=== PATIENT | male | born 1965 | race Caucasian/White ===

== ENCOUNTER 2024-11-12 08:49 | Inpatient (IN) | payer OTHER, SELFPAY ==
[2024-11-12] VITALS (14 sets, daily range): BP systolic 108–163; BP diastolic 67–99; PULSE 89–131; RESP 16–19; TEMP 36.1–37.1; O2SAT 95–100; BMI 24.2
--- NOTE | ~2024-11-12 | US_ITS ---
EXAMINATION: US ABDOMEN LIMITED CLINICAL INFORMATION: Ascites. Elevated liver function tests.. COMPARISON: None available. TECHNIQUE: Real-time ultrasound of the right upper quadrant abdomen using grayscale technique. Limited exam. FINDINGS: Small to moderate amount of ascites. Liver measures 17 cm. Increased echotexture. US/US abdomen limited IMPRESSION: Limited examination demonstrated small to moderate volume of ascites. Electronically signed by: Cosme Vidal MD 11/12/2024 03:14 PM EDT
--- NOTE | ~2024-11-12 | US_ITS ---
EXAMINATION: US ABDOMEN LIMITED CLINICAL INFORMATION: Ascites. COMPARISON: None available. TECHNIQUE: Limited imaging of abdomen was performed. FINDINGS: Limited imaging of the abdomen reveals small amount of fluid not enough for therapeutic purposes. Patient was recently drained in the ER 2 days ago. US/US abdomen limited IMPRESSION: Small amount of free fluid in pelvis not enough for therapeutic paracentesis. The paracentesis has been canceled Electronically signed by: Oli Ambriz MD 11/14/2024 11:46 AM EDT
--- NOTE | ~2024-11-12 | CT_ITS ---
EXAMINATION: CT HEAD WITHOUT CONTRAST CLINICAL INFORMATION: ataxia COMPARISON: None available. TECHNIQUE: Contiguous axial imaging was performed from the skull base to vertex without intravenous administration of contrast. This CT examination was performed using dose optimization techniques as appropriate, variously including the following: *Automated exposure control *Adjustment of mA and/or kV according to patient size (this includes techniques or standardized protocols for targeted exams where dose is matched to indication/reason for exam; i.e. extremities or head) *Use of iterative reconstruction technique DLP: 711 mGy-cm FINDINGS: There is a 1 cm hypodensity in the left cerebellar deep white matter. No acute intracranial hemorrhage, mass effect, midline shift, hydrocephalus or herniation. Bennett-white matter differentiation is normal. Old lacunar infarcts, basal ganglia and extracapsular. Mild prominence of the extra-axial CSF spaces cerebral sulci and ventricles. Sellar/suprasellar region demonstrated no gross masses. Craniocervical junction demonstrates normal position of the cerebellar tonsils. Old traumatic deformity, nasal bones. No air-fluid levels in the included paranasal sinuses. Tympanic cavities and mastoid air cells are aerated. 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 Focal encephalomalacia, left cerebellopontine likely prior/old infarct, left PICA territory. No acute intracranial hemorrhage. Electronically signed by: Cosme Vidal MD 11/12/2024 11:18 AM EDT
--- NOTE | ~2024-11-12 | MR_ITS ---
EXAMINATION: MR BRAIN WITHOUT CONTRAST CLINICAL INFORMATION: Ataxia. COMPARISON: Correlated to CT November 12, 2024. TECHNIQUE: MRI of the brain was obtained using routine sequences without contrast. FINDINGS: No restricted diffusion. No acute intracranial hemorrhage, mass effect, midline shift, hydrocephalus or herniation. Bennett-white matter differentiation is normal. There are few scattered, supratentorial compartment susceptibility signal foci involving mostly right temporal pole. Old lacunar infarcts, left putamen left cerebellopontine with associated susceptibility likely representing old blood products. There is a cylindrical shaped susceptibility signal in the left temporoparietal region. Sellar/suprasellar region demonstrated no signal abnormality or masses. Craniocervical junction demonstrates normal position of the cerebellar tonsils. Flow-void signal within the main cerebral vessels is normal. Prominence of the extra-axial CSF spaces cerebral sulci. Small cavum septa pellucida, congenital. MR/MR head/brain wo con IMPRESSION: No acute stroke/nonhemorrhagic ischemia. Old likely hemorrhagic lacunar infarcts, left putamen and left cerebellum. 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 Old microhemorrhages concerning for hypertensive etiology. Electronically signed by: Cosme Vidal MD 11/13/2024 07:56 AM EDT
--- NOTE | 2024-11-12 08:58 | ECG_ITS ---
Test Reason : ABD PAIN Blood Pressure : */* mmHG Vent. Rate : 126 BPM Atrial Rate : 126 BPM P-R Int : 140 ms QRS Dur : 82 ms QT Int : 296 ms P-R-T Axes : 36 -32 89 degrees QTcB Int : 428 ms Sinus tachycardia Left axis deviation Minimal voltage criteria for LVH, may be normal variant ( R in aVL ) Anterolateral infarct , age undetermined Abnormal ECG No previous ECGs available Referred By: Generic ED Physician Electronically Signed By: Ko Guevara
--- NOTE | 2024-11-12 09:06 | ED_ITS ---
HPI - General Adult General Chief complaint: General Medical Stated complaint: Tingling/numbness in feet, abd bloating Time Seen by Provider: 11/12/24 09:06 Source: patient and RN notes reviewed Mode of arrival: ambulatory Limitations: no limitations History of Present Illness ED Provider: Melania Johnson PA-C HPI narrative: This is a 59-year-old male, with a past medical history of EtOH abuse discontinued 3 weeks ago, who presents emergency department with concerns of abdominal distention, and bilateral leg numbness and tingling for the last 3 weeks. Patient states that he was drinking at least 8 mix vodka drinks a day. He states that he was a drinker for a very long time, stating 50 years. Patient states that 3 weeks ago he stopped drinking alcohol together. He states that he felt as though he was in alcohol withdrawal for several days which has since resolved. He states that since stopping drinking he has developed a very distended abdomen, numbness and tingling into his legs. He states that he also has had some difficulty with ambulation. He denies history of similar symptoms in the past. Denies history of ascites. He states that he has not been seen by a doctor in a ?very long time?. He denies any fevers, chills, chest pain, shortness of breath, nausea, vomiting or diarrhea. He reports that approximately 2-3 weeks ago he had difficulties with his ambulation, and states that he hit his posterior head on the concrete, denies loss of consciousness. He is not on anticoagulation, he does not take any medications daily. MD complaint: Abdominal distention, bilateral leg numbness and tingling Onset (ago): week(s) Radiation: non-radiation Severity: moderate Relieving factors: none Exacerbating factors: none Associated symptoms: denies other symptoms Treatments prior to arrival: none Related Data Home Medications ?Medication ?Instructions ?Recorded ?Confirmed No Known Home Meds 11/12/24 11/12/24 Allergies Allergy/AdvReac Type Severity Reaction Status Date / Time No Known Allergies Allergy Verified 11/12/24 08:56 Review of Systems 2 Review of Systems: Yes all other systems are reviewed and are negative Constitutional: Constitutional: Reports as per [facility] Social History Social History Alcohol intake: former Patient Tobacco Use Status: Former Tobacco user Physical Exam ED Vital Signs: Vital Signs - 24 hr 11/12/24 08:53 11/12/24 09:40 11/12/24 11:03 Temperature 97 F 98.5 F 98.6 F Pulse Rate 128 H 131 H 120 H Respiratory Rate 18 19 18 Blood Pressure 163/91 H 143/80 H 125/84 Pulse Oximetry 99 100 98 Oxygen Delivery Method Room Air Room Air Room Air 11/12/24 11:45 11/12/24 11:53 11/12/24 12:04 Temperature Pulse Rate 122 H 112 H 113 H Respiratory Rate Blood Pressure 137/99 H 145/93 H 137/94 H Pulse Oximetry 98 98 99 Oxygen Delivery Method Room Air Room Air Room Air 11/12/24 12:12 11/12/24 12:18 11/12/24 12:35 Temperature Pulse Rate 111 H 108 H 105 H Respiratory Rate Blood Pressure 143/96 H 146/86 H 143/83 H Pulse Oximetry 98 99 99 Oxygen Delivery Method Room Air Room Air Room Air 11/12/24 12:38 11/12/24 12:48 Temperature Pulse Rate 103 H 106 H Respiratory Rate Blood Pressure 139/86 136/85 Pulse Oximetry 97 99 Oxygen Delivery Method Room Air BMI result Body Mass Index 24.2 Const General: cooperative, comfortable and no acute distress Orientation/consciousness: patient oriented x3 Limitations: no limitations HENMT Head: Yes normal to inspection, Yes normocephalic and Yes atraumatic Ears: hearing grossly normal bilaterally General nose exam: Normal external nose present Face and sinus: Yes normal facial exam Mouth: Normal oral and palatal mucosa present, oropharynx normal and moist mucous membranes Throat: Yes posterior oropharynx normal Eyes General: appearance normal, both eyes and all related structures Eyelids: Yes eyelids normal Conjunctivae: conjunctivae normal Sclerae: sclerae normal Pupils: Equal, round and reactive pupils present EOM: EOMs intact bilaterally Neck Neck: Yes normal visual inspection, Yes full ROM and Yes no lymphadenopathy Lymphatic: no lymphadenopathy noted Chest Chest palpation & inspection: normal inspection of the chest Resp Effort & Inspection: normal respiratory effort and able to speak in complete sentences Auscultation: clear to auscultation bilaterally, no crackles, no rales, no rhonchi and no wheezes Cardio Rate: regular rate Rhythm: regular rhythm Heart sounds: S1 normal heart sound present and S2 normal heart sound present GI Other: Abdomen is profoundly distended, nontender, soft. No rebound or guarding. Skin General skin exam: no rashes or lesions noted Trauma: no lacerations or abrasions Wounds: no wounds Neuro Other: Ataxic gait. General: patient oriented x3 and moves all extremities Cranial nerves: Yes Equal, round and reactive pupils present Cognition (Neuro): normal cognition Gait exam (Neuro): Ataxic gait present Motor exam (neuro): 5/5 motor strength present throughout and Pronator motor function not present Coordination: [id number] test normal Romberg Test: Negative Extrem General: Yes normal to inspection Right upper extremity: normal to inspection Left upper extremity: normal to inspection Right lower extremity: normal to inspection Left lower extremity: normal to inspection Course Reevaluation(s) Reevaluation #1: I perform paracentesis under ultrasound, right lower quadrant fluids sent for analysis Dr Villegas Time: 11:54 Medications Administered Generic Name Dose Route Start Last Admin Trade Name Freq PRN Reason Stop Dose Admin Ceftriaxone Sodium 1 gm 11/12/24 15:00 11/12/24 14:47 Ceftriaxone Sodium 1 Gm Vial IV 1 gm Q24H DION Administration Enoxaparin Sodium 40 mg 11/12/24 15:00 11/12/24 14:42 Enoxaparin Sodium 40 Mg/0.4 Ml Syringe SUBCUT 40 mg Q24H DION Administration Folic Acid 1 mg 11/12/24 14:15 11/12/24 14:22 Folic Acid 1 Mg Tablet PO 1 mg DAILY DION Administration Multivitamins/Vitamin C 1 tab 11/12/24 14:15 11/12/24 14:22 Multivitamin Tablet PO 1 tab DAILY DION Administration Thiamine HCl 100 mg 11/12/24 14:15 11/12/24 14:22 Thiamine Hcl 100 Mg Tablet PO 100 mg DAILY DION Administration Discontinued Medications Generic Name Dose Route Start Last Admin Trade Name Freq PRN Reason Stop Dose Admin Amlodipine Besylate 5 mg 11/12/24 14:02 11/12/24 14:22 Amlodipine Besylate 5 Mg Tablet PO 11/12/24 14:03 5 mg ONCE ONE Administration Protocol Lidocaine HCl 10 ml 11/12/24 11:30 11/12/24 11:50 Lidocaine Hcl 2 % 20 Ml Vial INFILTRATI 11/12/24 11:31 10 ml ONCE ONE Administration Potassium Chloride 40 meq 11/12/24 14:02 11/12/24 14:22 Potassium Chloride Er 20 Meq Tab.Er.Prt PO 11/12/24 14:03 40 meq ONCE ONE Administration Procedures Paracentesis Time Out Performed: Yes Indication: Ascites Procedure: diagnostic paracentesis Location: RLQ Local Anesthetic: lidocaine 1% Amount of anesthesia used (mL): 2 Bedside Ultrasound Used: yes, real-time guidance Amount of fluid obtained (mL): 5,000 Fluid: clear Post Procedure Exam: awake, alert Patient Tolerated Procedure: well Complications: none Additional Comments: paracentesis performed by me Dr Villegas Medical Decision Making Medical Decision Making [facility] Narrative: This is a 59-year-old male who presents emergency department for evaluation of abdominal distention, numbness and tingling into his legs, and difficulty with ambulation for the last 3 weeks. On arrival, patient is hypertensive at 163/91, pulse 128. Denies any chest pain or shortness of breath. Abdomen is profoundly distended, nontender. Patient ambulatory with ataxic gait, all other neurologic examination without any acute findings. EKG performed, sinus tachycardia. Patient is afebrile, nontoxic-appearing. I had this patient also evaluated by my attending physician, Dr. Villegas. Bedside ultrasound revealing a substantial amount of peritoneal fluid. Abdomen is distended. Not thinking that this is bacterial, as this is likely caused by alcoholic cirrhosis. Plan: Labs, CT head, paracentesis Course: Paracentesis performed by my attending physician, Dr. Villegas, consent was obtained. 5 L of peritoneal fluid drained off of abdomen, patient tolerated procedure well without any complications or concerns. Admitted to the hospitalist service for further assessment and treatment. Patient agreeable for transfer of care. Differential Diagnosis Differential Diagnoses: The differential diagnosis associated with the presentation includes ICH, Wernicke's encephalopathy, liver disease, alcohol use disorder Admission/Observation Consideration of admission/observation: Escalation of care including admission/observation considered Lab Data MDM Lab Attestation statement: I reviewed the patient's lab results. Patient with leukocytosis at 13.2, H&H revealing a microcytic anemia, hemoglobin 13, hematocrit 37.8, chemistry revealing slight hypokalemia at 3.1, BUN revealing no evidence of SAMSON, random glucose 134, T bili 2.9, direct bili 2.0, AST elevated at 77, alk phos elevated at 242. Lactic acidosis noted at 2.9, patient has significant liver disease, likely source. 11/12/24 09:10 11/12/24 09:10 Labs: Lab Results 11/12/24 11/12/24 11/12/24 Range/Units 09:10 09:35 09:36 WBC 13.2 H (4.8-10.8) X10*3/uL RBC 3.75 L (4.60-5.80) X10*6/uL Hgb 13.0 L (14.0-18.0) g/dl Hct 37.8 L (42.0-52.0) % MCV 100.8 H (80.0-98.0) fL MCH 34.7 H (27.0-33.0) pg MCHC 34.4 (31.0-36.0) g/dl RDW 14.2 (11.0-16.0) % Plt Count 421 H (160-400) X10*3/uL MPV 9.5 (9.4-12.4) fL Immature Gran % (Auto) 0.5 H (0.0-0.4) % Neut % (Auto) 79.1 H (45-73) % Lymph % (Auto) 11.3 L (20-40) % [place] % (Auto) 7.5 (2-11) % Eos % (Auto) 1.1 (0-4) % Baso % (Auto) 0.5 (0-2) % Lymph # (Auto) 1.5 (1.2-4.9) X10*3/uL [place] # (Auto) 1.0 (0.1-1.2) X10*3/uL Eos # (Auto) 0.2 (0.0-0.4) X10*3/uL Baso # (Auto) 0.1 (0.0-0.2) X10*3/uL Abs Immat Gran (auto) 0.07 H (0.00-0.03) X10*3/uL Absolute Neuts (auto) 10.4 H (2.0-8.3) x10*3/uL Absolute Nucleated RBC 0.000 (0.0-0.012) X10*3/uL Nucleated RBC % (auto) 0.0 (0.0-0.2) /100WBC Sodium 136 (135-145) mmol/L Potassium 3.1 L (3.3-5.1) mmol/L Chloride 102 (96-108) mmol/L Carbon Dioxide 25 (22-29) mmol/L Anion Gap 12 (12-20) BUN 6 L (9-16) mg/dL Creatinine 0.62 (0.5-1.4) mg/dL Estim Creat Clear Calc 142.5 Estimated GFR > 60 Random Glucose 134 H (60-115) mg/dL Lactic Acid (0.5-2.0) mmol/L Calcium 8.7 (8.4-10.2) mg/dL Magnesium 1.7 (1.6-2.6) mg/dL Total Bilirubin 2.9 H (0.0-1.0) mg/dL Direct Bilirubin 2.0 H (0.0-0.5) mg/dL AST 77 H (5-37) U/L ALT 17 (0-40) U/L Alkaline Phosphatase 242 H (39-117) U/L Ammonia (13-55) umol/L Troponin I High Sens 4.3 (<3.5-35.0) ng/L B-Natriuretic Peptide 39 (<100) pg/mL Total Protein 7.5 (6.5-8.0) g/dL Albumin 3.1 L (3.5-5.0) g/dL Lipase 48 (8-78) U/L Vitamin B1 Vitamin B12 Folate Peritoneal WBC X10*3/uL Peritoneal RBC X10*6/uL Periton Neutrophils % Periton Lymphocytes % Peritoneal Monocytes % Peritoneal Other Cells % 11/12/24 11/12/24 11/12/24 Range/Units 09:56 11:32 12:01 WBC (4.8-10.8) X10*3/uL RBC (4.60-5.80) X10*6/uL Hgb (14.0-18.0) g/dl Hct (42.0-52.0) % MCV (80.0-98.0) fL MCH (27.0-33.0) pg MCHC (31.0-36.0) g/dl RDW (11.0-16.0) % Plt Count (160-400) X10*3/uL MPV (9.4-12.4) fL Immature Gran % (Auto) (0.0-0.4) % Neut % (Auto) (45-73) % Lymph % (Auto) (20-40) % Huntington % (Auto) (2-11) % Eos % (Auto) (0-4) % Baso % (Auto) (0-2) % Lymph # (Auto) (1.2-4.9) X10*3/uL Huntington # (Auto) (0.1-1.2) X10*3/uL Eos # (Auto) (0.0-0.4) X10*3/uL Baso # (Auto) (0.0-0.2) X10*3/uL Abs Immat Gran (auto) (0.00-0.03) X10*3/uL Absolute Neuts (auto) (2.0-8.3) x10*3/uL Absolute Nucleated RBC (0.0-0.012) X10*3/uL Nucleated RBC % (auto) (0.0-0.2) /100WBC Sodium (135-145) mmol/L Potassium (3.3-5.1) mmol/L Chloride (96-108) mmol/L Carbon Dioxide (22-29) mmol/L Anion Gap (12-20) BUN (9-16) mg/dL Creatinine (0.5-1.4) mg/dL Estim Creat Clear Calc Estimated GFR Random Glucose (60-115) mg/dL Lactic Acid 2.9 H* (0.5-2.0) mmol/L Calcium (8.4-10.2) mg/dL Magnesium (1.6-2.6) mg/dL Total Bilirubin (0.0-1.0) mg/dL Direct Bilirubin (0.0-0.5) mg/dL AST (5-37) U/L ALT (0-40) U/L Alkaline Phosphatase (39-117) U/L Ammonia 39 (13-55) umol/L Troponin I High Sens (<3.5-35.0) ng/L B-Natriuretic Peptide (<100) pg/mL Total Protein (6.5-8.0) g/dL Albumin (3.5-5.0) g/dL Lipase (8-78) U/L Vitamin B1 Cancelled Vitamin B12 Cancelled Folate Cancelled Peritoneal WBC 0.340 X10*3/uL Peritoneal RBC < 0.002 X10*6/uL Periton Neutrophils 5 % Periton Lymphocytes 25 % Peritoneal Monocytes 4 % Peritoneal Other Cells 66 % Independent Interpretation I performed an independent interpretation of an: EKG Interpretation: EKG sinus tachycardia at a ventricular rate of 126, WI interval 140, QT QTC 296/428, no STEMI. Radiology Impression Discussion of test interpretation with radiology: I have reviewed the radiologist's reading. Radiologist Impression: FINDINGS: There is a 1 cm hypodensity in the left cerebellar deep white matter. No acute intracranial hemorrhage, mass effect, midline shift, hydrocephalus or herniation. Bennett-white matter differentiation is normal. Old lacunar infarcts, basal ganglia and extracapsular. Mild prominence of the extra-axial CSF spaces cerebral sulci and ventricles. Sellar/suprasellar region demonstrated no gross masses. Craniocervical junction demonstrates normal position of the cerebellar tonsils. Old traumatic deformity, nasal bones. No air-fluid levels in the included paranasal sinuses. Tympanic cavities and mastoid air cells are aerated. 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 Focal encephalomalacia, left cerebellopontine likely prior/old infarct, left PICA territory. No acute intracranial hemorrhage. Electronically signed by: Cosme Vidal MD 11/12/2024 11:18 AM EDT Dictated By: Cosme Boogie MD Independent Historian Clinical information obtained from an independent historian. History obtained from or confirmed by: Other (Brother) Critical Care Time Critical Care Time Critical Care Time: Yes Total Critical Care Time: 50 Attestation: I have personally provided critical care time exclusive of time spent on separately billable procedures. Time includes review of lab data, radiology results, discussion with consultants, and monitoring for potential decompensation. Intervention performed as documented. Discharge Plan Discharge Clinical Impression: Ataxia, Abdominal ascites Patient Disposition: Admitted As Inpatient Interventions: Admission Worksheet (ED) Last Done: 11/12/24 15:44 Discharge Date/Time: 11/12/24 16:15
[2024-11-12 09:16] LABS: MANUAL DIFF FLAG NO
[2024-11-12 09:22] LABS: Basophils Absolute Auto 0.1 X10*3/uL (0.0-0.2); Basophils Percent Auto 0.5 % (0-2); Eosinophils Absolute Auto 0.2 X10*3/uL (0.0-0.4); Eosinophils Percent Auto 1.1 % (0-4); Hematocrit 37.8 % (42.0-52.0); Imm Gran Abs Auto 0.07 X10*3/uL (0.00-0.03); Imm Gran Pct Auto 0.5 % (0.0-0.4); Lymphocytes Absolute Auto 1.5 X10*3/uL (1.2-4.9); Lymphocytes Percent Auto 11.3 % (20-40); Mean Corpuscular HGB Conc 34.4 g/dl (31.0-36.0); Mean Corpuscular Hemoglobin 34.7 pg (27.0-33.0); Mean Corpuscular Volume 100.8 fL (80.0-98.0); Mean Platelet Volume 9.5 fL (9.4-12.4); Monocytes Percent Auto 7.5 % (2-11); Neutrophils Absolute Auto 10.4 x10*3/uL (2.0-8.3); Neutrophils Percent Auto 79.1 % (45-73); Platelet Count 421 X10*3/uL (160-400); Red Blood Count 3.75 X10*6/uL (4.60-5.80); Red Cell Distribution Width 14.2 % (11.0-16.0); White Blood Count 13.2 X10*3/uL (4.8-10.8)
[2024-11-12 09:41] LABS: Alanine Aminotransferase 17 U/L (0-40); Albumin Level 3.1 g/dL (3.5-5.0); Alkaline Phosphatase 242 U/L (39-117); Anion Gap 12 (12-20); Aspartate Amino Transferase 77 U/L (5-37); Bilirubin Total 2.9 mg/dL (0.0-1.0); Blood Urea Nitrogen 6 mg/dL (9-16); Calcium 8.7 mg/dL (8.4-10.2); Carbon Dioxide 25 mmol/L (22-29); Chloride 102 mmol/L (96-108); Creatinine Clr Calc Pharmacy 142.5; Estimated Glomerular Filt Rate > 60; Glucose Random 134 mg/dL (60-115); Potassium 3.1 mmol/L (3.3-5.1); Sodium 136 mmol/L (135-145); Total Protein 7.5 g/dL (6.5-8.0)
[2024-11-12 10:21] LABS: Magnesium 1.7 mg/dL (1.6-2.6)
[2024-11-12 10:30] LABS: Lipase 48 U/L (8-78)
[2024-11-12 10:30] LABS: B Type Natriuretic Peptide 39 pg/mL (<100); Troponin-I High Sensitivity 4.3 ng/L (<3.5-35.0)
--- NOTE | 2024-11-12 11:22 | PC.NURSE ---
Pt A&O X4 abd distended and firm and plan is to do pericentesis. Provider explained to pt. Pt verbalizes understanding. Pt in NAD, able to ambulate to room. changed and placed on full monitor.
[2024-11-12 11:50] LABS: Ammonia 39 umol/L (13-55)
[2024-11-12] MEDS: Lidocaine HCl 2 % 20 ML VIAL 10 ML INFILTRATI (11:50)
--- NOTE | 2024-11-12 12:02 | PC.NURSE ---
Pt Tolerating pericentesis well. Provider remains at bedside. VSS. Pt denies complaints.
[2024-11-12 12:07] LABS: Lactic Acid 2.9 mmol/L (0.5-2.0)
[2024-11-12 12:18] LABS: MN% 84.3 %; PMN% 15.7 %
[2024-11-12 12:20] LABS: RBC Peritoneal Fluid < 0.002 X10*6/uL
[2024-11-12 13:20] LABS: BF Shift QC OK YES; Lymphocyte Peritoneal Fl 25 %; Man Diluent Bkgrd OK YES; Monocytes Peritoneal Fl 4 %; Neutrophils Peritoneal Fluid 5 %; Other Peritioneal Fl 66 %
[2024-11-12 13:38] LABS: Reflex Lactate? Lactic Acid Added
--- NOTE | 2024-11-12 13:52 | P.HPHOSP_ITS ---
History of Present Illness Date of Service: 11/12/24 Chief Complaint: Ascites, Ataxia 59-year-old male with a past medical history of ETOH abuse who reports he stopped drinking 36 days ago presented to emergency department with abdominal distention, bilateral leg numbness and tingling for about 3 weeks. Patient reports drinking about 8 mix vodka drinks a day for several years. Patient reports he stopped drinking alcohol 36 days ago and self detoxed. He experienced GI symptoms per his report, denies any history of seizure activity. He reports difficulty with ambulation and experienced a fall about three weeks go when he fell on the back of his head. He reports he has not seen a doctor in several years, has no other significant medical history and takes no medications. On exam, he denies any fevers, chills, chest pain, shortness of breath, nausea, vomiting or diarrhea. Reports that he feels better since the Doctor removed the fluid. In the ED a paracentesis was performed with 5L of clear straw colored fluid removed. Fluid sent for analysis. Patient with leukocytosis at 13.2, H&H revealing a microcytic anemia, H&H 13/37.8, hypokalemia at 3.1, no evidence of SAMSON, random glucose 134, T bili 2.9, direct bili 2.0, AST elevated at 77, alk phos elevated at 242. Head CT negative for any acute intracranial hemorrhage. Multifocal old lacunar infarcts present likely related to small-vessel occlusive disease. Patient will be admitted for further workup for ataxia. Review of Systems 2 Review of Systems: Denies any shortness of breath, chest pain, dizziness, lightheadedness, abdominal pain or discomfort, nausea vomiting or diarrhea. + tingling to lower extremities to level of knees. + sensation. PMFSH Social History Alcohol intake: former Smoked in Last 30 Days: No Use of substances other than those prescribed or required for medical reasons: No Advance Directives: No Advance Directives Information Provided: Yes Meds Allergies Allergy/AdvReac Type Severity Reaction Status Date / Time No Known Allergies Allergy Verified 11/12/24 08:56 Home Medications ?Medication ?Instructions ?Recorded ?Confirmed ?Last Taken ?Type No Known Home Meds 11/12/24 11/12/24 Un known History Physical Exam 2 Vital Signs and Narrative: Vital Signs: Last Vital Signs Temp 98.6 F 11/12/24 11:03 Pulse 106 H 11/12/24 12:48 Resp 18 11/12/24 11:03 BP 136/85 11/12/24 12:48 Pulse Ox 99 11/12/24 12:48 O2 Del Method Room Air 11/12/24 12:48 BMI result Body Mass Index 24.2 CONST: Alert and oriented, in NAD. Well nourished. Pale, chronically ill appearing HEENT: Normocephalic, atraumatic, MMM, Eyes clear, Neck supple RESP: Lungs clear, RRR even and regular. No wheezing, crackles or rhonchi HEART:,RRR, S1, S2. no edema GI:Abdomen Soft NT, + BS times four. + distension, soft, :Deferred SKIN: Warm dry and intact, no visible lesions or rashes, no wounds NEURO:CN II-XII Intact bilaterally, Sensation intact. Speech clear. Did not observe ambulation, sat up with assist. Moves all extremities. + CMS, Strong pedal pulses PSYCH: Normal affect Results Labs 11/12/24 09:10 11/12/24 09:10 Labs: Laboratory Results - last 24 hr 11/12/24 11/12/24 11/12/24 09:10 09:35 09:36 MCV 100.8 H MCH 34.7 H MCHC 34.4 RDW 14.2 Plt Count 421 H MPV 9.5 Immature Gran % (Auto) 0.5 H Neut % (Auto) 79.1 H Lymph % (Auto) 11.3 L [place] % (Auto) 7.5 Eos % (Auto) 1.1 Baso % (Auto) 0.5 Lymph # (Auto) 1.5 [place] # (Auto) 1.0 Eos # (Auto) 0.2 Baso # (Auto) 0.1 Abs Immat Gran (auto) 0.07 H Absolute Neuts (auto) 10.4 H Absolute Nucleated RBC 0.000 Nucleated RBC % (auto) 0.0 Anion Gap 12 Estim Creat Clear Calc 142.5 Estimated GFR > 60 Random Glucose 134 H Lactic Acid Calcium 8.7 Magnesium 1.7 Total Bilirubin 2.9 H Direct Bilirubin 2.0 H AST 77 H ALT 17 Alkaline Phosphatase 242 H Ammonia Troponin I High Sens 4.3 B-Natriuretic Peptide 39 Total Protein 7.5 Albumin 3.1 L Lipase 48 Vitamin B1 Vitamin B12 Folate Peritoneal WBC Peritoneal RBC Periton Neutrophils Periton Lymphocytes Peritoneal Monocytes Peritoneal Other Cells 11/12/24 11/12/24 11/12/24 09:56 11:32 12:01 MCV MCH MCHC RDW Plt Count MPV Immature Gran % (Auto) Neut % (Auto) Lymph % (Auto) Fa[place] % (Auto) Eos % (Auto) Baso % (Auto) Lymph # (Auto) [place] # (Auto) Eos # (Auto) Baso # (Auto) Abs Immat Gran (auto) Absolute Neuts (auto) Absolute Nucleated RBC Nucleated RBC % (auto) Anion Gap Estim Creat Clear Calc Estimated GFR Random Glucose Lactic Acid 2.9 H* Calcium Magnesium Total Bilirubin Direct Bilirubin AST ALT Alkaline Phosphatase Ammonia 39 Troponin I High Sens B-Natriuretic Peptide Total Protein Albumin Lipase Vitamin B1 Cancelled Vitamin B12 Cancelled Folate Cancelled Peritoneal WBC 0.340 Peritoneal RBC < 0.002 Periton Neutrophils 5 Periton Lymphocytes 25 Peritoneal Monocytes 4 Peritoneal Other Cells 66 Imaging Radiologist's Impressions: Impressions Head CT 11/12/24 10:47 IMPRESSION: 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 Focal encephalomalacia, left cerebellopontine likely prior/old infarct, left PICA territory. No acute intracranial hemorrhage. Electronically signed by: Cosme Vidal MD 11/12/2024 11:18 AM EDT RP Assessment and Plan (1) Ataxia: Status: Acute (2) Abdominal ascites: Status: Acute Plan 59-year-old male who presented to the ED with ataxia and abdominal distention. Patient with no prior past medical history. Patient is status post paracentesis of 5 L fluid, we will be admitted for further workup of ataxia and liver disease. Ascites/Elevated LFTs SP thoracentesis of 5 L-Sent for culture Liver US pending Ammonia level WNL Check Mag, Vit D. Folate, B12, Hepatitis panel Replace potassium Labs in am Consult placed to GI Empiric ceftriaxone to cover SBP pending fluid studies. Amlodipine plan 1 for elevated blood pressure ETOH abuse No evidence of Withdrawals, Last drink self reported 36 days ago. CIWA scale Ataxia Brain/Head MRI ordered EEG ordered. Consult to neurology CODE Status: FULL CODE DVT prophylaxis Lovenox Quality Stroke Does the patient have a stroke diagnosis?: No VTE Prior VTE?: No VTE Risk Level:: Medical - moderate - high VTE Device Contraindication: Treatment Not Indicated VTE Drug Contraindication: N/A - Med Ordered
[2024-11-12] MEDS: Folic Acid 1 MG TABLET PO (14:22)
[2024-11-12] MEDS: Thiamine HCL 100 MG TABLET PO (14:22)
[2024-11-12] MEDS: Multivitamin TABLET 1 TAB PO (14:22)
[2024-11-12] MEDS: amLODIPine Besylate 5 MG TABLET PO (14:22)
[2024-11-12] MEDS: Potassium Chloride ER 20 MEQ TAB.ER.PRT 40 MEQ PO (14:22)
[2024-11-12] MEDS: Enoxaparin Sodium 40 MG/0.4 ML SYRINGE SUBCUT (14:42)
[2024-11-12] MEDS: cefTRIAXone sodium 1 GM VIAL IV (14:47)
--- NOTE | 2024-11-12 15:08 | PHA.MEDREC ---
Addendum entered by Musa [facility] 11/12/24 15:42: med rec reviewed Original Note: Pharmacy Consult ? Medication Reconciliation Pharmacy has completed the medication reconciliation. Spoke with pt and he confirmed he was taking a Multivitamin up until 2 weeks ago when he ran out and never got more and stated he is not taking anything else for medications.
[2024-11-12 15:19] LABS: INTERNATIONAL NORM RATIO 1.6 (0.9-1.1); Prothrombin Time 18.6 SEC (10.9-12.4)
[2024-11-12 15:29] LABS: Magnesium 1.7 mg/dL (1.6-2.6)
[2024-11-12 15:58] LABS: Appearance Urine Clear; Color Urine Dark Yellow; Glucose Urine UA Negative (Negative); Leukocyte Esterase Urine Small (1+) (Negative); Nitrite Urine Positive (Negative); PH 5.5 (5.0-9.0); UMIC TRIGGER UACC YES; Urine Blood Negative (Negative); Urine Ketones Trace mg/dL (Negative); Urine Protein Trace mg/dL (Neg-Trace)
[2024-11-12 16:05] LABS: Folate 16.8 ng/mL (> or = 4.0); Vitamin B12 640 pg/mL (200-900)
--- NOTE | 2024-11-12 16:14 | PC.NURSE ---
MRI at bedside to bring pt down for test, MRI and floor made aware that pt can go to bed assignment when done with MRI
[2024-11-12 16:18] LABS: Bacteria Urine None Seen (None Seen); RBC Urine 0-2 /HPF (0-2); Squamous Epithelial Cell Urine 0-2 /HPF (0-2); UACC Culture Trigger YES; WBC Urine 0-5 /HPF (0-5)
[2024-11-12] MEDS: 0.9 % Sodium Chloride Flush 3 ML SYRINGE IVFLUSH (17:57)
--- NOTE | 2024-11-13 | EEG_ITS ---
FINDINGS: The waking background activity consists of low voltage, fast frequency seen diffusely intermixed with muscle artifacts anteriorly. Photic stimulation is without activation. Hyperventilation was omitted. No sleep stages are identified. No focal, lateralizing, or paroxysmal discharges are seen. IMPRESSION: This awake EEG is within normal limits. MD DAVID Simental/GETACHEW / [id number]
[2024-11-13] MEDS: 0.9 % Sodium Chloride Flush 3 ML SYRINGE IVFLUSH ×3 (00:32→15:11)
--- NOTE | 2024-11-13 00:43 | CONS_ITS ---
DATE OF SERVICE: 11/12/2024 REFERRING PROVIDER: Dorie Alexander DNP REASON FOR CONSULTATION: Ascites. HISTORY OF PRESENT ILLNESS: Mr. Jacobo is a pleasant 59-year-old man with a history of heavy alcohol usage in the past, who presented to the emergency room earlier in the day with complaints of abdominal distention and ataxia. He reports drinking upwards of 8 to 10 alcoholic drinks on a regular basis and stopped approximately 36 days ago on his own. He did have some withdrawal symptoms which included shakiness, but had no seizures. He has had some neuropathic type pain involving both lower extremities and did have a fall at home. He reports that over the last 3 weeks, he has had increasing abdominal girth with no abdominal pain, fevers, or chills, but some shortness of breath was associated with this. He was evaluated in the emergency department with laboratory studies and imaging, which are reviewed. Paracentesis was done with removal of 5 L of fluid and he reports improvement in his symptoms. He denies any history of variceal bleeding, jaundice, or family history of liver disease. He denies any risk factors for hepatitis and has never had problems with ascites before this. PAST MEDICAL HISTORY: He denies other medical or surgical illnesses. He has not seen a doctor for some time. CURRENT MEDICATIONS: His current medication list is reviewed in the chart. He takes no regular medications as an outpatient except for occasional Tylenol for headaches. ALLERGIES: THERE ARE NONE REPORTED. FAMILY HISTORY: This is negative for liver disease. SOCIAL HISTORY: He denies tobacco use and substance abuse. Alcohol use is as noted above. REVIEW OF SYSTEMS: SKIN: No pruritus. HEENT: Negative. CARDIOPULMONARY: No shortness of breath or chest pain. GASTROINTESTINAL: As above. GENITOURINARY: Negative. NEUROPSYCHIATRIC: Negative. PHYSICAL EXAMINATION: GENERAL: Shows a pleasant male, lying comfortably in bed. VITAL SIGNS: Reviewed in the electronic medical record. SKIN: Pale. HEENT: Shows no scleral icterus. NECK: Without lymphadenopathy or thyromegaly. LUNGS: Clear. HEART: Shows a regular rate and rhythm. S1, S2. No murmur. ABDOMEN: Soft without focal masses or tenderness. There does appear to be some residual ascites fluid. Bowel sounds are present. No organomegaly is noted. EXTREMITIES: Show no edema. LABORATORY STUDIES AND IMAGING STUDIES: Reviewed. His ultrasound shows a [id number] volume of ascites. Liver was described as measuring 17 cm with increased echotexture. IMPRESSION: Ascites with alcoholic liver disease, currently he is much improved after having had paracentesis. I would recommend starting furosemide 40 mg daily and spironolactone 100 mg daily and monitoring his electrolytes. I discussed with him the need to avoid alcohol. He appears to understand this. I also discussed the need to monitor his fluid intake and limit this to 1.5 to 2 L of fluid on a daily basis and try to reach a negative volume of urine output versus oral intake of 500 cc out more than in. We discussed limiting salt in his diet and he will follow up in the office after he is discharged. So far, laboratory studies on the ascites fluid have shown no evidence of spontaneous bacterial peritonitis. Other laboratory studies including albumin are pending. He will ultimately need further evaluation with upper endoscopy as an outpatient as he has never had colonoscopy. This should also be done. We discussed this as well. Thanks for asking me to see him. I will follow him in the hospital with you. MD ROSALEE Flannery/GETACHEW / [id number] MTDD
[2024-11-13 04:00] VITALS: BP 122/76; PULSE 93; RESP 16; TEMP 37.1; O2SAT 94
[2024-11-13 07:36] LABS: MANUAL DIFF FLAG NO
[2024-11-13 07:42] LABS: Basophils Absolute Auto 0.1 X10*3/uL (0.0-0.2); Basophils Percent Auto 0.5 % (0-2); Eosinophils Absolute Auto 0.2 X10*3/uL (0.0-0.4); Eosinophils Percent Auto 1.4 % (0-4); Hematocrit 34.9 % (42.0-52.0); Hemoglobin 11.9 g/dl (14.0-18.0); Imm Gran Abs Auto 0.05 X10*3/uL (0.00-0.03); Imm Gran Pct Auto 0.4 % (0.0-0.4); Lymphocytes Absolute Auto 1.6 X10*3/uL (1.2-4.9); Mean Corpuscular HGB Conc 34.1 g/dl (31.0-36.0); Mean Corpuscular Hemoglobin 34.2 pg (27.0-33.0); Mean Corpuscular Volume 100.3 fL (80.0-98.0); Monocytes Percent Auto 8.5 % (2-11); Neutrophils Absolute Auto 8.4 x10*3/uL (2.0-8.3); Neutrophils Percent Auto 75.2 % (45-73); Platelet Count 348 X10*3/uL (160-400); Red Blood Count 3.48 X10*6/uL (4.60-5.80); Red Cell Distribution Width 14.2 % (11.0-16.0); White Blood Count 11.1 X10*3/uL (4.8-10.8)
[2024-11-13 07:51] VITALS: BP 130/71; PULSE 89; RESP 16; TEMP 37.1; O2SAT 97
[2024-11-13 07:57] LABS: Alanine Aminotransferase 13 U/L (0-40); Albumin Level 2.6 g/dL (3.5-5.0); Alkaline Phosphatase 204 U/L (39-117); Anion Gap 12 (12-20); Aspartate Amino Transferase 65 U/L (5-37); Bilirubin Total 2.6 mg/dL (0.0-1.0); Blood Urea Nitrogen 5 mg/dL (9-16); Carbon Dioxide 25 mmol/L (22-29); Chloride 103 mmol/L (96-108); Estimated Glomerular Filt Rate > 60; Glucose Random 101 mg/dL (60-115); Potassium 3.6 mmol/L (3.3-5.1); Sodium 136 mmol/L (135-145); Total Protein 6.3 g/dL (6.5-8.0)
[2024-11-13] MEDS: Thiamine HCL 100 MG TABLET PO (08:18)
[2024-11-13] MEDS: Folic Acid 1 MG TABLET PO (08:18)
[2024-11-13] MEDS: Multivitamin TABLET 1 TAB PO (08:18)
[2024-11-13 08:32] LABS: HBc Num1 0.26 S/CO (0.00-0.79); HBsAGNum1 0.49 S/CO (0.00-0.99); Hepatitis A Antibody IgM 0.18 Index (0-0.79); Hepatitis B Core Antibody Nonreactive (Nonreactive); Hepatitis B Surface Antigen Negative (Negative); ~HepC Num1 0.17 S/CO (0.00-0.79); ~Hepatitis A Antibody IgM Nonreactive (Nonreactive); ~Hepatitis B Surface Antibody NONREACTIVE (Nonreactive); ~Hepatitis C Antibody Nonreactive (Nonreactive)
--- NOTE | 2024-11-13 08:33 | MHC.CM.PN ---
CM met with Patient at bedside and provided him with the PCP pamphlet to assist him with choosing a PCP. Patient lives in a house with his and 18 year old Son and he required no services nor DME [employer]. Home/self care is Patient's goal and CM has initiated and will follow for dc planning. Patient's Brother/Anil will transport to home at time of dc. Patient indicated that he is not yet ready to complete a HCP.
--- NOTE | 2024-11-13 09:07 | P.PNGI_ITS ---
Subjective Subjective Date of Service: 11/13/24 Interval History: tolerating diet abdomen feels better after paracentesis Critical Care Time (minutes): 0 Physical Exam 2 Vital Signs: Vital Signs: Last Vital Signs Temp 98.7 F 11/13/24 07:51 Pulse 89 11/13/24 07:51 Resp 16 11/13/24 07:51 BP 130/71 11/13/24 07:51 Pulse Ox 97 11/13/24 07:51 O2 Del Method Room Air 11/13/24 07:51 BMI result Body Mass Index 24.2 GI: Other: abdomen is soft and nontender Objective Data Labs 11/13/24 06:55 11/13/24 06:55 Procedures Date of Service Date of Service: 11/13/24 Progress Note: A&P Assessment and plan (1) Abdominal ascites: Status: Acute Assessment and Plan: doing well diuretics have been started us does not mention cirrhosis but was a limited exam metabolic and autoimmune labs ordered. Time Spent With Patient Time: Total time managing care of this patient today ____ minutes. Quality Stroke Does the patient have a stroke diagnosis?: No VTE Prior VTE?: No VTE Risk Level:: Medical - moderate - high VTE Device Contraindication: Treatment Not Indicated VTE Drug Contraindication: N/A - Med Ordered
--- NOTE | 2024-11-13 09:43 | P.CNNE_ITS ---
History of Present Illness Data of Consult Service Date: 11/13/24 Primary Care Provider: Unknown Physician HPI Reason for consult: Weakness and loss of balance 59 years old man who has been heavily drinking 4 years until about a month ago when he stopped drinking. Recently started having abdominal swelling and pain and was admitted for that reason but also complain of unsteadiness and weakness prompting this consultation. He was complaining of numbness and tingling in his feet. There was no recent cold or flu-like illness or diarrhea. No recent surgery or trauma. When I saw him in the morning he said that belly and stomach felt fine. Review of Systems 2 Review of Systems: Heavy alcohol drinking until recently. PMFSH Social History Social History Household Members: Spouse and Children Housing: House Do you presently have visiting nurse or other home services: No Alcohol intake: former Patient Tobacco Use Status: Never used Tobacco service: No Meds Allergies Allergy/AdvReac Type Severity Reaction Status Date / Time No Known Allergies Allergy Verified 11/12/24 08:56 Active Medications: Current Medications Acetaminophen (Acetaminophen 325 Mg Tablet) 650 mg PO Q6H PRN PRN Reason: Pain, Mild 1-3,fever,headache Calcium Carbonate (Calcium Carbonate 750 Mg Tab.Chew) 750 mg PO Q4H PRN PRN Reason: Heartburn Ceftriaxone Sodium (Ceftriaxone Sodium 1 Gm Vial) 1 gm IV Q24H COUNT INCLUDES THE [facility] Last Admin: 11/12/24 14:47 Dose: 1 gm Enoxaparin Sodium (Enoxaparin Sodium 40 Mg/0.4 Ml Syringe) 40 mg SUBCUT Q24H COUNT INCLUDES THE [facility] Last Admin: 11/12/24 14:42 Dose: 40 mg Folic Acid (Folic Acid 1 Mg Tablet) 1 mg PO DAILY COUNT INCLUDES THE [facility] Last Admin: 11/13/24 08:18 Dose: 1 mg Furosemide (Furosemide 40 Mg Tablet) 40 mg PO DAILY COUNT INCLUDES THE [facility]; Protocol Magnesium Hydroxide (Milk Of Magnesia 30 Ml Oral.Susp) 30 ml PO DAILY PRN PRN Reason: Constipation Melatonin (Melatonin 3 Mg Tablet) 6 mg PO BEDTIME PRN PRN Reason: Insomnia Multivitamins/Vitamin C (Multivitamin Tablet) 1 tab PO DAILY COUNT INCLUDES THE [facility] Last Admin: 11/13/24 08:18 Dose: 1 tab Ondansetron HCl (Ondansetron Hcl 4 Mg/2 Ml Vial) 4 mg IVPUSH Q8H PRN PRN Reason: Nausea and Vomiting Sodium Chloride (0.9 % Sodium Chloride Flush 3 Ml Syringe) 3 ml IVFLUSH QSHIFT DION Last Admin: 11/13/24 08:20 Dose: 3 ml Spironolactone (Spironolactone 25 Mg Tablet) 100 mg PO DAILY [facility]ION; Protocol Thiamine HCl (Thiamine Hcl 100 Mg Tablet) 100 mg PO DAILY [facility]ION Last Admin: 11/13/24 08:18 Dose: 100 mg Home Medications ?Medication ?Instructions ?Recorded ?Confirmed ?Last Taken ?Type No Known Home Meds 11/12/24 11/12/24 Un known History Physical Exam 2 Vital Signs: Vital Signs: Last Vital Signs Temp 98.7 F 11/13/24 07:51 Pulse 89 11/13/24 07:51 Resp 16 11/13/24 07:51 BP 130/71 11/13/24 07:51 Pulse Ox 97 11/13/24 07:51 O2 Del Method Room Air 11/13/24 07:51 BMI result Body Mass Index 24.2 Neuro: Other: He is alert and awake with normal spontaneity of speech fluency comprehension and affect. Face is symmetrical. Visual chiang are full. Moderate ljrxqk-ku-dlca and sfms-vd-bgzs ataxia is noted. Diffuse muscle atrophy with loss of reflexes in legs is present. Plantars were flat. Speech is normal. Results Labs 11/13/24 06:55 11/13/24 06:55 Labs: Short CBC 11/13/24 Range/Units 06:55 WBC 11.1 H (4.8-10.8) X10*3/uL Hgb 11.9 L (14.0-18.0) g/dl Hct 34.9 L (42.0-52.0) % Plt Count 348 (160-400) X10*3/uL BMP 11/13/24 06:55 Sodium 136 Potassium 3.6 Chloride 103 Carbon Dioxide 25 BUN 5 L Creatinine 0.57 Calcium 8.0 L D Liver Function 11/13/24 Range/Units 06:55 Total Bilirubin 2.6 H (0.0-1.0) mg/dL AST 65 H (5-37) U/L ALT 13 (0-40) U/L Alkaline Phosphatase 204 H (39-117) U/L Albumin 2.6 L (3.5-5.0) g/dL Urine 06/18/25 Range/Units 15:47 Urine Color Dark Yellow Urine Appearance Clear Urine pH 5.5 (5.0-9.0) Ur Specific [place] 1.020 (1.005-1.025) Urine Protein Trace (Neg-Trace) mg/dL Urine Glucose (UA) Negative (Negative) mg/dL CAT scan of brain an MRI of brain were reviewed. Mild diffuse cerebral atrophy and minimal microvascular ischemic changes were noted. 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 For now my recommendation is to address his abdominal issues, supplement with vitamins especially B complex vitamins and have outpatient EMG nerve conduction study. PT OT consultation is recommended. Procedures Date of Service Date of Service: 11/13/24
[2024-11-13] MEDS: Furosemide 40 MG TABLET PO (09:51)
[2024-11-13] MEDS: Spironolactone 25 MG TABLET 100 MG PO (09:52)
[2024-11-13 11:26] VITALS: BP 134/87; PULSE 102; RESP 18; TEMP 37.1; O2SAT 96
[2024-11-13] MEDS: cefTRIAXone sodium 1 GM VIAL IV (14:06)
[2024-11-13] MEDS: Enoxaparin Sodium 40 MG/0.4 ML SYRINGE SUBCUT (14:06)
[2024-11-13 15:03] VITALS: BP 121/78; PULSE 104; RESP 20; TEMP 37.3; O2SAT 96
[2024-11-13] MEDS: Calcium Carbonate 750 MG TAB.CHEW PO (17:10)
--- NOTE | 2024-11-13 17:24 | HO.PM.IMPN ---
Subjective Subjective Date of Service: 11/13/24 Interval History: No acute events overnight Feeling much better Distention improved, no abdominal pain Less numbness and tingling lower extremities Denies shortness or breath or difficulty breathing No chest pain/pressure, palpitations Denies nausea, vomiting Review of Systems Negative except for that which is stated in the [facility] Physical Exam Vital Signs: Vital Signs: Last Vital Signs Temp 99.1 F 11/13/24 15:03 Pulse 104 H 11/13/24 15:03 Resp 20 11/13/24 15:03 BP 121/78 11/13/24 15:03 Pulse Ox 96 11/13/24 15:03 O2 Del Method Room Air 11/13/24 15:03 BMI result Body Mass Index 24.2 General: AOx3, no acute distress Resp: CTA bilaterally CVS: S1, S2, RRR GI: +BS, NT. Abd soft with mild distention Skin: Warm, dry Neuro: Cranial nerves II-XII grossly intact bilaterally. Motor grossly intact bilaterally Extremities: No edema Psych: Appropriate affect Objective Data Active Medications Acetaminophen (Acetaminophen 325 Mg Tablet) 650 mg PO Q6H PRN PRN Reason: Pain, Mild 1-3,fever,headache Calcium Carbonate (Calcium Carbonate 750 Mg Tab.Chew) 750 mg PO Q4H PRN PRN Reason: Heartburn Last Admin: 11/13/24 17:10 Dose: 750 mg Documented By: JUSTICE Ceftriaxone Sodium (Ceftriaxone Sodium 1 Gm Vial) 1 gm IV Q24H [facility] Last Admin: 11/13/24 14:06 Dose: 1 gm Documented By: TALYA Enoxaparin Sodium (Enoxaparin Sodium 40 Mg/0.4 Ml Syringe) 40 mg SUBCUT Q24H [facility] Last Admin: 11/13/24 14:06 Dose: 40 mg Documented By: TALYA Folic Acid (Folic Acid 1 Mg Tablet) 1 mg PO DAILY [facility] Last Admin: 11/13/24 08:18 Dose: 1 mg Documented By: TALYA Furosemide (Furosemide 40 Mg Tablet) 40 mg PO DAILY [facility]; Protocol Last Admin: 11/13/24 09:51 Dose: 40 mg Documented By: TALYA Magnesium Hydroxide (Milk Of Magnesia 30 Ml Oral.Susp) 30 ml PO DAILY PRN PRN Reason: Constipation Melatonin (Melatonin 3 Mg Tablet) 6 mg PO BEDTIME PRN PRN Reason: Insomnia Multivitamins/Vitamin C (Multivitamin Tablet) 1 tab PO DAILY [facility] Last Admin: 11/13/24 08:18 Dose: 1 tab Documented By: TALYA Ondansetron HCl (Ondansetron Hcl 4 Mg/2 Ml Vial) 4 mg IVPUSH Q8H PRN PRN Reason: Nausea and Vomiting Sodium Chloride (0.9 % Sodium Chloride Flush 3 Ml Syringe) 3 ml IVFLUSH QSHIFT [facility] Last Admin: 11/13/24 15:11 Dose: 3 ml Documented By: JUSTICE Spironolactone (Spironolactone 25 Mg Tablet) 100 mg PO DAILY [facility]; Protocol Last Admin: 11/13/24 09:52 Dose: 100 mg Documented By: TALYA Thiamine HCl (Thiamine Hcl 100 Mg Tablet) 100 mg PO DAILY [facility] Last Admin: 11/13/24 08:18 Dose: 100 mg Documented By: TALYA Labs 11/13/24 06:55 11/13/24 06:55 Labs: Laboratory Results - last 24 hr 11/12/24 11/13/24 15:03 06:55 MCV 100.3 H MCH 34.2 H MCHC 34.1 RDW 14.2 Plt Count 348 MPV 10.0 Immature Gran % (Auto) 0.4 Neut % (Auto) 75.2 H Lymph % (Auto) 14.0 L [place] % (Auto) 8.5 Eos % (Auto) 1.4 Baso % (Auto) 0.5 Lymph # (Auto) 1.6 [place] # (Auto) 1.0 Eos # (Auto) 0.2 Baso # (Auto) 0.1 Abs Immat Gran (auto) 0.05 H Absolute Neuts (auto) 8.4 H Absolute Nucleated RBC 0.000 Nucleated RBC % (auto) 0.0 Anion Gap 12 Estim Creat Clear Calc 155.0 Estimated GFR > 60 Random Glucose 101 Calcium 8.0 L D Total Bilirubin 2.6 H AST 65 H ALT 13 Alkaline Phosphatase 204 H Total Protein 6.3 L Albumin 2.6 L Hepatitis A IgM Ab Nonreactive Hep Bs Antigen Negative Hep Bs Antibody NONREACTIVE Hep B Core Total Ab Nonreactive Hepatitis C Ab (EIA) Nonreactive Microbiology Microbiology Results: Microbiology 11/12/24 11:33 Blood Culture - Preliminary Blood - Venous No growth after 24 hours. 11/12/24 11:32 Blood Culture - Preliminary Blood - Venous No growth after 24 hours. 11/12/24 16:18 Urine Culture - Preliminary Urine clean catch - Clean Catch Midstream No growth to date. Assessment and Plan (1) Abdominal ascites: Status: Acute (2) Ataxia: Status: Acute Plan 59-year-old male who presented to the ED with ataxia and abdominal distention. Patient with no prior past medical history. Patient is status post paracentesis of 5 L fluid. Was admitted for further workup of ataxia and liver disease. Ascites/Elevated LFTs S/P thoracentesis of 5 L-Sent for culture Feels much improved Ammonia level WNL; hepatitis panel negative Will start furosemide 40mg and spironolactone 100mg daily per GI Follow lytes Low salt diet, 2L fluid restriction Empiric ceftriaxone to cover SBP pending fluid studies Will need EGD and colonoscopy outpatient Acute lactic acidosis, resolved Lactic acid 2.9 at time of presentation, 2.0 after IVF Secondary to above, not sepsis Peritoneal fluid studies so far negative for SBP, continue to follow Empiric ceftriaxone for now pending full fluid studies Alcohol use disorder Last drink over one month ago No evidence of withdrawal, can discontinue CIWA scale Addiction medicine consult Ataxia Brain/Head MRI showed Neurology consulted, thought likely alcohol-induced chronic peripheral neuropathy resulting in loss of strength and balance Supplementation multivitamin and vitamin-B complex Outpatient EMG nerve conduction study PT/OT consultation GERD Will start on PPI CODE Status: FULL CODE DVT prophylaxis Lovenox Pt will require continued hospital stay due to need for PT/OT evaluation as well as electrolyte and BP response to diuresing. Quality Stroke Does the patient have a stroke diagnosis?: No VTE Prior VTE?: No VTE Risk Level:: Medical - moderate - high VTE Device Contraindication: Treatment Not Indicated VTE Drug Contraindication: N/A - Med Ordered
[2024-11-13] MEDS: Omeprazole 40 MG CAPSULE.DR PO (17:48)
[2024-11-13 20:00] VITALS: BP 126/84; PULSE 98; RESP 16; TEMP 36.6; O2SAT 97
[2024-11-14] VITALS (8 sets, daily range): BP systolic 115–137; BP diastolic 75–89; PULSE 88–103; RESP 16–18; TEMP 36.1–37.7; O2SAT 95–98; BMI 23.1
[2024-11-14] MEDS: Omeprazole 40 MG CAPSULE.DR PO (06:22)
--- NOTE | 2024-11-14 07:54 | P.PNIM_ITS ---
Subjective Subjective Date of Service: 11/14/24 Interval History: Reports some increased abdominal swelling and discomfort but no deangelo abdominal pain No other significant overnight events Has been urinating a lot, monitoring p.o. fluid intake Denies fever, chills No abdominal pain Denies nausea, vomiting Was seen and evaluated by GI earlier in the day who was scheduled repeat paracentesis for later in the day Review of Systems Review of Systems: Yes all other systems are reviewed and are negative Physical Exam 2 Vital Signs: Vital Signs: Last Vital Signs Temp 97.1 F 11/14/24 04:00 Pulse 88 11/14/24 04:00 Resp 16 11/14/24 04:00 BP 130/85 11/14/24 04:00 Pulse Ox 98 11/14/24 04:00 O2 Del Method Room Air 11/14/24 04:00 BMI result Body Mass Index 24.2 General: AOx3, no acute distress Resp: CTA bilaterally CVS: S1, S2, RRR GI: +BS, NT, soft with moderate distention; tympanic to percussion Skin: Warm, dry Neuro: Cranial nerves II-XII grossly intact bilaterally. Motor grossly intact bilaterally Extremities: No edema Psych: Appropriate affect Objective Data Active Medications Acetaminophen (Acetaminophen 325 Mg Tablet) 650 mg PO Q6H PRN PRN Reason: Pain, Mild 1-3,fever,headache Calcium Carbonate (Calcium Carbonate 750 Mg Tab.Chew) 750 mg PO Q4H PRN PRN Reason: Heartburn Last Admin: 11/13/24 17:10 Dose: 750 mg Documented By: JUSTICE Ceftriaxone Sodium (Ceftriaxone Sodium 1 Gm Vial) 1 gm IV Q24H [facility] Last Admin: 11/13/24 14:06 Dose: 1 gm Documented By: TALYA Enoxaparin Sodium (Enoxaparin Sodium 40 Mg/0.4 Ml Syringe) 40 mg SUBCUT Q24H [facility] Last Admin: 11/13/24 14:06 Dose: 40 mg Documented By: TALYA Folic Acid (Folic Acid 1 Mg Tablet) 1 mg PO DAILY [facility] Last Admin: 11/13/24 08:18 Dose: 1 mg Documented By: TALYA Furosemide (Furosemide 40 Mg Tablet) 40 mg PO DAILY [facility]; Protocol Last Admin: 11/13/24 09:51 Dose: 40 mg Documented By: TALYA Magnesium Hydroxide (Milk Of Magnesia 30 Ml Oral.Susp) 30 ml PO DAILY PRN PRN Reason: Constipation Melatonin (Melatonin 3 Mg Tablet) 6 mg PO BEDTIME PRN PRN Reason: Insomnia Multivitamins/Vitamin C (Multivitamin Tablet) 1 tab PO DAILY [facility] Last Admin: 11/13/24 08:18 Dose: 1 tab Documented By: TALYA Omeprazole (Omeprazole 40 Mg Capsule.Dr) 40 mg PO DAILY@0630 [facility] Last Admin: 11/14/24 06:22 Dose: 40 mg Documented By: LAI Ondansetron HCl (Ondansetron Hcl 4 Mg/2 Ml Vial) 4 mg IVPUSH Q8H PRN PRN Reason: Nausea and Vomiting Sodium Chloride (0.9 % Sodium Chloride Flush 3 Ml Syringe) 3 ml IVFLUSH QSHIFT [facility] Last Admin: 11/14/24 01:44 Dose: Not Given Documented By: LAI Non-Admin Reason: Patient Asleep Spironolactone (Spironolactone 25 Mg Tablet) 100 mg PO DAILY [facility]; Protocol Last Admin: 11/13/24 09:52 Dose: 100 mg Documented By: TALYA Thiamine HCl (Thiamine Hcl 100 Mg Tablet) 100 mg PO DAILY [facility] Last Admin: 11/13/24 08:18 Dose: 100 mg Documented By: TALYA Labs 11/14/24 07:18 11/14/24 07:18 Labs: Laboratory Results - last 24 hr 11/12/24 11/13/24 11/14/24 15:03 06:55 07:18 Hold Purple Top SEE NOTE Anion Gap 12 Estim Creat Clear Calc 155.0 Estimated GFR > 60 Random Glucose 101 Calcium 8.0 L D Total Bilirubin 2.6 H AST 65 H ALT 13 Alkaline Phosphatase 204 H Total Protein 6.3 L Albumin 2.6 L Hepatitis A IgM Ab Nonreactive Hep Bs Antigen Negative Hep Bs Antibody NONREACTIVE Hep B Core Total Ab Nonreactive Hepatitis C Ab (EIA) Nonreactive Microbiology Microbiology Results: Microbiology 11/12/24 11:33 Blood Culture - Preliminary Blood - Venous No growth after 24 hours. 11/12/24 11:32 Blood Culture - Preliminary Blood - Venous No growth after 24 hours. 11/12/24 16:18 Urine Culture - Preliminary Urine clean catch - Clean Catch Midstream No growth to date. Assessment and Plan (1) Abdominal ascites: Status: Acute Plan 59-year-old male who presented to the ED with ataxia and abdominal distention. Patient with no prior past medical history. Patient is status post paracentesis of 5 L fluid. Was admitted for further workup of ataxia and liver disease. Ascites/Elevated LFTs S/P thoracentesis of 5 L on 11/13/2024 Some reaccumulation of ascitic fluid Seen by GI, plan on repeat thoracentesis this afternoon Continue furosemide 40mg and spironolactone 100mg daily per GI Follow lytes Low salt diet, 2L fluid restriction Empiric ceftriaxone to cover SBP pending fluid studies Monitor I/O, daily weights Will need EGD and colonoscopy outpatient to complete workup Hyponatremia, mild Sodium slightly low at 133 Continue diuretics, follow sodium Acute lactic acidosis, resolved Lactic acid 2.9 at time of presentation, 2.0 after IVF Secondary to above, not sepsis Peritoneal fluid studies so far negative for SBP, continue to follow Empiric ceftriaxone for now pending full fluid studies Alcohol use disorder Last drink over one month ago No evidence of withdrawal, can discontinue CIWA scale Addiction medicine consult Ataxia Brain/Head MRI negative for acute stroke/nonhemorrhagic ischemia, showed likely 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 Quality Stroke Does the patient have a stroke diagnosis?: No VTE Prior VTE?: No VTE Risk Level:: Medical - moderate - high VTE Device Contraindication: Treatment Not Indicated VTE Drug Contraindication: N/A - Med Ordered
[2024-11-14 07:55] LABS: Alanine Aminotransferase 13 U/L (0-40); Albumin Level 2.7 g/dL (3.5-5.0); Alkaline Phosphatase 218 U/L (39-117); Anion Gap 11 (12-20); Aspartate Amino Transferase 68 U/L (5-37); Bilirubin Direct 1.6 mg/dL (0.0-0.5); Bilirubin Total 2.3 mg/dL (0.0-1.0); Blood Urea Nitrogen 5 mg/dL (9-16); Calcium 8.5 mg/dL (8.4-10.2); Carbon Dioxide 26 mmol/L (22-29); Chloride 100 mmol/L (96-108); Creatinine Clr Calc Pharmacy 140.2; Estimated Glomerular Filt Rate > 60; Glucose Random 122 mg/dL (60-115); Iron 50 mcg/dL (45-160); Magnesium 1.6 mg/dL (1.6-2.6); Percent Iron Saturation 35 % (15-50); Potassium 4.2 mmol/L (3.3-5.1); Sodium 133 mmol/L (135-145); Total Iron Binding Capacity 141 mcg/dL (228-428); Total Protein 6.7 g/dL (6.5-8.0); Unsaturated Iron Binding 91 ug/dL
--- NOTE | 2024-11-14 08:10 | P.PNGI_ITS ---
Subjective Subjective Date of Service: 11/14/24 Interval History: some reaccumulation of ascites fluid tolerating diuretics Critical Care Time (minutes): 0 Physical Exam 2 Vital Signs: Vital Signs: Last Vital Signs Temp 97.6 F 11/14/24 08:00 Pulse 94 11/14/24 08:00 Resp 18 11/14/24 08:00 BP 134/89 11/14/24 08:00 Pulse Ox 98 11/14/24 08:00 O2 Del Method Room Air 11/14/24 08:00 BMI result Body Mass Index 24.2 GI: Other: abdominal exam is nontender and positive for ascites extremitis are without edema Intake and output is not accurate Objective Data Labs 11/13/24 06:55 11/14/24 07:18 Labs: Laboratory Results - last 24 hr 11/12/24 11/14/24 15:03 07:18 Hold Purple Top SEE NOTE Sodium 133 L Potassium 4.2 Chloride 100 Carbon Dioxide 26 Anion Gap 11 L BUN 5 L Creatinine 0.63 Estim Creat Clear Calc 140.2 Estimated GFR > 60 Random Glucose 122 H Calcium 8.5 D Magnesium 1.6 Iron 50 TIBC 141 L % Saturation 35 Unsat Iron Binding 91 Total Bilirubin 2.3 H Direct Bilirubin 1.6 H AST 68 H ALT 13 Alkaline Phosphatase 218 H Total Protein 6.7 Albumin 2.7 L Hepatitis A IgM Ab Nonreactive Hep Bs Antigen Negative Hep Bs Antibody NONREACTIVE Hep B Core Total Ab Nonreactive Hepatitis C Ab (EIA) Nonreactive Microbiology Microbiology Results: Microbiology 11/12/24 11:33 Blood - Venous Blood Culture - Preliminary No growth after 24 hours. 11/12/24 11:32 Blood - Venous Blood Culture - Preliminary No growth after 24 hours. 11/12/24 16:18 Urine clean catch - Clean Catch Midstream Urine Culture - Preliminary No growth to date. Procedures Date of Service Date of Service: 11/14/24 Progress Note: A&P Assessment and plan (1) Abdominal ascites: Status: Acute Assessment and Plan: paracentesis is ordered continue diuretics needs accurate intake and output monitoring Time Spent With Patient Time: Total time managing care of this patient today ____ minutes. Quality Stroke Does the patient have a stroke diagnosis?: No VTE Prior VTE?: No VTE Risk Level:: Medical - moderate - high VTE Device Contraindication: Treatment Not Indicated VTE Drug Contraindication: N/A - Med Ordered
[2024-11-14 08:13] LABS: Ferritin 506 ng/mL (20-250)
[2024-11-14] MEDS: Folic Acid 1 MG TABLET PO (08:25)
[2024-11-14] MEDS: Furosemide 40 MG TABLET PO (08:25)
[2024-11-14] MEDS: Multivitamin TABLET 1 TAB PO (08:25)
[2024-11-14] MEDS: Thiamine HCL 100 MG TABLET PO (08:25)
[2024-11-14] MEDS: Spironolactone 25 MG TABLET 100 MG PO (08:26)
[2024-11-14] MEDS: 0.9 % Sodium Chloride Flush 3 ML SYRINGE IVFLUSH ×2 (08:27→15:19)
[2024-11-14 08:36] LABS: MANUAL DIFF FLAG NO
[2024-11-14 08:44] LABS: Basophils Absolute Auto 0.1 X10*3/uL (0.0-0.2); Basophils Percent Auto 0.6 % (0-2); Eosinophils Absolute Auto 0.2 X10*3/uL (0.0-0.4); Eosinophils Percent Auto 1.7 % (0-4); Hemoglobin 12.5 g/dl (14.0-18.0); Imm Gran Abs Auto 0.03 X10*3/uL (0.00-0.03); Imm Gran Pct Auto 0.3 % (0.0-0.4); Lymphocytes Absolute Auto 1.4 X10*3/uL (1.2-4.9); Lymphocytes Percent Auto 14.5 % (20-40); Mean Corpuscular HGB Conc 33.8 g/dl (31.0-36.0); Mean Corpuscular Hemoglobin 33.7 pg (27.0-33.0); Mean Corpuscular Volume 99.7 fL (80.0-98.0); Mean Platelet Volume 10.3 fL (9.4-12.4); Monocytes Absolute Auto 0.8 X10*3/uL (0.1-1.2); Monocytes Percent Auto 8.5 % (2-11); Neutrophils Absolute Auto 7.4 x10*3/uL (2.0-8.3); Neutrophils Percent Auto 74.4 % (45-73); Platelet Count 388 X10*3/uL (160-400); Red Blood Count 3.71 X10*6/uL (4.60-5.80); Red Cell Distribution Width 14.4 % (11.0-16.0); White Blood Count 9.9 X10*3/uL (4.8-10.8)
--- NOTE | 2024-11-14 10:35 | MHC.CM.PN ---
Per ROUNDS discussion, Patient is not yet medically cleared for dc (Paracentesis); home is the goal and CM will continue to follow.
[2024-11-14] MEDS: cefTRIAXone sodium 1 GM VIAL IV (15:18)
[2024-11-14] MEDS: Enoxaparin Sodium 40 MG/0.4 ML SYRINGE SUBCUT (15:19)
--- NOTE | 2024-11-14 18:19 | PM.EVENT ---
Event Note Date of Service: 11/14/24 Event Note: Addiction consult placed for patient with AUD Chart reviewed and patient seen by clinical education specialist Has been abstaining from alcohol for over a month Strong recovery supports Declines additional referrals related to AUD--focus is on health concerns in particular ascites. No follow up indicated at this time, please see clinical education specialist note for additional details Time Spent With Patient Time: Total time managing care of this patient today ____ minutes.
[2024-11-15 03:21] VITALS: BP 130/81; PULSE 91; RESP 16; TEMP 37.1; O2SAT 96
[2024-11-15] MEDS: Omeprazole 40 MG CAPSULE.DR PO (04:42)
[2024-11-15 06:00] VITALS: BMI 24.0
[2024-11-15 07:23] LABS: Anion Gap 11 (12-20); Blood Urea Nitrogen 6 mg/dL (9-16); Calcium 8.5 mg/dL (8.4-10.2); Carbon Dioxide 26 mmol/L (22-29); Chloride 100 mmol/L (96-108); Estimated Glomerular Filt Rate > 60; Glucose Random 126 mg/dL (60-115); Potassium 3.4 mmol/L (3.3-5.1); Sodium 134 mmol/L (135-145)
[2024-11-15 07:40] VITALS: BP 129/86; PULSE 90; RESP 20; TEMP 37.1; O2SAT 97
[2024-11-15] MEDS: Multivitamin TABLET 1 TAB PO (10:06)
[2024-11-15] MEDS: Folic Acid 1 MG TABLET PO (10:06)
[2024-11-15] MEDS: Spironolactone 25 MG TABLET 100 MG PO (10:06)
[2024-11-15] MEDS: Furosemide 40 MG TABLET PO (10:06)
[2024-11-15] MEDS: 0.9 % Sodium Chloride Flush 3 ML SYRINGE IVFLUSH ×2 (10:08)
[2024-11-15] MEDS: Thiamine HCL 100 MG TABLET PO (10:08)
[2024-11-15 11:21] VITALS: BP 124/82; PULSE 109; RESP 20; TEMP 36.8; O2SAT 98
--- NOTE | 2024-11-15 11:38 | PM.DS ---
DS: Providers Provider Date of Service: 11/15/24 Date of admission: 11/12/24 13:11 Date of discharge: 11/15/24 Primary care physician: None Physician Consults: 11/12/24 14:07 Consult to Gastroenterology Routine Consulting Provider: Ayo Carter Reason for consultation: Ascites Consult to Neurology Routine Consulting Provider: [facility] Reason for consultation: Ataxia 11/13/24 17:54 Addiction Medicine Provider Routine Consulting Provider: Addiction Covering Reason for consultation: Alcohol use disorder, stopped 37 days ago 11/14/24 09:29 Inpt - Recovery Team Routine Comment: Reason for consultation: BH/ROSA eval DS: Diagnosis Discharge Diagnosis (1) Abdominal ascites: Status: Resolved DS: Summary Status at Discharge Cognitive/behavioral status at discharge: From admission HPI: 59-year-old male with a past medical history of ETOH abuse who reports he stopped drinking 36 days ago presented to emergency department with abdominal distention, bilateral leg numbness and tingling for about 3 weeks. Patient reports drinking about 8 mix vodka drinks a day for several years. Patient reports he stopped drinking alcohol 36 days ago and self detoxed. He experienced GI symptoms per his report, denies any history of seizure activity. He reports difficulty with ambulation and experienced a fall about three weeks go when he fell on the back of his head. He reports he has not seen a doctor in several years, has no other significant medical history and takes no medications. On exam, he denies any fevers, chills, chest pain, shortness of breath, nausea, vomiting or diarrhea. Reports that he feels better since the Doctor removed the fluid. In the ED a paracentesis was performed with 5L of clear straw colored fluid removed. Fluid sent for analysis. Patient with leukocytosis at 13.2, H&H revealing a microcytic anemia, H&H 13/37.8, hypokalemia at 3.1, no evidence of SAMSON, random glucose 134, T bili 2.9, direct bili 2.0, AST elevated at 77, alk phos elevated at 242. Head CT negative for any acute intracranial hemorrhage. Multifocal old lacunar infarcts present likely related to small-vessel occlusive disease. Patient will be admitted for further workup for ataxia. Hospital course: Pt was admitted to the hospital for ataxia and new onset abdominal ascites. Pt received therapeutic and diagnostic paracentesis in the ED. Was initially treated with empiric ceftriaxone for SBP, though was eventually stopped as pt remained afebrile and peritoneal studies negative. Pt was seen and evaluated by GI and started on both oral furosemide and spironolactone, and encouraged to adhere to a low-salt diet and 1.5-2.0 L fluid restriction. Throughout hospital stay pt remained hemodynamically stable and labs without significant electrolyte abnormalities or decreased renal function. Had additional abdominal ultrasound for possible reaccumulation of ascitic fluid, though U/S was negative for drainable fluid collection. Was also seen and evaluated by PT/OT. Pt with good family support at home, PT/OT recommended home with ambulation with wheeled walker and using a shower chair. Pt should follow up with GI in 2 weeks for repeat labs and monitoring of response to new therapies. Should take weights daily and contact GI if notices 2-3lb weight gain in less than a week's time. For alcohol use disorder, was seen and evaluated by addiction medicine but pt declined outside services stating had good social support system. Time Attestation Discharge Coordination Time (in mins): 38 Quality: Safe Use of Opioids Does Pt have an Active Cancer Diagnosis on the Problem List?: No Quality: Stroke Does the patient have a stroke diagnosis?: No Physical Exam Vital Signs: Vital Signs: Last Vital Signs Temp 98.3 F 11/15/24 11:21 Pulse 109 H 11/15/24 11:21 Resp 20 11/15/24 11:21 BP 124/82 11/15/24 11:21 Pulse Ox 98 11/15/24 11:21 O2 Del Method Room Air 11/15/24 11:21 BMI result Body Mass Index 24.0 General: AOx3, no acute distress Resp: CTA bilaterally CVS: S1, S2, RRR GI: +BS, soft with mild distention, non-tender Skin: Warm, dry Neuro: Cranial nerves II-XII grossly intact bilaterally. Motor grossly intact bilaterally Extremities: No edema Psych: Appropriate affect DS: Data Data Completed and Pending Labs on day of discharge: Laboratory Results - last 24 hr 11/15/24 06:28 Hold Purple Top SEE NOTE Sodium 134 L Potassium 3.4 Chloride 100 Carbon Dioxide 26 Anion Gap 11 L BUN 6 L Creatinine 0.57 Estim Creat Clear Calc 155.0 Estimated GFR > 60 Random Glucose 126 H Calcium 8.5 Preliminary micro results at discharge 11/12/24 11:33 Blood Culture - Preliminary Blood - Venous No growth after 48 hours. 11/12/24 11:32 Blood Culture - Preliminary Blood - Venous No growth after 48 hours. Discharge Plan Discharge Anticipated Discharge Date/Time: 11/15/24 11:28 Patient Disposition: Home, Self-Care Discharge Diagnosis: Abdominal ascites Referrals: Physician,None [Primary Care Provider, Medical] - 1 Week Discharge Medications: New furosemide 40 mg tablet 40 mg PO DAILY Qty: 90 0RF Rx Instructions: Take one tablet daily to help prevent abdominal ascites spironolactone 100 mg tablet 100 mg PO DAILY Qty: 90 0RF Rx Instructions: Take one tablet daily to help prevent abdominal ascites folic acid 1 mg tablet 1 mg PO DAILY Qty: 90 0RF Rx Instructions: Take one tablet daily Discharge Orders: Discharge Order (Routine); Ordered 11/15/24 Ordered By: Bradley Richards Activity on Discharge: As tolerated Stand Alone Forms: Patient Portal Discharge page Print Language: Beninese Care Plan Goals: See below Health Concerns: Build up of abdominal ascites Plan of Treatment: Take furosemide 40 mg daily and spironolactone 100 mg daily for abdominal ascites Take multivitamin and folic acid daily Check weight daily. If notice a 2-3 lb weight gain in 1 week's time, contact GI to arrange for possible outpatient paracentesis Adhere to a low-salt diet, 1.5-2.0L fluid restriction daily Follow up outpatient with GI in 1-2 weeks Use wheeled walker for ambulation, shower chair at home Continue to abstain from alcohol Assessment: See discharge summary. Discharge Date/Time: 11/15/24 14:09
--- NOTE | 2024-11-15 11:59 | MHC.CM.PN ---
Pt has been medically cleared to [place], he will go home, no services because he does not have a PCP. Family to transport home.
[2024-11-18 07:51] LABS: Albumin Peritoneal Fluid 0.9; Total Protein Peritoneal Fluid 1.7
[2024-11-18 07:52] LABS: LDH Peritoneal Fluid 53
[2024-11-18 07:53] LABS: Amylase Peritoneal Fluid 19
[2024-11-18 11:20] LABS: Mitochondrial Antibodies NEGATIVE (NEGATIVE)
[2024-11-18 17:23] LABS: Vitamin D 25-OH, D2 <4 ng/mL; Vitamin D 25-OH, D3 4 ng/mL; Vitamin D 25-OH, Total 4 ng/mL (30-100)
[2024-11-19 00:13] LABS: Smooth Muscle Antibody <20 U (<20)
[2024-11-19 14:14] LABS: Anti Nuclear Antibody Pattern Nuclear, Speckled; Anti Nuclear Antibody Screen POSITIVE (NEGATIVE)
[2024-11-25 16:54] LABS: FIB-ALT 14 U/L (9-46); FIB-Alpha-2-Macroglobulin 195 mg/dL (106-279); FIB-Apolipoprotein A1 74 mg/dL (94-176); FIB-GGT 303 U/L (3-85); FIB-Haptoglobin 155 mg/dL (43-212); FIB-Total Bilirubin 2.3 mg/dL (0.2-1.2); Liver Fibrosis Score 0.86; Liver Fibrosis Stage F4; Nec Inflam Act Grade A0
--- NOTE | 2024-11-28 08:14 | P.CDIM_ITS ---
PROVIDER RESPONSE TEXT: To clarify, the appropriate diagnosis supported by the clinical indicators: Alcoholic liver disease with Ascites was present on admission QUERY TEXT: PHYSICIAN'S DOCUMENTATION REQUEST Date of Query: 11/27/2024 11:26 AM EDT Patient Name: Mickey Jacobo Admit Date: 11/12/2024 Dear Bradley BOWLING, RETROSPECTIVE QUERY A review of the medical record indicates additional documentation may be needed. Please review below and update the documentation accordingly. Clinical Indicators: ED dated 11/12/24 - Lactic acidosis noted at 2.9, patient has significant liver disease, likely source. Paracentesis performed, 5 L peritoneal fluid drained off of abdomen/Ascites. ETOH abuse discontinued 3 weeks ago, abdominal distention, states he stopped drinking and has developed a very distended abdomen. GI consultation 11/13/24 - Ascites with alcoholic liver disease, improving after paracentesis. Start Furosemide 40 mg daily and Spironolactone 100 mg daily and monitor his electrolytes. Discharge summary 11/14/24 - Abdominal ascites Evaluated by addiction medicine. Consistency and clarity of a diagnosis that was documented within the medical record: Alcoholic liver disease with Ascites was present on admission Alcoholic liver disease with Ascites was not present on admission Other (explain) Clinically unable to determine (explain) Thank you, Mikayla Kent, CCS, CDIS Use of terms such as suspected, likely, concern for, or probable (associated with a specific diagnosis that is being evaluated, monitored, or treated as if it exists) are acceptable and can be coded in the inpatient setting, when documented at the time of discharge. Please use your independent medical judgment in providing your response. THIS QUERY IS PART OF THE PERMANENT MEDICAL RECORD
== END 2024-11-15 14:09 | disposition home or self-care (01) | DRG 433 ==
LOC: HO.ED 10:08 → HO.EDOVER 13:30 → HO.IMC 15:33
PROVIDERS: Internal Medicine Gastroenterology; Nurse Practitioner Family; Physician Assistant Medical; Admitting Provider Hospitalist; Emergency Provider Emergency Medicine; Visit Provider Student in an Organized Health Care Education/Training Program
DX: K70.9 Alcoholic liver disease, unspecified (principal); E87.1 Hypo-osmolality and hyponatremia; E87.21 Acute metabolic acidosis; R18.8 Other ascites; G62.1 Alcoholic polyneuropathy; F10.11 Alcohol abuse, in remission; K21.9 Gastro-esophageal reflux disease without esophagitis
CPT/HCPCS: 36415; 70450; 70551; 76705; 80048; 80053; 80076; 81001; 81003; 81596; 82042; 82140; 82150; 82306; 82607; 82728; 82746; 83540; 83605; 83615; 83690; 83735; 83880; 84157; 84425; 84484; 85025; 85610; 86015; 86038; 86039; 86381; 86704; 86706; 86709; 86803; 87040; 87086; 87340; 89051; 93005; 95816; 97162; 97165; 99285; J0696; J1650; J2003; S9485

== ENCOUNTER → 2024-11-12 08:58 | Outpatient (BNV) | payer OTHER, SELFPAY | PROVIDERS: Admitting Provider Hospitalist; Emergency Provider Emergency Medicine; Visit Provider Internal Medicine Cardiovascular Disease | DX: R00.0 Tachycardia, unspecified (principal) | CPT/HCPCS: 93010 ==

== ENCOUNTER → 2024-11-12 10:05 | Outpatient (BNV) | payer OTHER, SELFPAY | PROVIDERS: Admitting Provider Hospitalist; Emergency Provider Emergency Medicine; Visit Provider Radiology Diagnostic Radiology | DX: R27.0 Ataxia, unspecified (principal) | CPT/HCPCS: 70551 ==

== ENCOUNTER 2024-11-12 13:11 | Outpatient (BNV) | payer OTHER, SELFPAY | END 2024-11-14 10:12 | PROVIDERS: Admitting Provider Hospitalist; Emergency Provider Emergency Medicine; Visit Provider Radiology Diagnostic Radiology | DX: R18.8 Other ascites (principal) | CPT/HCPCS: 76705 ==

== ENCOUNTER → 2024-11-12 13:11 | Outpatient (BNV) | payer OTHER, SELFPAY | PROVIDERS: Admitting Provider Hospitalist; Emergency Provider Emergency Medicine; Visit Provider Nurse Practitioner Family | DX: R18.8 Other ascites (principal); R27.0 Ataxia, unspecified | CPT/HCPCS: 99222; 99232 ==

== ENCOUNTER → 2024-11-12 13:11 | Outpatient (BNV) | payer OTHER, SELFPAY | PROVIDERS: Admitting Provider Hospitalist; Emergency Provider Emergency Medicine; Visit Provider Psychiatry & Neurology Neurology | DX: G62.1 Alcoholic polyneuropathy (principal) | CPT/HCPCS: 99222 ==

== ENCOUNTER 2024-12-22 07:48 | Emergency (ER) | payer OTHER, SELFPAY ==
--- NOTE | ~2024-12-22 | US_ITS ---
EXAMINATION: US TRIPLEX LOWER EXTREMITY, BILATERAL CLINICAL INFORMATION: Approximately pain COMPARISON: None available. TECHNIQUE: Color-flow triplex imaging with spectral analysis and compression Doppler were performed on the bilateral lower extremities. FINDINGS: Respiratory variation, normal compression and augmented flow are noted throughout the bilateral lower extremities. The visualized common femoral vein, superficial femoral vein, profunda femoral vein, popliteal vein and midcalf peroneal and posterior tibial venous segments show no evidence of deep venous thrombosis bilaterally. US/US venous duplex LE BI IMPRESSION: No evidence of deep venous thrombosis involving the bilateral lower extremities. Electronically signed by: Gatito Joe MD 12/22/2024 11:38 AM EDT
[2024-12-22 07:50] VITALS: BP 148/90; PULSE 100; RESP 18; TEMP 36.6; O2SAT 100; BMI 22.8
[2024-12-22 08:05] LABS: MANUAL DIFF FLAG NO
[2024-12-22 08:06] LABS: Hematocrit 36.4 % (42.0-52.0); Hemoglobin 12.5 g/dl (14.0-18.0); Imm Gran Abs Auto 0.03 X10*3/uL (0.00-0.03); Imm Gran Pct Auto 0.4 % (0.0-0.4); Lymphocytes Absolute Auto 1.3 X10*3/uL (1.2-4.9); Mean Corpuscular HGB Conc 34.3 g/dl (31.0-36.0); Mean Corpuscular Hemoglobin 32.2 pg (27.0-33.0); Mean Corpuscular Volume 93.8 fL (80.0-98.0); NRBC Abs Auto 0.000 X10*3/uL (0.0-0.012); NRBC Pct Auto 0.0 /100WBC (0.0-0.2); Platelet Count 274 X10*3/uL (160-400); Red Blood Count 3.88 X10*6/uL (4.60-5.80); White Blood Count 6.9 X10*3/uL (4.8-10.8)
[2024-12-22 08:35] LABS: Alanine Aminotransferase 12 U/L (0-40); Albumin Level 3.7 g/dL (3.5-5.0); Alkaline Phosphatase 216 U/L (39-117); Anion Gap 12 (12-20); Aspartate Amino Transferase 32 U/L (5-37); Blood Urea Nitrogen 16 mg/dL (9-16); Calcium 9.6 mg/dL (8.4-10.2); Carbon Dioxide 22 mmol/L (22-29); Chloride 108 mmol/L (96-108); Creatinine Clr Calc Pharmacy 103.3; Estimated Glomerular Filt Rate > 60; Potassium 3.7 mmol/L (3.3-5.1); Sodium 138 mmol/L (135-145); Total Protein 7.4 g/dL (6.5-8.0)
[2024-12-22 09:53] VITALS: BP 146/95; PULSE 98; RESP 18; TEMP 37; O2SAT 100
--- NOTE | 2024-12-22 09:56 | PC.NURSE ---
Pt reporting he has not been able to follow up with providers since last ED visit. Pt reporting increased burning pain in his bilat feet. Abd mild distention, firm to touch, denies pain in abd at this time. Reporting normal BM/GI symptoms. PA at bedside at this time to discuss plan of care for pt. Pt placed on monitor, vitals obtained at this time.
--- NOTE | 2024-12-22 11:58 | ED_ITS ---
HPI - General Adult General Chief complaint: General Medical Stated complaint: pain all over Time Seen by Provider: 12/22/24 09:07 Source: patient, RN notes reviewed and old records reviewed Mode of arrival: ambulatory Limitations: no limitations History of Present Illness ED Provider: Ramakrishna SHEFFIELD narrative: 59-year-old male with past medical history significant for alcohol abuse, in remission for the last 75 days, recent admission for ascites presents for evaluation of bilateral leg pain. Patient reports that he has pain from his feet up to his groin on both sides. He has had this pain for over a month He reports that he initially took some type of arthritis pain medication which did not help so he stopped taking this. Denies any swelling in his legs or his abdomen. He was supposed to follow up with GI as it was initially thought that his ascites was due to alcoholic liver disease. However he spoke to JACKELYN Tesfaye who felt due to positive JESSICA and serology testing with the patient's ascites was actually due to an autoimmune disease instead. 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 He denies any recent falls Related Data Previous Rx's ?Medication ?Instructions ?Recorded folic acid 1 mg tablet 1 mg PO DAILY #90 tabs 11/15 furosemide 40 mg tablet 40 mg PO DAILY #90 tabs 10/27 06/21 spironolactone 100 mg tablet 100 mg PO DAILY #90 tabs 11/15/24 prednisone 20 mg tablet 40 mg (2 x 20 mg) PO DAILY # 10 tabs 12/22/24 Allergies Allergy/AdvReac Type Severity Reaction Status Date / Time No Known Allergies Allergy Verified 12/22/24 07:52 Review of Systems 2 Constitutional: Constitutional: Denies body ache(s), Denies chills, Denies fatigue, Denies headache(s) and Reports weakness Eyes: Eyes: Denies blurry vision and Denies irritation ENT: Denies vertigo, Denies dizziness and Denies headache(s) Cardiovascular: Cardiovascular: Denies chest pain and Denies dyspnea on exertion Respiratory: Respiratory: Denies cough and Denies dyspnea on exertion Gastrointestinal: Gastrointestinal: Denies abdominal pain, Denies nausea and Denies vomiting Musculoskeletal: Musculoskeletal: Reports arthralgias, Denies joint swelling, Denies limited range of motion, Reports numbness, Reports radiating pain into limb and Reports tingling Integumentary/Breasts: Skin/Breast: Denies rash Neurologic: Denies vertigo, Denies dizziness, Denies headache(s), Reports numbness, Reports tingling and Reports weakness Psychiatric: Psychiatric: Denies anxiety Endocrine: Endocrine: Denies fatigue PMFSH Past Medical History Medical History (Updated 12/22/24 @ 12:07 by Soto Durbin) Peripheral neuropathy Social History Social History Household Members: Spouse and Children Housing: House Do you presently have visiting nurse or other home services: No Alcohol intake: former Patient Tobacco Use Status: Never used Tobacco Smoked in Last 30 Days: No Use of substances other than those prescribed or required for medical reasons: No Advance Directives: No Advance Directives Information Provided: Yes service: No Physical Exam ED Vital Signs: Vital Signs - 24 hr 12/22/24 07:50 12/22/24 09:53 Temperature 98 F 98.6 F Pulse Rate 100 98 Respiratory Rate 18 18 Blood Pressure 148/90 H 146/95 H Pulse Oximetry 100 100 Oxygen Delivery Method Room Air Room Air BMI result Body Mass Index 22.8 Const General: healthy appearing, comfortable, no acute distress, alert and awake Nutritional Appearance: well nourished Orientation/consciousness: patient oriented x3 HENMT Head: Yes normocephalic and Yes atraumatic Eyes Eyelids: Yes eyelids normal Conjunctivae: conjunctivae normal Sclerae: sclerae normal Corneas: corneas normal Pupils: Equal, round and reactive pupils present EOM: EOMs intact bilaterally Neck Neck: Yes full ROM Resp Effort & Inspection: normal respiratory effort, able to speak in complete sentences and not labored GI Inspection: Yes distended (Mildly distended) Palpation (GI): Soft to palpation, not firm, nontender, no guarding and not rigid Skin General skin exam: elasticity normal Neuro General: patient oriented x3 Cranial nerves: Yes Equal, round and reactive pupils present and Yes Bilaterally intact EOM present Cognition (Neuro): normal cognition Extrem Other: Moving all extremities well without any obvious deformities Medical Decision Making Medical Decision Making MDM Narrative: 59-year-old male presents for evaluation of leg pain, swelling, numbness and tingling. He was recently admitted for ascites which was favored to be related to alcoholic liver disease, however given that his ultrasound did not mentioned cirrhosis in his exams were actually fairly normal in addition with his positive JESSICA in his felt in his ascites may have been related to an autoimmune disorder instead. He has been not follow up with Rheumatology yet. Ultrasound was ordered which rules out DVT, his labs show no concerning abnormalities warranting intervention. We will try to have the patient see manager social responsibility due to his lack of follow up care and I can refer the patient to Rheumatology. There was no evidence of infectious process to his legs, no leg swelling, he has good pulses. He does have a mildly distended abdomen but he improved from his baseline and he has no abdominal pain or tenderness. Less likely SBP Differential Diagnosis Differential Diagnoses: The differential diagnosis associated with the presentation includes Ascites CHF Systemic lupus Autoimmune hepatitis Lab Data MDM Lab Attestation statement: I reviewed the patient's lab results. No leukocytosis. The patient has a mild anemia of unclear significance. Normal platelet count. No significant electrolyte abnormalities warranting intervention. Random glucose elevated to 175. 12/22/24 07:59 12/22/24 07:59 Labs: Lab Results 12/22/24 12/22/24 Range/Units 07:59 12:39 WBC 6.9 (4.8-10.8) X10*3/uL RBC 3.88 L (4.60-5.80) X10*6/uL Hgb 12.5 L (14.0-18.0) g/dl Hct 36.4 L (42.0-52.0) % MCV 93.8 (80.0-98.0) fL MCH 32.2 (27.0-33.0) pg MCHC 34.3 (31.0-36.0) g/dl RDW 13.6 (11.0-16.0) % Plt Count 274 D (160-400) X10*3/uL MPV 9.8 (9.4-12.4) fL Immature Gran % (Auto) 0.4 (0.0-0.4) % Neut % (Auto) 66.7 (45-73) % Lymph % (Auto) 18.4 L (20-40) % [place] % (Auto) 8.5 (2-11) % Eos % (Auto) 5.0 H (0-4) % Baso % (Auto) 1.0 (0-2) % Lymph # (Auto) 1.3 (1.2-4.9) X10*3/uL [place] # (Auto) 0.6 (0.1-1.2) X10*3/uL Eos # (Auto) 0.3 (0.0-0.4) X10*3/uL Baso # (Auto) 0.1 (0.0-0.2) X10*3/uL Abs Immat Gran (auto) 0.03 (0.00-0.03) X10*3/uL Absolute Neuts (auto) 4.6 (2.0-8.3) x10*3/uL Absolute Nucleated RBC 0.000 (0.0-0.012) X10*3/uL Nucleated RBC % (auto) 0.0 (0.0-0.2) /100WBC Sodium 138 (135-145) mmol/L Potassium 3.7 (3.3-5.1) mmol/L Chloride 108 (96-108) mmol/L Carbon Dioxide 22 (22-29) mmol/L Anion Gap 12 (12-20) BUN 16 (9-16) mg/dL Creatinine 0.84 (0.5-1.4) mg/dL Estim Creat Clear Calc 103.3 Estimated GFR > 60 Random Glucose 175 H (60-115) mg/dL Calcium 9.6 D (8.4-10.2) mg/dL Total Bilirubin 0.9 (0.0-1.0) mg/dL Direct Bilirubin 0.5 (0.0-0.5) mg/dL AST 32 (5-37) U/L ALT 12 (0-40) U/L Alkaline Phosphatase 216 H (39-117) U/L Total Creatine Kinase 16 L (38-174) U/L Total Protein 7.4 (6.5-8.0) g/dL Albumin 3.7 (3.5-5.0) g/dL Urine Color Dark Yellow Urine Appearance Clear Urine pH 5.0 (5.0-9.0) Ur Specific [place] 1.020 (1.005-1.025) Urine Protein Negative (Neg-Trace) mg/dL Urine Glucose (UA) Negative (Negative) mg/dL Urine Ketones Trace (Negative) mg/dL Urine Blood Negative (Negative) Urine Nitrite Negative (Negative) Ur Leukocyte Esterase Negative (Negative) Urine RBC 0-2 (0-2) /HPF Urine WBC 0-5 (0-5) /HPF Ur Squamous Epith Cells 0-2 (0-2) /HPF Urine Bacteria None Seen (None Seen) Hyaline Casts 0-2 (0-2) /LPF Radiology Impression Discussion of test interpretation with radiology: I have reviewed the radiologist's reading. Radiologist Impression: FINDINGS: Respiratory variation, normal compression and augmented flow are noted throughout the bilateral lower extremities. The visualized common femoral vein, superficial femoral vein, profunda femoral vein, popliteal vein and midcalf peroneal and posterior tibial venous segments show no evidence of deep venous thrombosis bilaterally. US/US venous duplex LE BI IMPRESSION: No evidence of deep venous thrombosis involving the bilateral lower extremities. Electronically signed by: Gatito Joe MD 12/22/2024 11:38 AM EDT RP Discharge Plan Discharge Clinical Impression: Leg pain, bilateral Patient Disposition: Home, Self-Care Instructions: Leg Pain (ED) Additional Instructions: Your workup in the ER today was reassuring. I reviewed your labs from her last admission and you did have some positive findings that suggest your recent admission was due to an autoimmune disorder Take prednisone 40 mg daily for the next 5 days. I recommend that you follow up with Rheumatology I also put a referral in to Neurology given your ataxic or unsteady gait Follow-up with your primary doctor, return for new or worsening symptom Prescriptions: New prednisone 20 mg tablet 40 mg PO DAILY Qty: 10 0RF No Action furosemide 40 mg tablet 40 mg PO DAILY Qty: 90 0RF Rx Instructions: Take one tablet daily to help prevent abdominal ascites spironolactone 100 mg tablet 100 mg PO DAILY Qty: 90 0RF Rx Instructions: Take one tablet daily to help prevent abdominal ascites folic acid 1 mg tablet 1 mg PO DAILY Qty: 90 0RF Rx Instructions: Take one tablet daily [place]: [facility] [Provider Group, Rheumatology] Referral Note: +JESSICA needs workup Misa Woody MD [Physician, Neurology] Referral Note: ataxia Print Language: Argentine
--- NOTE | 2024-12-22 12:39 | MHC.CM.ED ---
Addendum entered by Sherlyn Joiner 12/22/24 13:36: [facility] office does not accept [facility]. Attempted to get appointment with [facility]ma [facility]'s office. They only accept [facility]. Patient has [facility]. List of providers from [facility] that are accepting new patients provided to patient and brother. Explained patient should call office to verify they are accepting new patients and then call [facility] to list provider as PCP before scheduling an appointment. Patient and Musa verbalize understanding. Will be d/c'd. Nikko BOWLING aware. Original Note: Received case management consult from Nikko BOWLING. Patient was d/c'd from [facility] on 11/14/2024. Patient did not have a PCP. Has not been able to find PCP appointment before February. Met with patient and brother, Musa, in regards to discharge planning. Patient states [facility] is no longer active. But has [facility]: [phone]. Patient attempted to call [facility]. No new patient appointments until May. Dr Marte's office in [place] is accepting new patients sooner than that. Attempted to call to schedule new PCP appointment with patient's permission. Office at lunch until 1pm. Will call again after 1pm. Continue to monitor for d/c needs.
[2024-12-22 12:45] LABS: Appearance Urine Clear; Glucose Urine UA Negative (Negative); PH 5.0 (5.0-9.0); Specific Gravity - Urine 1.020 (1.005-1.025)
[2024-12-22 14:27] VITALS: BP 141/96; PULSE 101; RESP 18; TEMP 36.4; O2SAT 100
== END 2024-12-22 14:28 | disposition home or self-care (01) ==
PROVIDERS: Physician Assistant; Emergency Provider Emergency Medicine
DX: M79.605 Pain in left leg (principal); M79.604 Pain in right leg; K74.60 Unspecified cirrhosis of liver; R18.8 Other ascites; Z79.899 Other long term (current) drug therapy
CPT/HCPCS: 36415; 80048; 80076; 81001; 82550; 85025; 93970; 99284

== ENCOUNTER → 2024-12-22 10:34 | Outpatient (BNV) | payer OTHER, SELFPAY | PROVIDERS: Visit Provider Radiology Diagnostic Radiology | DX: M79.604 Pain in right leg (principal); M79.605 Pain in left leg | CPT/HCPCS: 93970 ==

== ENCOUNTER 2025-01-21 09:08 | Inpatient (IN) | payer OTHER, SELFPAY ==
[2025-01-21] VITALS (7 sets, daily range): BP systolic 97–133; BP diastolic 62–84; PULSE 77–100; RESP 16–18; TEMP 36.2–36.9; O2SAT 95–100; BMI 10.1
--- NOTE | ~2025-01-21 | CT_ITS ---
EXAMINATION: CT CHEST WITH IV CONTRAST INDICATION: cough, weight loss abnormal labs, cough > 8 weeks COMPARISON: There are no prior studies available for comparison. TECHNIQUE: Helical CT scan of the chest was performed following administration of intravenous contrast. Coronal and sagittal reformatted images were generated and reviewed. This CT exam was performed with one or more of the following dose reduction techniques: automated exposure control, adjustment of the mA and/or kV according to patient size, use of iterative reconstruction technique. DLP: 185 mGy-cm CHEST: Due to an IV infiltration, no intravenous contrast is present on the images. THYROID: The thyroid is unremarkable. LUNGS: There is a 3 mm nodule in the right lower lobe (series 6, image 79), and a 2 mm nodule in the left upper lobe (series 6, image 50). The lungs are otherwise clear. There are no airspace opacities. MEDIASTINUM: There is no mediastinal lymphadenopathy. MART: There is no hilar lymphadenopathy. CARDIOVASCULATURE: The heart is normal in size. There is no pericardial effusion. The thoracic aorta is normal in caliber. DEGREE OF CORONARY CALCIFICATION: none PLEURA: There is no pleural effusion. No pneumothorax. MAIN AIRWAYS: The mainstem bronchi and proximal branches are patent. AXILLA: There is no axillary lymphadenopathy. BONES AND SOFT TISSUES: Unremarkable UPPER ABDOMEN: There is a large amount of ascites in the upper abdomen. The liver and spleen appear enlarged, but are incompletely imaged. CT/CT chest w IV con IMPRESSION: 1. Tiny right lower lobe and left upper lobe pulmonary nodules. Otherwise unremarkable CT of the chest. Please see Fleischner Society guidelines below. 2. Large amount of ascites in the upper abdomen. Probable hepatosplenomegaly. Please see CT of the abdomen and pelvis report dictated separately. Fleischner Criteria for pulmonary nodule follow-up SOLID NODULES: Low risk patient: <6mm: no follow-up 6-8mm: 6 month follow-up CT >8mm: PET/Biopsy/ 3 month follow-up CT High risk patient: <6mm: 12 month follow-up CT 6-8mm: 6 month follow-up CT >8mm: PET/Biopsy/ 3 month follow-up CT SUB-SOLID/GROUNDGLASS NODULES: All patients: > or = 6mm: 6 month follow-up CT *Please note that in patients in the following categories, the Fleischner criteria do not apply: Immunocompromised, lung cancer screening population, age below 35, and patients with known malignancy Electronically signed by: Ayo Mejia MD 01/21/2025 03:30 PM EDT
--- NOTE | ~2025-01-21 | US_ITS ---
Ultrasound paracentesis History: Ascites. Risks and benefits and possible complications were discussed with the patient and consent form was signed. A safe pocket of ascitic fluid was identified using ultrasound guidance, and the overlying skin was marked. The abdomen prepped and draped in sterile fashion. 1% lidocaine was used as a local anesthetic. Using ultrasound guidance, a 5 fr catheter was placed into the ascitic pocket. 3.25 liters of yellow fluid was removed passively. The catheter was then removed. A few aircraft sales representative images from before and after the examination were obtained. The procedure was performed by Shawn Crawford NP and supervised by Musa Walter M.D.. US/US paracentesis abd w/image Impression: Ultrasound-guided paracentesis as described above. No immediate complications Electronically signed by: Musa Walter MD 01/22/2025 02:41 PM EDT
--- NOTE | ~2025-01-21 | CT_ITS ---
EXAMINATION: CT ABDOMEN AND PELVIS WITH CONTRAST CLINICAL INFORMATION: Weight loss. Abnormal liver function tests. COMPARISON: Correlated to ultrasound dated November 14, 2024. TECHNIQUE: Multidetector volumetric images were obtained from the superior aspect of the liver through the pubic symphysis following administration 85 mL of Omnipaque 350 intravenous contrast. Sagittal and coronal reformatted images were obtained on the technologist's workstation. Oral contrast: No This CT examination was performed using dose optimization techniques as appropriate, variously including the following: *Automated exposure control *Adjustment of mA and/or kV according to patient size (this includes techniques or standardized protocols for targeted exams where dose is matched to indication/reason for exam; i.e. extremities or head) *Use of iterative reconstruction technique 551.67 mGy centimeter. FINDINGS: LUNG BASES: No acute airspace disease or gross pulmonary nodule. LIVER, GALLBLADDER, AND BILIARY TREE: Liver measures 20 cm. Nodular surface. Heterogeneous enhancement. No enhancing lesion. The portal venous phase. Contracted gallbladder. No intrahepatic or extrahepatic biliary ductal dilatation. PANCREAS: No focal mass. No peripancreatic fluid collections. No main pancreatic ductal dilatation. SPLEEN: 13 cm. No focal lesion. ADRENAL GLANDS: No nodular lesions. KIDNEYS AND URETERS: No gross renal mass. No hydronephrosis. No gross nephrolithiasis. Small less than 1 cm cystic lesions both kidneys. BLADDER: Fluid-filled nearly collapsed. GASTROINTESTINAL TRACT: No air-fluid levels. There is mild interstitial wall thickening/edema in the proximal small bowel loops. No pneumatosis intestinalis. Terminal ileum is normal. Appendix is normal. Ascites, moderate volume. No peripheral enhancing fluid collection in the peritoneal cavity. No pneumoperitoneum. ABDOMINAL WALL: Small umbilical hernia containing fluid and fat. LYMPH NODES: Nonspecific prominent mesenteric and retroperitoneum. VASCULAR: Prominent patent umbilical vein. No aneurysm or dissection abdominal aorta. No gross splenorenal shunting. PELVIC VISCERA: Probable prostatectomy. OSSEOUS STRUCTURES: Multilevel thoracolumbar spondylosis pronounced at L5-S1 resulting in central spinal canal and likely bilateral neuroforamina stenosis. Degenerative changes in the coxofemoral joints sacroiliac joints. Bone marrow inhomogeneity. CT/CT abdomen pelvis w IV con IMPRESSION: Cirrhosis with ascites and patent umbilical vein suggesting portal hypertension. Spontaneous bacterial peritonitis cannot be excluded. Fleischner guidelines were followed. Electronically signed by: Cosme Vidal MD 01/21/2025 03:31 PM EDT
[2025-01-21 09:38] LABS: MANUAL DIFF FLAG NO
[2025-01-21 09:42] LABS: Hematocrit 42.3 % (42.0-52.0); Hemoglobin 14.3 g/dl (14.0-18.0); Imm Gran Abs Auto 0.05 X10*3/uL (0.00-0.03); Imm Gran Pct Auto 0.5 % (0.0-0.4); Lymphocytes Absolute Auto 1.3 X10*3/uL (1.2-4.9); Mean Corpuscular HGB Conc 33.8 g/dl (31.0-36.0); Mean Corpuscular Hemoglobin 30.6 pg (27.0-33.0); Mean Corpuscular Volume 90.6 fL (80.0-98.0); NRBC Abs Auto 0.000 X10*3/uL (0.0-0.012); NRBC Pct Auto 0.0 /100WBC (0.0-0.2); Platelet Count 340 X10*3/uL (160-400); Red Blood Count 4.67 X10*6/uL (4.60-5.80); White Blood Count 9.3 X10*3/uL (4.8-10.8)
[2025-01-21 09:55] LABS: Alanine Aminotransferase 13 U/L (0-40); Albumin Level 4.3 g/dL (3.5-5.0); Alkaline Phosphatase 354 U/L (39-117); Anion Gap 15 (12-20); Aspartate Amino Transferase 31 U/L (5-37); Blood Urea Nitrogen 17 mg/dL (9-16); Calcium 10.7 mg/dL (8.4-10.2); Carbon Dioxide 26 mmol/L (22-29); Chloride 97 mmol/L (96-108); Creatinine Clr Calc Pharmacy 32.4; Estimated Glomerular Filt Rate > 60; Lipase 93 U/L (8-78); Potassium 4.7 mmol/L (3.3-5.1); Sodium 133 mmol/L (135-145); Total Protein 8.1 g/dL (6.5-8.0)
--- NOTE | 2025-01-21 11:09 | ED.GENADULT ---
HPI - General Adult General Chief complaint: Abdominal Pain Stated complaint: B/L Leg Pain Retaining Fluids Time Seen by Provider: 01/21/25 11:00 Source: patient and old records reviewed Mode of arrival: ambulatory Limitations: no limitations History of Present Illness ED Provider: GINNY SHEFFIELD narrative: 59 yo male with PMH of ETOH abuse heavy but has not had a drink in 120 days, recent work up for abdominal ascites but no cirrhosis seen on CT scan, neuropathy on trazodone - he is still taking his spironolactone and furosemide. He tells me he cannot get a PCP until April and he was told by Dr. Quintanilla he does not have an issue with his liver so he states he has no GI doctor. He comes in today with c/o recurrent swelling of abdomen, fatigue, considerable weight loss > 30lbs. He states he feels like even though is abdomen is big he is losing weight everywhere else. He had US here and paracentesis with 6L removed about 1.5 months ago. He denies any other concerns and states he needs to see band splitter for possible autoimmune disease but is not clear what is occuring. He is strict with his 1.5L fluid intake. complaint: ascites, FTT, weight loss Onset (ago): month(s) (2+) Location: abdomen Radiation: non-radiation Quality: aching Relieving factors: none Exacerbating factors: movement Associated symptoms: loss of appetite, malaise, weakness and other (weight loss) Treatments prior to arrival: none Related Data Previous Rx's ?Medication ?Instructions ?Recorded folic acid 1 mg tablet 1 mg PO DAILY #90 tabs 11/15/24 furosemide 40 mg tablet 40 mg PO DAILY #90 tabs 11/15/24 spironolactone 100 mg tablet 100 mg PO DAILY #90 tabs 11/15/24 prednisone 20 mg tablet 40 mg (2 x 20 mg) PO DAILY #10 tabs 12/22/24 Allergies Allergy/AdvReac Type Severity Reaction Status Date / Time No Known Allergies Allergy Verified 01/21/25 09:19 Review of Systems Review of Systems: Constitutional : pos Weight loss, No Fever, No Chills ENT/Mouth : No sore throat, No Rhinorrhea Eyes: No Swelling, No Redness Cardiovascular : No Chest Pain, No SOB, No edema Respiratory : No Cough, No Sputum, No Wheezing Gastrointestinal : Positive Nausea, no Vomiting, no Diarrhea, positive abdominal Pain, No Hematochezia, No Melena Genitourinary : No Dysuria, No Urinary Frequency, No Hematuria, No Urgency Musculoskeletal : No joint pain, No Myalgias, No Joint Swelling Skin : No Skin Lesions, No rash Neuro : pos Weakness, No Numbness, No Dizziness, No Headache All other systems reviewed and are negative. [facility] Past Medical History Attestation statement: The following information was validated with the patient. Source: old records reviewed Medical History Peripheral neuropathy Social History Social History Household Members: Spouse and Children Housing: House Do you presently have visiting nurse or other home services: No Alcohol intake: former Patient Tobacco Use Status: Never used Tobacco Advance Directives: No Advance Directives Information Provided: No Do you have a plan to hurt others: No Plan service: No Physical Exam ED Vital Signs: Vital Signs - 24 hr 01/21/25 09:15 01/21/25 10:15 01/21/25 12:47 Temperature 97.1 F 97.8 F 97.4 F Pulse Rate 100 85 86 Respiratory Rate 18 18 16 Blood Pressure 133/84 122/82 117/82 Pulse Oximetry 98 98 98 Oxygen Delivery Method Room Air Room Air Room Air BMI result Body Mass Index 10.1 Appearance: Alert. Oriented X3. No acute distress. Thin other than ascites and tense abdomen, temporal wasting Eyes: Pupils equal, round and reactive to light. ENT: Pharynx dry MM Neck: Normal inspection. Neck supple. CVS: Normal heart rate and rhythm. Pulses normal. Respiratory: No respiratory distress. Breath sounds rales L base noted Abdomen: Soft and no localized ttp has moderate ascites, engorged abd wall vessels Skin: Skin warm and dry. pale skin color. Normal skin turgor. Extremities: No lower extremity edema. Neuro: Oriented X 3. No motor deficit. No sensory deficit. CN2-12 intact Course Course Course Narrative: signed out to Ladarius YOST pending CT scans Reevaluation(s) Reevaluation #1: I, Dr. Durand have take over the care of this patient, I reviewed pertinent blood work and imaging, re-evaluated the patient when appropriate. Time: 15:02 Medications Administered Discontinued Medications Generic Name Dose Route Start Last Admin Trade Name Ana PRN Reason Stop Dose Admin Thiamine HCl 200 mg/ Sodium 102 mls @ 204 mls/hr 01/21/25 11:40 01/21/25 12:44 Chloride IV 01/21/25 12:09 Infused ONCE ONE Infusion Iohexol 100 ml 01/21/25 14:42 01/21/25 14:43 Iohexol 350 Mg/Ml 100 Ml Infus..Btl IV 01/21/25 14:43 100 ml ONCE ONE Administration Medical Decision Making Medical Decision Making [facility] Narrative: 59 yo male with neuropathy, unexplained abdominal ascites without cirrhosis on US who has no PCP and no GI doctor following 1.5L restriction as well as spironolactone and lasix. He has no other signs of edema but has weight loss and trending up alk phos and calcium at this time my main concern is malignancy. Will obtain luna CT scan of chest and abdomen to evaluate source of ascites. He has no fevers, wbc count to suggest SBP. 16:[address] Malhotra who did not feel that patient is necessary for admission but recommended I get in touch with Dr. Quintanilla with the itch I did and I discussed case with Dr. Dwight Quintanilla agreed for admission for paracentesis, I will admit for diagnostic and therapeutic paracentesis and medical optimization. But this looks like alcoholic liver cirrhosis. Differential Diagnosis Differential Diagnoses: The differential diagnosis associated with the presentation includes malignancy, cirrhosis, hypoalbuminemia Admission/Observation Consideration of admission/observation: Escalation of care including admission/observation considered Lab Data [facility] Lab Attestation statement: I reviewed the patient's lab results. 01/21/25 09:30 01/21/25 09:30 Labs: Lab Results 01/21/25 01/21/25 01/21/25 Range/Units 09:30 12:01 13:17 WBC 9.3 (4.8-10.8) X10*3/uL RBC 4.67 D (4.60-5.80) X10*6/uL Hgb 14.3 (14.0-18.0) g/dl Hct 42.3 (42.0-52.0) % MCV 90.6 (80.0-98.0) fL MCH 30.6 (27.0-33.0) pg MCHC 33.8 (31.0-36.0) g/dl RDW 13.8 (11.0-16.0) % Plt Count 340 (160-400) X10*3/uL MPV 10.0 (9.4-12.4) fL Immature Gran % (Auto) 0.5 H (0.0-0.4) % Neut % (Auto) 74.4 H (45-73) % Lymph % (Auto) 13.6 L (20-40) % [place] % (Auto) 7.4 (2-11) % Eos % (Auto) 3.3 (0-4) % Baso % (Auto) 0.8 (0-2) % Lymph # (Auto) 1.3 (1.2-4.9) X10*3/uL [place] # (Auto) 0.7 (0.1-1.2) X10*3/uL Eos # (Auto) 0.3 (0.0-0.4) X10*3/uL Baso # (Auto) 0.1 (0.0-0.2) X10*3/uL Abs Immat Gran (auto) 0.05 H (0.00-0.03) X10*3/uL Absolute Neuts (auto) 6.9 (2.0-8.3) x10*3/uL Absolute Nucleated RBC 0.000 (0.0-0.012) X10*3/uL Nucleated RBC % (auto) 0.0 (0.0-0.2) /100WBC PT 14.1 H D (10.9-12.4) SEC INR 1.2 H (0.9-1.1) Sodium 133 L (135-145) mmol/L Potassium 4.7 D (3.3-5.1) mmol/L Chloride 97 (96-108) mmol/L Carbon Dioxide 26 (22-29) mmol/L Anion Gap 15 (12-20) BUN 17 H (9-16) mg/dL Creatinine 1.19 (0.5-1.4) mg/dL Estim Creat Clear Calc 32.4 Estimated GFR > 60 Random Glucose 156 H (60-115) mg/dL Calcium 10.7 H D (8.4-10.2) mg/dL Magnesium 1.8 (1.6-2.6) mg/dL Total Bilirubin 0.9 (0.0-1.0) mg/dL Direct Bilirubin 0.5 (0.0-0.5) mg/dL AST 31 (5-37) U/L ALT 13 (0-40) U/L Alkaline Phosphatase 354 H (39-117) U/L Ammonia 50 (13-55) umol/L Total Protein 8.1 H (6.5-8.0) g/dL Albumin 4.3 (3.5-5.0) g/dL Lipase 93 H (8-78) U/L Urine Color Dark Yellow Urine Appearance Clear Urine pH 6.5 (5.0-9.0) Ur Specific [place] 1.020 (1.005-1.025) Urine Protein Trace (Neg-Trace) mg/dL Urine Glucose (UA) Negative (Negative) mg/dL Urine Ketones Negative (Negative) mg/dL Urine Blood Large (3+) H (Negative) Urine Nitrite Negative (Negative) Ur Leukocyte Esterase Small (1+) H (Negative) Urine RBC 6-10 H (0-2) /HPF Urine WBC 0-5 (0-5) /HPF Ur Squamous Epith Cells 0-2 (0-2) /HPF Calcium Oxalate Crystal Present Urine Bacteria None Seen (None Seen) Hyaline Casts 6-10 (0-2) /LPF Independent Interpretation I performed an independent interpretation of an: CT Scan Radiology Impression Discussion of test interpretation with radiology: I have reviewed the radiologist's reading. Radiologist Impression: CT/CT abdomen pelvis w IV con IMPRESSION: Cirrhosis with ascites and patent umbilical vein suggesting portal hypertension. Spontaneous bacterial peritonitis cannot be excluded. Independent Historian Clinical information obtained from an independent historian. History obtained from or confirmed by: Other (brother) External Record Review External record reviewed: Inpatient record, Outpatient record and Prior outpatient radiology Discharge Plan Discharge Clinical Impression: Adult failure to thrive, Abdominal ascites Patient Disposition: Admitted As Inpatient Print Language: Mohawk
[2025-01-21 11:55] LABS: Magnesium 1.8 mg/dL (1.6-2.6)
[2025-01-21] MEDS: Thiamine HCL 200 MG in 0.9 % Sodium Chloride 100 ML 204 MG IV (12:14)
[2025-01-21 12:24] LABS: Ammonia 50 umol/L (13-55)
[2025-01-21 12:30] LABS: INTERNATIONAL NORM RATIO 1.2 (0.9-1.1); Prothrombin Time 14.1 SEC (10.9-12.4)
[2025-01-21 13:26] LABS: Appearance Urine Clear; Glucose Urine UA Negative (Negative); PH 6.5 (5.0-9.0); Specific Gravity - Urine 1.020 (1.005-1.025); UMIC TRIGGER UACC YES
[2025-01-21 13:44] LABS: UACC Culture Trigger YES
[2025-01-21] MEDS: iohexoL 350 MG/ML 100 ML INFUS..BTL IV (14:43)
[2025-01-21] MEDS: Lidocaine HCl 1 % MPF 5 ML VIAL SUBCUT (16:48)
--- NOTE | 2025-01-21 17:09 | PC.NURSE ---
3250mls of perontoneal fluid drained from pt- pt tolerated procedure well - SUZIE Crawford notified via [employer] connect
[2025-01-21 17:21] LABS: MN% 79.4 %; PMN% 20.6 %; WBC Peritoneal Fluid 0.605 X10*3/uL
[2025-01-21 17:55] LABS: BF Shift QC OK YES; Lymphocyte Peritoneal Fl 33 %; Monocytes Peritoneal Fl 19 %; Neutrophils Peritoneal Fluid 23 %; Other Peritioneal Fl 25 %
--- NOTE | 2025-01-21 18:22 | PM.IMHP ---
History of Present Illness Date of Service: 01/21/25 Chief Complaint: ascites 59yo M with hx ascites last tapped in October 2024, AUD but sober for past [address] Quintanilla then and ascites attributed to alcoholic liver disease but there is some concern of autoimmune etiology with JESSICA of 1:320 (nuclear, speckled pattern) though AMA and ASMA negative. He is on diuretics [furosemide and spironolactone] and low-sodium diet. He comes in today with worsening ascites though without any fever, hematemesis, hematochezia, or melena nor confusion and 3+ L was removed in the ED with relief of distenion. Fluid analysis revealed [address] A/P showed nodular liver with ascites and patent umbilical vein indicative of portal HTN. Review of Systems Review of Systems: Yes all other systems are reviewed and are negative [facility] Medical History Peripheral neuropathy Social History Household Members: Spouse and Children Housing: House Do you presently have visiting nurse or other home services: No Alcohol intake: former Patient Tobacco Use Status: Never used Tobacco Advance Directives: No Advance Directives Information Provided: No Do you have a plan to hurt others: No Plan service: No Meds Allergies Allergy/AdvReac Type Severity Reaction Status Date / Time No Known Allergies Allergy Verified 01/21/25 09:19 Active Medications: Current Medications Acetaminophen (Acetaminophen 325 Mg Tablet) 650 mg PO Q6H PRN PRN Reason: Pain, Mild 1-3,fever,headache Calcium Carbonate (Calcium Carbonate 750 Mg Tab.Chew) 750 mg PO Q4H PRN PRN Reason: Heartburn Enoxaparin Sodium (Enoxaparin Sodium 40 Mg/0.4 Ml Syringe) 40 mg SUBCUT Q24H DION Magnesium Hydroxide (Milk Of Magnesia 30 Ml Oral.Susp) 30 ml PO DAILY PRN PRN Reason: Constipation Melatonin (Melatonin 3 Mg Tablet) 6 mg PO BEDTIME PRN PRN Reason: Insomnia Ondansetron HCl (Ondansetron Hcl 4 Mg/2 Ml Vial) 4 mg IVPUSH Q8H PRN PRN Reason: Nausea and Vomiting Sodium Chloride (0.9 % Sodium Chloride Flush 3 Ml Syringe) 3 ml IVFLUSH [facility] Physical Exam Vital Signs and Narrative: Vital Signs: Last Vital Signs Temp 97.9 F 01/21/25 16:37 Pulse 84 01/21/25 16:37 Resp 18 01/21/25 16:37 BP 103/62 01/21/25 16:37 Pulse Ox 97 01/21/25 16:37 O2 Del Method Room Air 01/21/25 16:37 BMI result Body Mass Index 10.1 Gen: in no acute distress HEENT: sclera anicteric, moist mucus membranes Neck: supple Lungs: clear to auscultation bilaterally Heart: regular rate and rhythm, no murmurs Abd: soft, non-tender, minimal distension, dry paracentesis site Ext: no edema Skin: warm/well-perfused Neuro: alert and oriented x3, no focal findings, no asterixis Psych: appropriate affect Results Labs 01/21/25 09:30 01/21/25 09:30 Labs: Laboratory Results - last 24 hr 01/21/25 01/21/25 01/21/25 09:30 12:01 13:17 MCV 90.6 MCH 30.6 MCHC 33.8 RDW 13.8 Plt Count 340 MPV 10.0 Immature Gran % (Auto) 0.5 H Neut % (Auto) 74.4 H Lymph % (Auto) 13.6 L [place] % (Auto) 7.4 Eos % (Auto) 3.3 Baso % (Auto) 0.8 Lymph # (Auto) 1.3 [place] # (Auto) 0.7 Eos # (Auto) 0.3 Baso # (Auto) 0.1 Abs Immat Gran (auto) 0.05 H Absolute Neuts (auto) 6.9 Absolute Nucleated RBC 0.000 Nucleated RBC % (auto) 0.0 PT 14.1 H D INR 1.2 H Anion Gap 15 Estim Creat Clear Calc 32.4 Estimated GFR > 60 Random Glucose 156 H Calcium 10.7 H D Magnesium 1.8 Total Bilirubin 0.9 Direct Bilirubin 0.5 AST 31 ALT 13 Alkaline Phosphatase 354 H Ammonia 50 Total Protein 8.1 H Albumin 4.3 Lipase 93 H Urine Color Dark Yellow Urine Appearance Clear Urine pH 6.5 Ur Specific [place] 1.020 Urine Protein Trace Urine Glucose (UA) Negative Urine Ketones Negative Urine Blood Large (3+) H Urine Nitrite Negative Ur Leukocyte Esterase Small (1+) H Urine RBC 6-10 H Urine WBC 0-5 Ur Squamous Epith Cells 0-2 Calcium Oxalate Crystal Present Urine Bacteria None Seen Hyaline Casts 6-10 Peritoneal WBC Peritoneal RBC Periton Neutrophils Periton Lymphocytes Peritoneal Monocytes Peritoneal Other Cells 01/21/25 16:55 MCV MCH MCHC RDW Plt Count MPV Immature Gran % (Auto) Neut % (Auto) Lymph % (Auto) [place] % (Auto) Eos % (Auto) Baso % (Auto) Lymph # (Auto) [place] # (Auto) Eos # (Auto) Baso # (Auto) Abs Immat Gran (auto) Absolute Neuts (auto) Absolute Nucleated RBC Nucleated RBC % (auto) PT INR Anion Gap Estim Creat Clear Calc Estimated GFR Random Glucose Calcium Magnesium Total Bilirubin Direct Bilirubin AST ALT Alkaline Phosphatase Ammonia Total Protein Albumin Lipase Urine Color Urine Appearance Urine pH Ur Specific [place] Urine Protein Urine Glucose (UA) Urine Ketones Urine Blood Urine Nitrite Ur Leukocyte Esterase Urine RBC Urine WBC Ur Squamous Epith Cells Calcium Oxalate Crystal Urine Bacteria Hyaline Casts Peritoneal WBC 0.605 Peritoneal RBC < 0.002 Periton Neutrophils 23 Periton Lymphocytes 33 Peritoneal Monocytes 19 Peritoneal Other Cells 25 Imaging Radiologist's Impressions: Impressions Abdomen/Pelvis CT 01/21/25 14:14 IMPRESSION: Cirrhosis with ascites and patent umbilical vein suggesting portal hypertension. Spontaneous bacterial peritonitis cannot be excluded. Fleischner guidelines were followed. Electronically signed by: Cosme Vidal MD 01/21/2025 03:[address] 01/21/25 14:14 IMPRESSION: 1. Tiny right lower lobe and left upper lobe pulmonary nodules. Otherwise unremarkable CT of the chest. Please see Fleischner Society guidelines below. 2. Large amount of ascites in the upper abdomen. Probable hepatosplenomegaly. Please see CT of the abdomen and pelvis report dictated separately. Fleischner Criteria for pulmonary nodule follow-up SOLID NODULES: Low risk patient: <6mm: no follow-up 6-8mm: 6 month follow-up CT >8mm: PET/Biopsy/ 3 month follow-up CT High risk patient: <6mm: 12 month follow-up CT 6-8mm: 6 month follow-up CT >8mm: PET/Biopsy/ 3 month follow-up CT SUB-SOLID/GROUNDGLASS NODULES: All patients: > or = 6mm: 6 month follow-up CT *Please note that in patients in the following categories, the Fleischner criteria do not apply: Immunocompromised, lung cancer screening population, age below 35, and patients with known malignancy Electronically signed by: Ayo Mejia MD 01/21/2025 03:30 PM EDT RP Assessment and Plan (1) Abdominal ascites: Qualifiers: Ascites type: other type Qualified Code(s): R18.8 - Other ascites Status: Acute Plan 59yo M with cirrhosis with ascites, AUD in remission presenting with ascites re-accumulation despite diuretic therapy cirrhosis with ascites - per ED discussion with GI to consult admit to M/S and will consult GI, follow fluids chemistries + cultures, continue diuretics (may need to increase doses), restrict sodium, establish outpatient GI care AUD - sober x120d; encouraged to maintain abstinence VTE ppx - enoxaparin dispo - eventual home code status - full I anticipate that the patient will stay at least 2 midnights as an inpatient in the hospital due to the above reasons. It is neither reasonable nor safe to care for them in a less acute setting. Quality Stroke Does the patient have a stroke diagnosis?: No VTE Prior VTE?: No VTE Risk Level:: Medical - moderate - high VTE Device Contraindication: N/A - Device Ordered VTE Drug Contraindication: N/A - Med Ordered
--- NOTE | 2025-01-21 21:09 | PHA.MEDREC ---
Addendum entered by Lilly Fischer RPh 01/21/25 21:12: MED REC REVIEWED BY [facility] Original Note: Pharmacy Consult ? Medication Reconciliation Pharmacy has completed the medication reconciliation. Spoke with pt and he confirmed his medications.
[2025-01-22 00:12] VITALS: BMI 21.4
[2025-01-22 00:17] VITALS: BP 132/81; PULSE 83; RESP 18; TEMP 36.1; O2SAT 99
[2025-01-22] MEDS: 0.9 % Sodium Chloride Flush 3 ML SYRINGE IVFLUSH ×2 (00:32→09:20)
[2025-01-22 03:32] VITALS: BP 95/62; PULSE 69; RESP 18; TEMP 36.1; O2SAT 96
[2025-01-22 06:37] LABS: MANUAL DIFF FLAG NO
[2025-01-22 07:03] LABS: Alanine Aminotransferase 9 U/L (0-40); Albumin Level 3.5 g/dL (3.5-5.0); Alkaline Phosphatase 298 U/L (39-117); Anion Gap 11 (12-20); Aspartate Amino Transferase 30 U/L (5-37); Blood Urea Nitrogen 15 mg/dL (9-16); Carbon Dioxide 26 mmol/L (22-29); Chloride 101 mmol/L (96-108); Creatinine Clr Calc Pharmacy 96.0; Estimated Glomerular Filt Rate > 60; Potassium 4.2 mmol/L (3.3-5.1); Sodium 134 mmol/L (135-145); Total Protein 6.5 g/dL (6.5-8.0)
[2025-01-22 07:09] LABS: Calcium 9.7 mg/dL (8.4-10.2)
[2025-01-22 07:10] LABS: Hematocrit 36.8 % (42.0-52.0); Hemoglobin 12.7 g/dl (14.0-18.0); Imm Gran Abs Auto 0.03 X10*3/uL (0.00-0.03); Imm Gran Pct Auto 0.5 % (0.0-0.4); Lymphocytes Absolute Auto 1.2 X10*3/uL (1.2-4.9); Mean Corpuscular HGB Conc 34.5 g/dl (31.0-36.0); Mean Corpuscular Hemoglobin 30.8 pg (27.0-33.0); Mean Corpuscular Volume 89.3 fL (80.0-98.0); NRBC Abs Auto 0.000 X10*3/uL (0.0-0.012); NRBC Pct Auto 0.0 /100WBC (0.0-0.2); Platelet Count 229 X10*3/uL (160-400); Red Blood Count 4.12 X10*6/uL (4.60-5.80); White Blood Count 6.2 X10*3/uL (4.8-10.8)
[2025-01-22 07:36] VITALS: BP 104/65; PULSE 76; RESP 16; TEMP 36.1; O2SAT 99
[2025-01-22 07:40] LABS: pH Peritoneal Fluid 7.50
[2025-01-22 07:41] LABS: Albumin Peritoneal Fluid 2.4
--- NOTE | 2025-01-22 09:26 | CONS_ITS ---
DATE OF SERVICE: 01/22/2025 REFERRING PHYSICIAN: Dr. Malhotra REASON FOR CONSULTATION: Cirrhosis with ascites. HISTORY OF PRESENT ILLNESS: The patient is a pleasant 59-year-old man known to me from previous evaluation. He was hospitalized in October with cirrhosis and ascites and was discharged on furosemide and Aldactone. He required paracentesis of approximately 6 L at that time. There was no evidence of SBP. At home, he did well until about 2 weeks ago when he developed recurrence of his ascites. He states he has been compliant with his diuretics. He presented to the emergency room and was admitted to the hospital and underwent paracentesis. Overnight, he has done well. He states compliance with medications and has been abstinent from alcohol for approximately 4 months. As part of his evaluation, he did have a positive antinuclear antibody in a pattern that was not consistent with autoimmune liver disease. Other autoimmune markers for liver disease were negative including smooth muscle and mitochondrial antibodies. Liver disease on the basis of alcohol including prolonged use over many years. PAST MEDICAL HISTORY: 1. Alcohol abuse, currently in remission. 2. Peripheral neuropathy. 3. Cirrhosis with ascites. CURRENT MEDICATIONS: His current medication list is reviewed in the chart. ALLERGIES: THERE ARE NONE REPORTED. FAMILY HISTORY: This is reviewed with the patient and is noncontributory. SOCIAL HISTORY: He denies current alcohol use. REVIEW OF SYSTEMS: SKIN: No pruritus. HEENT: Negative. CARDIOPULMONARY: No shortness of breath or chest pain. GASTROINTESTINAL: As above. GENITOURINARY: Negative. NEUROPSYCHIATRIC: Negative. PHYSICAL EXAMINATION: GENERAL: Shows a pleasant male, lying comfortably in bed. VITAL SIGNS: Reviewed in electronic medical record and are stable. SKIN: Anicteric. HEENT: Shows no scleral icterus. NECK: Without lymphadenopathy or thyromegaly. LUNGS: Clear. HEART: Shows regular rate and rhythm. S1, S2. No murmur. ABDOMEN: Soft. Bowel sounds are present. There is no focal guarding, tenderness, or rebound. EXTREMITIES: Without edema. LABORATORY DATA AND IMAGING STUDIES: Reviewed. Differential on his ascites fluid is not consistent with SBP. IMPRESSION: Cirrhosis with ascites. I discussed with him the need to limit his fluid intake to less than 2 L a day and avoid salty foods including frozen foods and canned foods. I would recommend increasing his furosemide to 80 mg and continuing his spironolactone. He will eventually need further evaluation with endoscopy and screening colonoscopy and this can be arranged as an outpatient. Liver transplant referral evaluation can be started as an outpatient as well. I discussed this with him in detail. Thanks for asking me to see him. I will follow him in the hospital with you. MD ROSALEE Flannery/GETACHEW / [phone]
--- NOTE | 2025-01-22 09:39 | MHC.CM.PN ---
Addendum entered by Daksha Frias RN 01/22/25 10:38: Patient medically cleared for dc home self care. Brother will transport at 11am. RN aware. Original Note: Patient lives in a home w/ his and adult son. Independent w/ ADL's, but uses a walker PRN when taking walks in his neighborhood. Also uses a shower chair PRN. PCP Jaycee Montoya CUSTOMER SERVICE LEADER at [facility] No HCP. CM provided education and offered assistance. Patient declined - says he is already working on one with his brother. DP: Goal is home self care, ? need for services, referrals sent via [facility]. Brother, Musa, will transport home. CM will continue to follow.
--- NOTE | 2025-01-22 10:21 | P.DS_ITS ---
DS: Providers Provider Date of Service: 01/22/25 Date of admission: 01/21/25 17:17 Date of discharge: 01/22/25 Primary care physician: MONTY Krueger Consults: 01/21/25 16:47 Consult to Gastroenterology Routine Consulting Provider: [facility] Bliss Reason for consultation: ascites, cirrhosis DS: Diagnosis Discharge Diagnosis (1) Abdominal ascites: Status: Acute (2) Cirrhosis of liver: Status: Acute DS: Summary Hospital Course Hospital Course: from my admission History and Physical, 01/21/25: 59yo M with hx ascites last tapped in October 2024, AUD but sober for past [address] Quintanilla then and ascites attributed to alcoholic liver disease but there is some concern of autoimmune etiology with JESSICA of 1:320 (nuclear, speckled pattern) though AMA and ASMA negative. He is on diuretics [furosemide and spironolactone] and low- sodium diet. He comes in today with worsening ascites though without any fever, hematemesis, hematochezia, or melena nor confusion and 3+ L was removed in the ED with relief of distenion. Fluid analysis revealed [address] A/P showed nodular liver with ascites and patent umbilical vein indicative of portal HTN. He was admitted to the hospitalist service on the medical-surgical unit. Fluid studies consistent with portan HTN. No signs of hepatic encephalopathy nor GI bleeding. Dr Quintanilla was consulted and he was discharged home on a higher dose of furosemide [80 rather than 40 mg daily] and will continue spironolactone. Repeat BMP and magnesium in 1 week. He will follow up with Dr Quintanilla in 2-3 weeks for ongoing GI care including screening EGD. He was encouraged to maintain sobriety. Incidental note was made of 3 and 2 mm pulmonary nodules which could be followed with repeat CT scan in 12 months. Time Attestation Discharge Coordination Time (in mins): 35 Quality: Safe Use of Opioids Does Pt have an Active Cancer Diagnosis on the Problem List?: No Quality: Stroke Does the patient have a stroke diagnosis?: No Physical Exam Vital Signs: Vital Signs: Last Vital Signs Temp 96.9 F 01/22/25 07:36 Pulse 76 01/22/25 07:36 Resp 16 01/22/25 07:36 BP 104/65 01/22/25 07:36 Pulse Ox 99 01/22/25 07:36 O2 Del Method Room Air 01/22/25 07:36 BMI result Body Mass Index 21.4 Gen: in no acute distress HEENT: sclera anicteric, moist mucus membranes Neck: supple Lungs: clear to auscultation bilaterally Heart: regular rate and rhythm, no murmurs Abd: soft, non-tender, minimal distension, paracentesis site dry Ext: no edema Skin: warm/well-perfused Neuro: alert and oriented x3, no focal findings, no asterixis Psych: appropriate affect DS: Data Data Completed and Pending Completed studies during hospitalization [Text1]: Laboratory Results WBC 6.2 X10*3/uL (4.8-10.8) 01/22/25 06:27 RBC 4.12 X10*6/uL (4.60-5.80) L 01/22/25 06:27 Hgb 12.7 g/dl (14.0-18.0) L 01/22/25 06:27 Hct 36.8 % (42.0-52.0) L 01/22/25 06:27 MCV 89.3 fL (80.0-98.0) 01/22/25 06:27 MCH 30.8 pg (27.0-33.0) 01/22/25 06:27 MCHC 34.5 g/dl (31.0-36.0) 01/22/25 06:27 RDW 13.5 % (11.0-16.0) 01/22/25 06:27 Plt Count 229 X10*3/uL (160-400) D 01/22/25 06:27 MPV 10.7 fL (9.4-12.4) 01/22/25 06:27 Immature Gran % (Auto) 0.5 % (0.0-0.4) H 01/22/25 06:27 Neut % (Auto) 65.1 % (45-73) 01/22/25 06:27 Lymph % (Auto) 18.8 % (20-40) L 01/22/25 06:27 [place] % (Auto) 11.1 % (2-11) H 01/22/25 06:27 Eos % (Auto) 3.5 % (0-4) 01/22/25 06:27 Baso % (Auto) 1.0 % (0-2) 01/22/25 06: Lymph # (Auto) 1.2 X10*3/uL (1.2-4.9) 01/22/25 06:27 [place] # (Auto) 0.7 X10*3/uL (0.1-1.2) 01/22/25 06:27 Eos # (Auto) 0.2 X10*3/uL (0.0-0.4) 01/22/25 06:27 Baso # (Auto) 0.1 X10*3/uL (0.0-0.2) 01/22/25 06:27 Abs Immat Gran (auto) 0.03 X10*3/uL (0.00-0.03) 01/22/25 06:27 Absolute Neuts (auto) 4.1 x10*3/uL (2.0-8.3) 01/22/25 06: Absolute Nucleated RBC 0.000 X10*3/uL (0.0-0.012) 01/22/25 06: Nucleated RBC % (auto) 0.0 /100WBC (0.0-0.2) 01/22/25 06: PT 14.1 SEC (10.9-12.4) H D 01/21/25 12:01 INR 1.2 (0.9-1.1) H 01/21/25 12:01 Sodium 134 mmol/L (135-145) L 01/22/25 06: Potassium 4.2 mmol/L (3.3-5.1) 01/22/25 06: Chloride 101 mmol/L (96-108) 01/22/25 06:27 Carbon Dioxide 26 mmol/L (22-29) 01/22/25 06:27 Anion Gap 11 (12-20) L 01/22/25 06:27 BUN 15 mg/dL (9-16) 01/22/25 06:27 Creatinine 0.85 mg/dL (0.5-1.4) 01/22/25 06:27 Estim Creat Clear Calc 96.0 01/22/25 06:27 Estimated GFR > 60 01/22/25 06:27 Random Glucose 103 mg/dL (60-115) 01/22/25 06:27 Calcium 9.7 mg/dL (8.4-10.2) D 01/22/25 06:27 Magnesium 1.8 mg/dL (1.6-2.6) 01/21/25 09:30 Total Bilirubin 0.8 mg/dL (0.0-1.0) 01/22/25 06: Direct Bilirubin 0.5 mg/dL (0.0-0.5) 01/21/25 09:30 AST 30 U/L (5-37) 01/22/25 06:27 ALT 9 U/L (0-40) 01/22/25 06:27 Alkaline Phosphatase 298 U/L (39-117) H 01/22/25 06:27 Ammonia 50 umol/L (13-55) 01/21/25 12:01 Total Protein 6.5 g/dL (6.5-8.0) 01/22/25 06: Albumin 3.5 g/dL (3.5-5.0) 01/22/25 06: Lipase 93 U/L (8-78) H 01/21/25 09:30 Urine Color Dark Yellow 01/21/25 13:17 Urine Appearance Clear 01/21/25 13:17 Urine pH 6.5 (5.0-9.0) 01/21/25 13:17 Ur Specific [place] 1.020 (1.005-1.025) 01/21/25 13:17 Urine Protein Trace mg/dL (Neg-Trace) 01/21/25 13:17 Urine Glucose (UA) Negative mg/dL (Negative) 01/21/25 13:17 Urine Ketones Negative mg/dL (Negative) 01/21/25 13:17 Urine Blood Large (3+) (Negative) H 01/21/25 13:17 Urine Nitrite Negative (Negative) 01/21/25 13:17 Ur Leukocyte Esterase Small (1+) (Negative) H 01/21/25 13:17 Urine RBC 6-10 /HPF (0-2) H 01/21/25 13:17 Urine WBC 0-5 /HPF (0-5) 01/21/25 13:17 Ur Squamous Epith Cells 0-2 /HPF (0-2) 01/21/25 13:17 Calcium Oxalate Crystal Present 01/21/25 13:17 Urine Bacteria None Seen (None Seen) 01/21/25 13:17 Hyaline Casts 6-10 /LPF (0-2) 01/21/25 13:17 Peritoneal pH 7.50 01/21/25 16:55 Peritoneal WBC 0.605 X10*3/uL 01/21/25 16:55 Peritoneal RBC < 0.002 X10*6/uL 01/21/25 16:55 Periton Neutrophils 23 % 01/21/25 16:55 Periton Lymphocytes 33 % 01/21/25 16:55 Peritoneal Monocytes 19 % 01/21/25 16:55 Peritoneal Other Cells 25 % 01/21/25 16:55 Peritoneal Tot Protein 3.5 01/21/25 16:55 Peritoneal Albumin 2.4 01/21/25 16:55 Peritoneal LDH 60 01/21/25 16:55 Peritoneal Glucose 131 01/21/25 16:55 Peritoneal Amylase 35 01/21/25 16:55 Impressions Abdomen/Pelvis CT 01/21/25 14:14 IMPRESSION: Cirrhosis with ascites and patent umbilical vein suggesting portal hypertension. Spontaneous bacterial peritonitis cannot be excluded. Fleischner guidelines were followed. Electronically signed by: Cosme Vidal MD 01/21/2025 03:[address] 01/21/25 14:14 IMPRESSION: 1. Tiny right lower lobe and left upper lobe pulmonary nodules. Otherwise unremarkable CT of the chest. Please see Fleischner Society guidelines below. 2. Large amount of ascites in the upper abdomen. Probable hepatosplenomegaly. Please see CT of the abdomen and pelvis report dictated separately. Fleischner Criteria for pulmonary nodule follow-up SOLID NODULES: Low risk patient: <6mm: no follow-up 6-8mm: 6 month follow-up CT >8mm: PET/Biopsy/ 3 month follow-up CT High risk patient: <6mm: 12 month follow-up CT 6-8mm: 6 month follow-up CT >8mm: PET/Biopsy/ 3 month follow-up CT SUB-SOLID/GROUNDGLASS NODULES: All patients: > or = 6mm: 6 month follow-up CT *Please note that in patients in the following categories, the Fleischner criteria do not apply: Immunocompromised, lung cancer screening population, age below 35, and patients with known malignancy Electronically signed by: Ayo Mejia MD 01/21/2025 03:30 PM EDT RP Discharge Plan Discharge Anticipated Discharge Date/Time: 01/22/25 09:58 Patient Disposition: Home, Self-Care Discharge Diagnosis: ascites due to cirrhosis, likely from prior alcohol abuse Referrals: Jaycee Montoya FNP [Primary Care Provider, Primary Care] - 1 Week Meir Quintanilla MD [Physician, Gastroenterology] - 2 Weeks Discharge Medications: New furosemide 80 mg tablet 80 mg PO DAILY Qty: 90 0RF Continued multivitamin Tablet 1 tab PO DAILY cyanocobalamin (vitamin B-12) [Vitamin B-12] 500 mcg Tablet 500 mcg PO DAILY trazodone 50 mg tablet 50 mg PO BEDTIME PRN (Reason: insomnia) spironolactone 100 mg tablet 100 mg PO DAILY Qty: 90 0RF Rx Instructions: Take one tablet daily to help prevent abdominal ascites folic acid 1 mg tablet 1 mg PO DAILY Qty: 90 0RF Rx Instructions: Take one tablet daily Discontinued furosemide 40 mg tablet 40 mg PO DAILY Qty: 90 0RF Rx Instructions: Take one tablet daily to help prevent abdominal ascites Discharge Orders: Discharge Order (Routine); Ordered 01/22/25 Ordered By: Daisy Malhotra Diet: Low salt diet Activity on Discharge: As tolerated Stand Alone Forms: Patient Portal Discharge page Print Language: Frisian Other Ambulatory Orders: Basic Metabolic Panel (Routine) Timeframe: 1 Week Facility: [facility] - Location: Laboratory Ordered By: Daisy Malhotra Magnesium (Routine) Timeframe: 1 Week Facility: [facility] - Location: Laboratory Ordered By: Daisy Malhotra Care Plan Goals: liver health Health Concerns: ascites due to cirrhosis Plan of Treatment: low-sodium diet increase furosemide from 40 to 80 mg daily; continue spironolactone 100 mg daily check labs [BMP + magnesium] in 1 week follow up with Dr Quintanilla in 2-3 weeks avoid alcohol as you are successfully doing Please follow up with your primary care doctor within 1 week. Return to the hospital if you experience recurrent or worsening symptoms. Assessment: See Discharge Summary.
[2025-01-26 20:38] LABS: Alk.Phos Iso. Macrohepatic 19 % (<=0); Alk.Phos Isoenzymes Bone 22 % (28-66); Alk.Phos Isoenzymes Intest 0 % (1-24); Alk.Phos Isoenzymes Liver 59 % (25-69); Alk.Phos Isoenzymes Placental 0 % (<=0); Alk.Phos Isoenzymes Total 277 U/L (35-144)
== END 2025-01-22 11:29 | disposition home or self-care (01) | DRG 280 ==
LOC: HO.ED 16:32 → HO.EDOVER 17:20 → HO.S3 23:37
PROVIDERS: Emergency Medicine; Internal Medicine Gastroenterology; Admitting Provider Family Medicine; Emergency Provider Emergency Medicine; PCP Registered Nurse; Visit Provider Family Medicine
DX: K70.31 Alcoholic cirrhosis of liver with ascites (principal); F10.11 Alcohol abuse, in remission; G62.9 Polyneuropathy, unspecified; Z79.899 Other long term (current) drug therapy
CPT/HCPCS: 36415; 49083; 71260; 74177; 80053; 81001; 82042; 82140; 82150; 82248; 82945; 83615; 83690; 83735; 83986; 84080; 84157; 85025; 85610; 87070; 87073; 87086; 87205; 89051; 99221; 99285; J1650; J2003; J3411; Q9967

== ENCOUNTER → 2025-01-21 11:40 | Outpatient (BNV) | payer OTHER, SELFPAY | PROVIDERS: Emergency Provider Emergency Medicine; PCP Registered Nurse; Visit Provider Radiology Diagnostic Radiology | DX: R18.8 Other ascites (principal); R91.1 Solitary pulmonary nodule | CPT/HCPCS: 71260; 74177 ==

== ENCOUNTER → 2025-01-21 17:17 | Outpatient (BNV) | payer OTHER, SELFPAY | PROVIDERS: Admitting Provider Family Medicine; Emergency Provider Emergency Medicine; PCP Registered Nurse; Visit Provider Family Medicine | DX: R18.8 Other ascites (principal) | CPT/HCPCS: 99223 ==

== ENCOUNTER 2025-02-24 13:16 | Outpatient (REF) | payer OTHER, SELFPAY ==
[2025-02-24 14:56] LABS: Hematocrit 37.9 % (42.0-52.0); Hemoglobin 13.3 g/dl (14.0-18.0); Mean Corpuscular HGB Conc 35.1 g/dl (31.0-36.0); Mean Corpuscular Hemoglobin 30.1 pg (27.0-33.0); Mean Corpuscular Volume 85.7 fL (80.0-98.0); NRBC Abs Auto 0.000 X10*3/uL (0.0-0.012); NRBC Pct Auto 0.0 /100WBC (0.0-0.2); Platelet Count 482 X10*3/uL (160-400); Red Blood Count 4.42 X10*6/uL (4.60-5.80); White Blood Count 9.9 X10*3/uL (4.8-10.8)
[2025-02-24 15:09] LABS: INTERNATIONAL NORM RATIO 1.2 (0.9-1.1); Prothrombin Time 13.8 SEC (10.9-12.4)
[2025-02-24 15:36] LABS: Alanine Aminotransferase 24 U/L (0-40); Albumin Level 4.4 g/dL (3.5-5.0); Alkaline Phosphatase 565 U/L (39-117); Aspartate Amino Transferase 33 U/L (5-37); Total Protein 8.3 g/dL (6.5-8.0)
[2025-02-24 16:03] LABS: Folate 15.6 ng/mL (> or = 4.0); Vitamin B12 1233 pg/mL (200-900)
[2025-02-28 08:53] LABS: DNAds, Crithidia Antibody Negative (Negative)
[2025-03-02 16:47] LABS: FIB-ALT 19 U/L (9-46); FIB-Alpha-2-Macroglobulin 190 mg/dL (106-279); FIB-Apolipoprotein A1 153 mg/dL (94-176); FIB-GGT 794 U/L (3-85); FIB-Haptoglobin 372 mg/dL (43-212); FIB-Total Bilirubin 1.4 mg/dL (0.2-1.2); Liver Fibrosis Score 0.60; Liver Fibrosis Stage F3; Nec Inflam Act Grade A0; Nec Inflam Act Score 0.11
== END 2025-02-24 13:17 | disposition home or self-care (01) ==
LOC: HO.LAB 13:16
PROVIDERS: Absent Provider Internal Medicine Gastroenterology; PCP Internal Medicine; Visit Provider Registered Nurse
DX: G62.1 Alcoholic polyneuropathy (principal); Z11.59 Encounter for screening for other viral diseases; Z79.899 Other long term (current) drug therapy
CPT/HCPCS: 36415; 80076; 81596; 82607; 82746; 85027; 85610; 85652; 86140; 86255; 99202

== ENCOUNTER 2025-02-24 13:16 | Outpatient (AMB) | payer OTHER, SELFPAY ==
--- OUTSIDE RECORDS SUMMARY | 2025-02-23 09:15 | XMS_ITS ---
Author Organization [facility] Address [address] [place] [id number] Care Team Providers Care Board Operator Name Role Phone Lenka YOST, Jose De Jesus Primary Care Provider Meir Vázquez Jr Unavailable Zuri Simons MD Unavailable Unavailable Allergies No Known Allergies REASON FOR VISIT Patient presents today for cirrhosis Medications Medication SIG (Take, Route, Fr equency, Duration) Notes Start Date End Date Status traZODone HCl 50 MG 1 tablet at bedtime as needed Orally Once a day for 30 day(s) 02/23/2025 Active Folic Acid 1 MG 1 tablet Orally Once a day Active Furosemide 40 MG 1 tablet Orally Once a day Active Spironolactone 100 MG 1 tablet Orally Once a day Active Multi Vitamin - 1 tablet Orally Once a day Active Social History Tobacco Use: Social History Observation Description Date Details (start date - stop date) Never Smoker NA - NA Tobacco Control (Standard) Question Answer Notes Tobacco use: Nonsmoker AUDIT-C (Standard) Question Answer Notes Did you have a drink containing alcohol in the p ast year? No Points 0 Interpretation Negative Problems Problem Type SNOMED Code ICD Code Onset Dates Problem Status W/U Status Risk Notes Problem Hepatic cyst (69737656) Hepatic cyst (K76.89) Active confirmed Vital Signs Temperature 97.7 degrees Fahrenheit 02/24/20 25 Blood pressure systolic 001 mm Hg 02/24/20 25 Blood pressure diastolic 01 mm Hg 025 Height 73 in 02/23/2025 Weight 146.8 lbs 02/23/2025 BMI 19.37 kg/m2 02/23/2025 Encounters Encounter Location Date Provider Diagnosis [facility] [address] [place] [phone] 02/23/2025 Meir Quintanilla Jr Hepatic cyst K76.89 ; Ascites due to alcoholic cirrhosis K70.31 and Encounter for screening colonoscopy Z12.11 Assessments Encounter Date Diagnosis (ICD Code) Assessment Notes Treatment Notes Treatment Clinical Notes Section Notes 02/23/2025 Hepatic cyst (ICD-10 - K76.89) j 02/23/2025 Ascites due to alcoholic cirrhosis (ICD-10 - K70.31) j 02/23/2025 Encounter for screening colonoscopy (ICD-10 - Z12.11) j Plan Of Treatment Pending Test Test Name Order Date LIVER PROFILE 02/23/2025 CBC w/o DIFF 02/23/2025 PROTHROMBIN TIME (PT, INR) 02/23/2025 Liver Fibrosis Pnl 02/23/2025 Future Test Test Name Order Date UPPER GI ENDOSCOPY 02/23/2025 COLONOSCOPY 02/23/2025 Next Appt Details Provider Name:Meir Gaona lonnie , 03/20/2025 11:40:00 AM, [address] [place] [address], [phone], Progress Notes * TRACEY CARDOZAOB: 7 (59 yo M)Acc No.[id number]:02/23/2025 Progress Notes Patient: MERCEDES JACOBS Provider: Katie Quintanilla MD :1965 A ge:59 Y S ex:Male Date:02/23/2025 Address:[address] [place], [place] [id number] Pcp:Jose De Jesus Og MD Subjective: * Chief Complaints: * 1 . Patient presents today for cirrhosis. * Medical History: M edical History Verified. * Hospitalization/Major Diagno stic Procedure: a scites drained fluid from stomach , ascites drained fluid from stomach . * Family History: F ather: alive. M other: , diagnosed with Diabetes. No family history of colon cancer or liver cancer. * Social History: T obacco Use: T obacco Control (Standard) T obacco use: N onsmoker. M iscellaneous: M arital status: . Occupation: unemployed. D rug/Alcohol: A CONRAD-C (Standard) D id you have a drink containing alcohol in the past year? N o,?Points 0 , I nterpretation N egative. * Medications: T aking Multi Vitamin - Tablet 1 tablet Orally Once a day , Taking Spironolactone 100 MG Tablet 1 tablet Orally Once a day , Taking Furosemide 40 MG Tablet 1 tablet Orally Once a day , Taking Folic Acid 1 MG Tablet 1 tablet Orally Once a day , Taking traZODone HCl 50 MG Tablet 1 tablet at bedtime as needed Orally Once a day , Medication List reviewed and reconciled with the patient * Allergies: N .K.D.A. Objective: * Vitals: W t:146.8lbs, Ht:73in, BMI:19.37Index, BP:001/01mm Hg, Temp:97.7, Ht-cm: 185.42, Wt-k.59. Assessment: * Assessment: 1. H epatic cyst - K76.89 (Primary) 2 . A scites due to alcoholic cirrhosis - K70.31 3 . E ncounter for screening colonoscopy - Z12.11 j Plan: * Treatment: ?Procedure: COLONOSCOPY (Ordered for 02/23/2025)* sched for 03/20/25 at 11:40 ammacmiralax 2.?Ascites due to alcoholic cirrhosis?LAB: LIVER PROFILE ?LAB: CBC w/o DIFF ?LAB: PROTHROMBIN TIME (PT, INR) ?LAB: Liver Fibrosis Pnl ?Procedure: UPPER GI ENDOSCOPY (Ordered for 02/23/2025)* sched for 03/20/25 at 11:40 ammac ?Procedure: COLONOSCOPY (Ordered for 02/23/2025)* sched for 03/20/25 at 11:40 ammacmiralax 3.?Encounter for screening colonoscopy?LAB: LIVER PROFILE ?LAB: CBC w/o DIFF ?LAB: PROTHROMBIN TIME (PT, INR) ?LAB: Liver Fibrosis Pnl ?Procedure: UPPER GI ENDOSCOPY (Ordered for 02/23/2025)* sched for 03/20/25 at 11:40 ammac ?Procedure: COLONOSCOPY (Ordered for 02/23/2025)* sched for 03/20/25 at 11:40 ammacmiralax * * The named appointment provid er may or may not be the originator of this progress note, and it is not deemed complete until electronically signed by the appointment provider. Sign off status: Pending * Provider: Katie Quintanilla MD Date: 02/23/2025 Generated for Sha perera/Anthony/Zenobiaitting on: 02/24/2025 02:34 PM EDT
--- NOTE | 2025-02-24 13:20 | A.OFFVIS_ITS ---
Intake Visit Reasons: ER visit, New diagnosis: autoimmune disorder Accompanied by: Brother Allergies No Known Allergies Allergy (Verified 02/24/25 13:29) Medication List - Last Reconciled 02/24/25 by Keturah Fang CNP cyanocobalamin (vitamin B-12) (Vitamin B-12) 500 mcg PO DAILY folic acid 1 mg PO DAILY furosemide 80 mg PO DAILY multivitamin 1 tab PO DAILY spironolactone 100 mg PO DAILY trazodone 50 mg PO BEDTIME PRN HPI Comments Details: 59-year-old man with history of alcohol use disorder in the past, who stopped drinking around 09/2024, and cirrhosis of the liver who is here for symptoms of numbness, tingling, and pain in legs that started around 10/2024. Numbness, tingling, and pain, usually burning-type, extend from feet to knees. He occasionally gets some sharp pains. Pain is worse at night and disrupts sleep. Balance was not so good and he was using walker, no recent falls. [facility] Medical History (Updated 02/24/25 @ 13:40 by Keturah Fang CNP) Peripheral neuropathy Family History (Updated 02/24/25 @ 13:31 by Keturah Fang CNP) Father Bladder cancer Non-Hodgkin lymphoma Mother Bladder cancer Diabetes Lung cancer Social History Household Members: Spouse Housing: House Do you presently have visiting nurse or other home services: No Alcohol intake: former Patient Tobacco Use Status: Never used Tobacco service: No Review of Systems Const Denies chills, Denies daytime sleepiness, Reports difficulty sleeping, Reports fatigue, Denies fever(s), Denies frequent falls, Denies headache(s), Denies increased appetite, Denies poor appetite, Denies snoring, Reports weakness, Denies weight gain and Reports weight loss Eyes Denies blurry vision, Denies diplopia and Denies loss of vision ENT Denies vertigo, Denies dizziness, Denies dry mouth, Denies otalgia, Denies headache(s), Denies hearing loss, Denies epistaxis, Denies nasal congestion, Denies neck pain, Denies tinnitus, Denies sinus pain and Denies sore throat Card Denies chest pain at rest, Denies chest pain with activity, Denies syncope, D enies leg edema, Denies palpitations, Denies dyspnea and Denies dyspnea on exertion Resp Reports cough, Denies dyspnea, Denies dyspnea on exertion and Denies snoring GI Reports abdominal pain, Denies constipation, Denies heartburn, Denies diarrhea, Denies nausea and Denies vomiting Reports urinary frequency, Denies urinary incontinence and Denies urinary urgency Musc Reports abnormal gait, Denies back pain, Denies myalgias, Reports arthralgias, Reports muscle cramps, Denies neck pain, Reports numbness, Denies stiffness and Reports tingling Skin/Breast Denies breast mass, Reports pruritus, Denies nipple discharge and Denies rash Neuro Reports abnormal gait, Denies vertigo, Denies dizziness, Denies syncope, Denies frequent falls, Denies headache(s), Denies lack of coordination, Denies loss of vision, Denies memory loss, Reports numbness, Denies Other visual disturbances, Denies restless legs, Denies seizure-like activity, Reports tingling, Denies paresthesias, Denies tremor(s) and Reports weakness Psych Denies anxiety, Denies depression, Denies memory loss, Denies visual hallucinations and Denies hallucinations Endo Denies cold intolerance, Reports fatigue, Denies heat intolerance, Denies polydipsia, Denies polyuria and Denies palpitations Fitz/Lymph Denies easy bleeding and Denies easy bruising Physical Exam Const Other: General Appearance:? normal, in no acute distress. Head:? normocephalic, atraumatic. Eyes:? sclera non-icteric, conjunctiva clear. Ears:? auditory canal clear, tympanic membrane intact, clear. Nose:? no lesions. Oral Cavity:? gums normal, mucosa moist, no lesions. Throat:? clear. Neck/Thyroid:? no cervical lymphadenopathy. Skin:? no rashes, no significant birthmarks. Heart:? S1, S2 normal, no murmurs. Lungs:? clear anteriorly and posteriorly. Chest:? no gross rib deformity, clear to auscultation. Extremities:? no edema. Psych:? alert, oriented, cognitive function intact, cooperative with exam. Neuro Other: Mental Status:?Normal attention, orientation, memory and affect.? Cranial Nerves:?Pupils are equal, round and reactive to light. External occular muscles are intact. Visual chiang are full. Face is symmetrical. Facial sensations are normal. Tongue is midline. Palate elevates symmetrically. Shoulder shrugging is normal. Hearing to bedside conversation is normal. Motor Examination:?DTRs trace to absent. Sensory Exam:?Impaired joint sensation. Vibratory sensation intact. Coordination:?No ataxia,?no titubation.? Gait Exam: With walker. Cerebellar Signs:?Ugwewj-uc-nybw is okay. Extrapyramidal System:?No tremor, rigidity with normal facial expressions.? Pronator Drift:?Not present.? Involuntary Movements:?No tremors seen.? Speech:?Normal.? Results Reviewed Results Reviewed: Laboratory Tests 11/14/24 01/22/25 07:17 06:27 WBC 6.2 RBC 4.12 L Hgb 12.7 L Hct 36.8 L MCV 89.3 MCH 30.8 MCHC 34.5 RDW 13.5 Plt Count 229 D MPV 10.7 Immature Gran % (Auto) 0.5 H Neut % (Auto) 65.1 Lymph % (Auto) 18.8 L [place] % (Auto) 11.1 H Eos % (Auto) 3.5 Baso % (Auto) 1.0 Lymph # (Auto) 1.2 [place] # (Auto) 0.7 Eos # (Auto) 0.2 Baso # (Auto) 0.1 Abs Immat Gran (auto) 0.03 Absolute Neuts (auto) 4.1 Absolute Nucleated RBC 0.000 Nucleated RBC % (auto) 0.0 Sodium 134 L Potassium 4.2 Chloride 101 Carbon Dioxide 26 Anion Gap 11 L BUN 15 Creatinine 0.85 Estim Creat Clear Calc 96.0 Estimated GFR > 60 Random Glucose 103 Calcium 9.7 D Total Bilirubin 0.8 AST 30 ALT 9 Alkaline Phosphatase 277 H Alk Phos Iso-Intestine 0 L Alk Phos Iso-Bone 22 L Alk Phos Iso-Liver 59 Alk Phos Iso-Placenta 0 Alk Phos Macrohepat Isoenz 19 H ALP Isoenzymes Interp TNP Total Protein 6.5 Albumin 3.5 JESSICA Screen POSITIVE A JESSICA Titer 1:320 H JESSICA Titer 2 TNP JESSICA Titer 3 TNP JESSICA Pattern Nuclear, Speckled A JESSICA Pattern 2 TNP JESSICA Pattern 3 TNP Anti-Mitochondrial Ab NEGATIVE Anti-Smooth Muscle Ab <20 CT brain [place] [facility] [place]: Mild diffuse cerebra atrophy, min microvascular ischemic changes Assessment & Plan Assessment & Plan (1) Peripheral neuropathy: Code(s): G62.9 - Polyneuropathy, unspecified Category: Medical Qualifiers: Peripheral neuropathy type: polyneuropathy, alcohol-induced Qualified Code(s): G62.1 - Alcoholic polyneuropathy Plan: CT/MRI and lab results reviewed. Discussed likelihood of alcohol-related peripheral neuropathy. Reviewed labs ordered. NCV/EMG LE ordered. Start gabapentin 300mg 1 capsule at bedtime, use/side effects reviewed. Continue to use walker for additional support. Plan Exam, findings, and plan reviewed with Dr. Woody. 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
--- OUTSIDE RECORDS SUMMARY | 2025-02-24 14:35 | XMS_ITS | Patient Health Record ---
Author Organization [facility] Address [address] [place] [address] Care Team Providers Care Stay Cutter Name Role Phone Jose De Jesus Og MD Primary Care Provider Meir Vázquez Jr Unavailable [phone] Zuri Simons MD Unavailable Unavailable Allergies No Known Allergies Results Component Value Reference Range Notes Complete Blood Count Auto Di ff Reviewed date:11/14/2024 03:37:46 PM Interpretation: Performing Lab:[facility], [address] [place] [phone] Notes/Report: White Blood Count 9.9 4.8-10.8 X10*3/uL [...] gy Reviewed date:11/14/2024 08:10:12 AM Interpretation: Performing Lab:[facility], [address] [place] [phone] Notes/Report: Hold Lav - Possible Hematology SEE NOTE Specimen will be held untested for 8 hours. Call Hematology if testing is desired. Liver Panel Reviewed date:11/14/2024 03:38:45 PM Interpretation: Performing Lab:[facility], [address] [place] [phone] Notes/Report: Bilirubin Total 2.3 0.0-1.0 mg/dL Bilirubin Direct 1.6 0.0-0.5 mg/dL Aspartate Amino Transferase 68 5-37 U/L Alanine Aminotransferase 13 0-40 U/L Total Protein 6.7 6.5-8.0 g/dL Albumin Level 2.7 3.5-5.0 g/dL Alkaline Phosphatase 218 39-117 U/L Basic Metabolic Panel Reviewed date:11/14/2024 03:38:37 PM Interpretation: Performing Lab:[facility], [address] [place] [phone] Notes/Report: Sodium 133 135-145 mmol/L Potassium 4.2 [...] Magnesium Reviewed date:11/14/2024 03:38:31 PM Interpretation: Performing Lab:[facility], [address] [place] [phone] Notes/Report: Magnesium 1.6 1.6-2.6 mg/dL IRON PROFILE Reviewed date:11/14/2024 03:38:11 PM Interpretation: Performing Lab:[facility], [address] [place] [phone] Notes/Report: Iron 50 45-160 mcg/dL Total Iron Binding Capacity 141 228-428 mcg/dL Percent Iron Saturation 35 15-50 % Unsaturated Iron Binding 91 Ferritin Reviewed date:11/14/2024 03:38:06 PM Interpretation: Performing Lab:[facility], [address] [place] [phone] Notes/Report: Ferritin 506 20-250 ng/mL Liver Fibrosis Pnl Reviewed date:11/26/2024 07:25:25 AM Interpretation: Performing Lab:[facility], [address] [place] [phone] Notes/Report: Liver Fibrosis Score 0.86 Liver Fibrosis [...] a>0.62 and a<=1.00 : A3 (severe activity) ASM-Svqcb-0-Macroglobulin 195 106-279 mg/dL FIB-Haptoglobin 155 43-212 mg/dL FIB-Apolipoprotein A1 74 94-176 mg/dL FIB-Total Bilirubin 2.3 0.2-1.2 mg/dL FIB-GGT 303 3-85 U/L FIB-ALT 14 9-46 U/L Reference ID [id number] Footnote SEE NOTE The reliability of results is dependent on compliance with the preanalytical and analytical conditions recommended by [employer]. The tests have to be deferred for: [...] The performance characteristics have been determined by [facility] [place]. It has not been cleared or approved by the U.S. Food and Drug Administration. Performance characteristics refer to the analytical performance of the test. [employer], [employer], the associated logo, [facility] and all associated [employer] villa are the registered trademarks of [employer]. All third constitution party villa - (R) and (TM) - are the property of their respective owners. (C) 1394-9995 [employer]. All rights reserved. THIS TEST WAS PERFORMED AT: [employer] [facility] [address] [place] [address] LASHANDA DUMAS MD,PHD,RUSSEL JESSICA Reflex Titer and Pattern Reviewed date:11/25/2024 02:06:52 PM Interpretation: Performing Lab:[facility], [address] [place] [phone] Notes/Report: Anti Nuclear Antibody Screen POSITIVE NEGATIVE JESSICA IFA is a first line screen for detecting the presence of up to approximately 150 autoantibodies in various autoimmune diseases. A positive JESSICA IFA result is suggestive of autoimmune disease and reflexes to titer and pattern. Further laboratory testing may be considered if clinically indicated. For additional information, please refer to http://education.MedAptus/faq/XHT730 (This link is being provided for informational/ educational purposes only.) Anti Nuclear Antibody Titer 1:320 Reference Range <1:40 Negative 1:40-1:80 Low Antibody Level >1:80 Elevated Antibody Level Anti Nuclear Antibody Pattern Nuclear, Speckled Speckled pattern is associated with mixed connective tissue disease (MCTD), systemic lupus erythematosus (SLE), Sjogren's syndrome, dermatomyositis, and systemic sclerosis/polymyositis overlap. AC-2,4,5,29: Speckled International Consensus on JESSICA Patterns (https://doi.org/10.1515 /kmgf-1060-9902) THIS TEST WAS PERFORMED AT: [facility] [address] [place] [phone] GWENDOLYN VILLATORO MD JESSICA Titer 2 TNP JESSICA Pattern 2 TNP JESSICA Titer 3 TNP JESSICA Pattern 3 TNP Mitochondrial Antibody Reviewed date:11/25/2024 02:07:24 PM Interpretation: Performing Lab:[facility], [address] [place] [phone] Notes/Report: Mitochondrial Antibodies NEGATIVE NEGATIVE THIS TEST WAS PERFORMED AT: [facility] [address] [place] [phone] GWENDOLYN VILLATORO MD Mitochondrial Ab Titer TNP Smooth Muscle Antibody Reviewed date:11/25/2024 02:07:08 PM Interpretation: Performing Lab:[facility], [address] [place] [phone] Notes/Report: Smooth Muscle Antibody <20 <20 U [...] type 1. THIS TEST WAS PERFORMED AT: [employer] [address] [address] TALISHA MARTEL MD,PHD US abdomen limited Reviewed date:11/14/2024 03:37:41 PM Interpretation: Performing Lab: Notes/Report: [address] [address] Ultrasound Report Signed Patient: Mickey Cardoza MR#: [id number] : 1965 Acct:[id number] Age/Sex: 59 / M ADM Date: 11/12/24 Loc: [facility] 460-[address]: Bradley BOWLING Ordering Physician: Meir Quintanilla MD Date of Service: 11/14/24 Procedure(s): US abdomen limited Accession Number(s): [id number] cc: Meir Quintanilla MD; Physician,None EXAMINATION: US ABDOMEN LIMITED [...] 11/14/24 1146 DD/ 1012 TD/TT: 11/14/24 1014 Beam Doffer: DEBBIE Alkaline Phosphatase Isoenzrandy mi Reviewed date:01/28/2025 08:45:50 AM Interpretation: Performing Lab:[facility], [address] [place] [phone] Notes/Report: Alk.Phos Isoenzymes Total 277 35-144 U/L [...] 31:74-77, 1978. THIS TEST WAS PERFORMED AT: [employer] [address] TALISHA MARTEL MD,PHD Alk.Phos Isoenzymes Interp TNP [...] Notes Problem Ascites due to alcoholic cirrhosis (3981912459024 104) Ascites due to alcoholic cirrhosis (K70.31) Active confirmed Problem Hepatic cyst (26344286) Hepatic cyst (K76.89) Active confirmed Vital Signs Temperature 97.7 degrees Fahrenheit 02/23/2025 Blood pressure diastolic 01 mm Hg 02/23/2025 Height 73 in 02/23/2025 Blood pressure systolic 001 mm Hg 02/23/2025 Weight 146.8 lbs 02/23/2025 BMI 19.37 kg/m2 02/23/2025 Encounters Encounter Location Date Provider Diagnosis [facility] [address] [place] [phone] 02/23/2025 Meir Quintanilla Jr Hepatic cyst K76.89 ; Ascites due to alcoholic cirrhosis K70.31 and Encounter for screening colonoscopy Z12.11 [facility] [address] [place] [phone] 11/25/2024 Meir Quintanilla Jr [facility] [address] [place] [phone] 01/23/2025 Meir Quintanilla Jr Assessments Encounter Date [...] Name:Meir fleming Jr, 03/20/2025 11:40:00 AM, [address] [facility] , [place], [place], [phone], Insurance Providers Payer Name Payer Address Payer Phone Subscriber Number Group Number Insured Name Patient Relationship to Insured Coverage Start Date Coverage End Date [facility] [address] [facility] [place] [phone] [id number] MICKEY CARDOZA Self - patient is the insured MEDICAID OF [facility] [address] [place] [phone] [id number] MICKEY CARDOZA Self - patient is the insured Medical (General) History Hospitalization History Reason Date(Month/Year) ascites drained fluid from stomach ascites drained fluid from stomach
--- OUTSIDE RECORDS SUMMARY | 2025-02-24 14:35 | XMS_ITS | Clinical Summary ---
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 Name Role Phone Unavailable Primary Care Provider Unavailabl e Encounters Date Type Department Care Team Description 01/22/2025 Orders Only [facility] [address] [place] [phone] Homehealth, Interface ProviderMD from Last 3 Months [...] file Medical Devices Not on file Insurance [facility] [employer] [facility] ACO [facility] ACO [facility] PARTNER[facility] ACO [facility] [employer] ACO Additional Source Comments The information contained in this document represents components of the legal health record. It is not the complete legal health record.[facility]
== END 2025-02-24 14:09 | disposition home or self-care (01) ==
LOC: HO.HSM 13:17
PROVIDERS: Visit Provider Registered Nurse
DX: G62.1 Alcoholic polyneuropathy (principal)
CPT/HCPCS: 99204

== ENCOUNTER 2025-03-04 13:49 | Outpatient (REF) | payer OTHER, SELFPAY ==
--- NOTE | 2025-03-04 13:55 | EMG_ITS ---
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 Bilateral superficial peroneal and sural sensory studies were performed and EMG needle examination was performed. There was mild delay of distal latency of peroneal stimulation while moderate of tibial stimulation with moderate reduction of amplitude seen both tibial and peroneal responses with conduction velocities falling in mid to high 20s me to per sec. Superficial peroneal and sural responses were absent. F responses were delayed an H reflexes were absent. Impression: Moderately severe sensory and motor peripheral neuropathy with features of demyelination and axonal loss. Further evaluation for chronic inflammatory demyelinating polyneuropathy might be in order. AP
== END 2025-03-04 13:50 | disposition home or self-care (01) ==
LOC: HO.NEURO 13:49
PROVIDERS: PCP Internal Medicine; Referring Provider Registered Nurse; Visit Provider Registered Nurse
DX: G62.1 Alcoholic polyneuropathy (principal)
CPT/HCPCS: 95886; 95911

== ENCOUNTER → 2025-03-04 13:55 | Outpatient (BNV) | payer OTHER, SELFPAY | PROVIDERS: PCP Internal Medicine; Referring Provider Registered Nurse; Visit Provider Psychiatry & Neurology Neurology | DX: G62.89 Other specified polyneuropathies (principal) | CPT/HCPCS: 95886; 95911 ==

== ENCOUNTER 2025-03-20 06:27 | Day surgery (SDC) | payer OTHER, SELFPAY ==
--- OUTSIDE RECORDS SUMMARY | 2025-02-23 16:23 | XMS_ITS | Clinical Summary ---
Author Organization [facility] Address [address] [phone] Phone Care Team Providers Care Masking Machine Feeder Name Role Phone Unavailable Primary Care Provider Unavailabl e Encounters Date Type Department Care Team Description 01/22/2025 Orders Only [facility] [address] [place] [id number] Homehealth, Interface ProviderMD from Last 3 Months Social History Tobacco Use Types Packs/Day Years Used Date Smoking Tobacco: Never Assessed Education Answer Date Recorded Are you interested in more education? Not on blanche e 01/23/2025 Are you concerned about learning? Not on file 01/23/2025 No 01/23/2025 No 01/23/2025 Digital Access Answer Date Recorded No 01/23/2025 No 01/23/2025 Reliable internet access at home? Not on file 01/23/2025 Device with a working camera? Not on file Sex and Gender Information Value Date Recorded Sex Assigned at Not on file Legal Sex Male 9:53 AM EDT Gender Identity Not on file Sexual Orientation Not on file Plan of Treatment Not on file Medical Devices Not on file Insurance [facility] [employer] [facility] [employer] [facility] [employer] Additional Source Comments The information contained in this document represents components of the legal health record. It is not the complete legal health record.[facility]
--- OUTSIDE RECORDS SUMMARY | 2025-02-23 16:24 | XMS_ITS | Patient Health Record ---
Author Organization [facility] Address [address] [place] [address] Care Team Providers Care Program Manager Transportation Name Role Phone Jose De Jesus Og MD Primary Care Provider Meir Vázquez Jr Unavailable Zuri Simons MD Unavailable Unavailable Allergies No Known Allergies Results Component Value Reference Range Notes Complete Blood Count Auto Di ff Reviewed date:11/14/2024 03:37:46 PM Interpretation: Performing Lab:[facility], [address] [place] [phone] Notes/Report: White Blood Count 9.9 4.8-10.8 X10*3/uL Red Blood Count 3.71 4.60-5.80 X10*6/uL Hemoglobin 12.5 14.0-18.0 g/dl Hematocrit 37.0 42.0-52.0 % Mean Corpuscular Volume 99.7 80.0-98.0 fL Mean Corpuscular Hemoglobin 33.7 27.0-33.0 pg Mean Corpuscular HGB Conc 33.8 31.0-36.0 g/dl Red Cell Distribution Width 14.4 11.0-16.0 % Platelet Count 388 160-400 X10*3/uL Mean Platelet Volume 10.3 9.4-12.4 fL Neutrophils Percent Auto 74.4 45-73 % Imm Gran Pct Auto 0.3 0.0-0.4 % Lymphocytes Percent Auto 14.5 20-40 % Monocytes Percent Auto 8.5 2-11 % Eosinophils Percent Auto 1.7 0-4 % Basophils Percent Auto 0.6 0-2 % NRBC Pct Auto 0.0 0.0-0.2 /100WBC Neutrophils Absolute Auto 7.4 2.0-8.3 x10*3/u L Imm Gran Abs Auto 0.03 0.00-0.03 X10*3/uL Lymphocytes Absolute Auto 1.4 1.2-4.9 X10*3/u L Monocytes Absolute Auto 0.8 0.1-1.2 X10*3/uL Eosinophils Absolute Auto 0.2 0.0-0.4 X10*3/u L Basophils Absolute Auto 0.1 0.0-0.2 X10*3/uL NRBC Abs Auto 0.000 0.0-0.012 X10*3/uL Hold Lav - Possible Hematolo gy Reviewed date:11/14/2024 08:10:12 AM Interpretation: Performing Lab:[facility], [address] [place] [phone] Notes/Report: Hold Lav - Possible Hematology SEE NOTE Specimen will be held untested for 8 hours. Call Hematology if testing is desired. Liver Panel Reviewed date:11/14/2024 03:38:45 PM Interpretation: Performing Lab:[facility], [address] [place] [phone] Notes/Report: Bilirubin Total 2.3 0.0-1.0 mg/dL Bilirubin Direct 1.6 0.0-0.5 mg/dL Aspartate Amino Transferase 68 5-37 U/L Alanine Aminotransferase 13 0-40 U/L Total Protein 6.7 6.5-8.0 g/dL Albumin Level 2.7 3.5-5.0 g/dL Alkaline Phosphatase 218 39-117 U/L Basic Metabolic Panel Reviewed date:11/14/2024 03:38:37 PM Interpretation: Performing Lab:[facility], [address] [place] [phone] Notes/Report: Sodium 133 135-145 mmol/L Potassium 4.2 3.3-5.1 mmol/L Chloride 100 96-108 mmol/L Carbon Dioxide 26 22-29 mmol/L Anion Gap 11 12-20 Blood Urea Nitrogen 5 9-16 mg/dL Creatinine 0.63 0.5-1.4 mg/dL Creatinine Clr Calc Pharmacy 140.2 eGFR (calculated from the MDRD study equation) and eCrCl (calculated from the Cockcroft-Gault equation) are based on different parameters and may not yield comparable results. If eCrCl result is absurd, please check patient's height/weight. Estimated Glomerular Filt Rate > 60 Chronic Kidney Disease: Estimated GFR < 60 mL/min/1.73m2 Severe Kidney Disease: Estimated GFR < 15 mL/min/1.73m2 Glucose Random 122 60-115 mg/dL Calcium 8.5 8.4-10.2 mg/dL Magnesium Reviewed date:11/14/2024 03:38:31 PM Interpretation: Performing Lab:[facility], [address] [place] [phone] Notes/Report: Magnesium 1.6 1.6-2.6 mg/dL IRON PROFILE Reviewed date:11/14/2024 03:38:11 PM Interpretation: Performing Lab:[facility], [address] [place] [phone] Notes/Report: Iron 50 45-160 mcg/dL Total Iron Binding Capacity 141 228-428 mcg/dL Percent Iron Saturation 35 15-50 % Unsaturated Iron Binding 91 Ferritin Reviewed date:11/14/2024 03:38:06 PM Interpretation: Performing Lab:[facility], [address] [place] [phone] Notes/Report: Ferritin 506 20-250 ng/mL Liver Fibrosis Pnl Reviewed date:11/26/2024 07:25:25 AM Interpretation: Performing Lab:[facility], [address] [place] [phone] Notes/Report: Liver Fibrosis Score 0.86 Liver Fibrosis Stage F4 Liver Fibrosis Interpretation SEE NOTE severe fibrosis Fibro Test Score (f) Metavir Score f>=0 and f<=0.21 : F0 (no fibrosis) f>0.21 and f<=0.27 : F0-F1 (no fibrosis) f>0.27 and f<=0.31 : F1 (minimal fibrosis) f>0.31 and f<=0.48 : F1-F2 (minimal fibrosis) f>0.48 and f<=0.58 : F2 (moderate fibrosis) f>0.58 and f<=0.72 : F3 (advanced fibrosis) f>0.72 and f<=0.74 : F3-F4 (advanced fibrosis) f>0.74 and f<=1.00 : F4 (severe fibrosis) Nec Inflam Act Score 0.10 Nec Inflam Act Grade A0 Nec Inflam Act Interpretation SEE NOTE no activity ActiTest Score (a) Metavir Score a>=0 and a<=0.17 : A0 (no activity) a>0.17 and a<=0.29 : A0-A1 (no activity) a>0.29 and a<=0.36 : A1 (minimal activity) a>0.36 and a<=0.52 : A1-A2 (minimal activity) a>0.52 and a<=0.60 : A2 (significant activity) a>0.60 and a<=0.62 : A2-A3 (significant activity) a>0.62 and a<=1.00 : A3 (severe activity) VPT-Txhhx-4-Macroglobulin 195 106-279 mg/dL FIB-Haptoglobin 155 43-212 mg/dL FIB-Apolipoprotein A1 74 94-176 mg/dL FIB-Total Bilirubin 2.3 0.2-1.2 mg/dL FIB-GGT 303 3-85 U/L FIB-ALT 14 9-46 U/L Reference ID [id number] Footnote SEE NOTE The reliability of results is dependent on compliance with the preanalytical and analytical conditions recommended by [employer]. The tests have to be deferred for: acute hemolysis, acute hepatitis, acute inflammation, extra hepatic cholestasis. The advice of a specialist should be sought for interpretation in chronic hemolysis and Gilbert's syndrome. The test interpretation is not validated in liver transplant patients. Isolated extreme values of one of the components should lead to caution in interpreting the results. In case of discordance between a biopsy result and a test, it is recommended to seek the advice of a specialist. The causes of these discordances could be due to a flaw of the test or to a flaw in the biopsy: i.e. a liver biopsy has a 33% variability rate for one fibrosis stage. FibroTest is interpretable for chronic hepatitis B and C, alcoholic and non alcoholic steatosis. ActiTest is interpretable for chronic hepatitis B and C. The performance characteristics have been determined by [employer] [facility], [place]. It has not been cleared or approved by the U.S. Food and Drug Administration. Performance characteristics refer to the analytical performance of the test. [employer], [employer], the associated logo, [facility] and all associated [employer] villa are the registered trademarks of [employer]. All third constitution party villa - (R) and (TM) - are the property of their respective owners. (C) 7828-8826 [employer]. All rights reserved. THIS TEST WAS PERFORMED AT: [facility] [place] [address] [place] [address] LASHANDA DUMAS MD,PHD,RUSSEL JESSICA Reflex Titer and Pattern Reviewed date:11/25/2024 02:06:52 PM Interpretation: Performing Lab:[facility], [address] [place] [phone] Notes/Report: Anti Nuclear Antibody Screen POSITIVE NEGATIVE JESSICA IFA is a first line screen for detecting the presence of up to approximately 150 autoantibodies in various autoimmune diseases. A positive JESSICA IFA result is suggestive of autoimmune disease and reflexes to titer and pattern. Further laboratory testing may be considered if clinically indicated. For additional information, please refer to http://education.Join The Players/faq/QMW325 (This link is being provided for informational/ educational purposes only.) Anti Nuclear Antibody Titer 1:320 Reference Range <1:40 Negative 1:40-1:80 Low Antibody Level >1:80 Elevated Antibody Level Anti Nuclear Antibody Pattern Nuclear, Speckled Speckled pattern is associated with mixed connective tissue disease (MCTD), systemic lupus erythematosus (SLE), Sjogren's syndrome, dermatomyositis, and systemic sclerosis/polymyositis overlap. AC-2,4,5,29: Speckled International Consensus on JESSICA Patterns (https://doi.org/10.1515 /cbmi-7862-4288) THIS TEST WAS PERFORMED AT: [facility] [address] [place] [phone] GWENDOLYN VILLATORO MD JESSICA Titer 2 TNP JESSICA Pattern 2 TNP JESSICA Titer 3 TNP JESSICA Pattern 3 TNP Mitochondrial Antibody Reviewed date:11/25/2024 02:07:24 PM Interpretation: Performing Lab:[facility], [address] [place] [phone] Notes/Report: Mitochondrial Antibodies NEGATIVE NEGATIVE THIS TEST WAS PERFORMED AT: [facility] [address] [place] [phone] GWENDOLYN VILLATORO MD Mitochondrial Ab Titer TNP Smooth Muscle Antibody Reviewed date:11/25/2024 02:07:08 PM Interpretation: Performing Lab:[facility], [address] [place] [phone] Notes/Report: Smooth Muscle Antibody <20 <20 U Reference Range: <20 U: Negative >or=20 U: Positive Antibodies recognizing actin are the main component of smooth muscle antibodies associated with auto- immune liver disease. Actin antibodies are found in approximately 75% of patients with autoimmune hepatitis (AIH) type 1, approximately 65% of patients with autoimmune cholangitis, approximately 30% of patients with primary biliary cirrhosis and approximately 2% of healthy controls. High values are closely correlated with AIH type 1. THIS TEST WAS PERFORMED AT: [facility] [address] [address] TALISHA MARTEL MD,PHD US abdomen limited Reviewed date:11/14/2024 03:37:41 PM Interpretation: Performing Lab: Notes/Report: [address] [address] Ultrasound Report Signed Patient: Mickey Cardoza MR#: [id number] : 1965 Acct:[id number] Age/Sex: 59 / M ADM Date: 11/12/24 Loc: [facility] 460-[address]: Bradley BOWLING Ordering Physician: Meir Quintanilla MD Date of Service: 11/14/24 Procedure(s): US abdomen limited Accession Number(s): [id number] cc: eMir Quintanilla MD; Physician,None EXAMINATION: US ABDOMEN LIMITED CLINICAL INFORMATION: Ascites. COMPARISON: None available. TECHNIQUE: Limited imaging of abdomen was performed. FINDINGS: Limited imaging of the abdomen reveals small amount of fluid not enough for therapeutic purposes. Patient was recently drained in the ER 2 days ago. US/US abdomen limited IMPRESSION: Small amount of free fluid in pelvis not enough for therapeutic paracentesis. The paracentesis has been canceled Electronically signed by: Oli Ambriz MD 11/14/2024 11:46 AM EDT Dictated By: Oli Ambriz MD Signed By: <Electronically signed by Oli Ambriz MD in OV> 11/14/24 1146 DD/ 1012 TD/TT: 11/14/24 1014 Wheel Installer: DEBBIE Alkaline Phosphatase Isoenzrandy de Reviewed date:01/28/2025 08:45:50 AM Interpretation: Performing Lab:[facility], [address] [place] [phone] Notes/Report: Alk.Phos Isoenzymes Total 277 35-144 U/L Alk.Phos Isoenzymes Intest 0 1-24 % Alk.Phos Isoenzymes Bone 22 28-66 % Alk.Phos Isoenzymes Liver 59 25-69 % Alk.Phos Isoenzymes Placental 0 <=0 % Alk.Phos Iso. Macrohepatic 19 <=0 % Macrohepatic ALP(1) has been isolated in cases of metastatic carcinoma to the liver and has been suggested as a diagnostic tool in identifying such cases. It has also been isolated in patients with viral hepatitis, alcoholic cirrhosis and other liver diseases. Data suggests that macrohepatic ALP is highly correlated with the presence of liver metastases and that the presence of this isoenzyme could be predictive of the appearance of liver metastases. Macrohepatic ALP is seen occasionally in patients free of any disease state. 1. Efren M. et al., Biomedicine, 31:74-77, 1978. THIS TEST WAS PERFORMED AT: [facility] [address] TALISHA MARTEL MD,PHD Alk.Phos Isoenzymes Interp TNP Reason For Referral No Information Medications Medication SIG (Take, Route, Fr equency, [...] 1 tablet Orally Once a day Active Immunizations Vaccine Route Administration Date Status Comme nts Influenza Unknown 02/12/2024 Administered Social History Tobacco Use: Social History Observation [...] Problem Status W/U Status Risk Notes Problem Ascites due to alcoholic cirrhosis ([id number]) Ascites due to alcoholic cirrhosis (K70.31) Active confirmed Problem Hepatic cyst (60554693) Hepatic cyst (K76.89) Active confirmed Vital Signs Temperature 97.7 degrees Fahrenheit 02/23/2025 Blood pressure diastolic 01 mm Hg 02/23/2025 Height 73 in 02/23/2025 Blood pressure systolic 001 mm Hg 02/23/2025 Weight 146.8 lbs 02/23/2025 BMI 19.37 kg/m2 02/23/2025 Encounters Encounter Location Date Provider Diagnosis [facility] [address] [place] [phone] 02/23/2025 Meir Quintanilla Jr Hepatic cyst K76.89 ; Ascites due to alcoholic cirrhosis K70.31 and Encounter for screening colonoscopy Z12.11 [facility] [address] [place] [phone] 11/25/2024 Meir Quintanilla Jr [facility] [address] [place] [phone] 01/23/2025 Meir Quintanilla Jr Assessments Encounter Date Diagnosis (ICD Code) Assessment Notes Treatment Notes Treatment Clinical Notes Section Notes 02/23/2025 Ascites due to alcoholic cirrhosis (ICD-10 - K70.31) j 02/23/2025 Hepatic cyst (ICD-10 - K76.89) j 02/23/2025 Encounter for screening colonoscopy (ICD-10 - Z12.11) j Plan Of Treatment Pending Test Test Name Order Date LIVER PROFILE 02/23/2025 CBC w/o DIFF 02/23/2025 PROTHROMBIN TIME (PT, INR) 02/23/2025 Liver Fibrosis Pnl 02/23/2025 Future Test Test Name Order Date UPPER GI ENDOSCOPY 02/23/2025 COLONOSCOPY 02/23/2025 Next Appt Details Provider Name:Meir fleming Jr, 03/20/2025 11:40:00 AM, [address] [facility] , [place], [place], [id number], Insurance Providers Payer Name Payer Address Payer Phone Subscriber Number Group Number Insured Name Patient Relationship to Insured Coverage Start Date Coverage End Date [facility] [address] [facility] [place] [phone] [id number] MICKEY CARDOZA Self - patient is the insured MEDICAID OF [facility] [address] [place] [address] [id number] MICKEY CARDOZA Self - patient is the insured Medical (General) History Hospitalization History Reason Date(Month/Year) ascites drained fluid from stomach ascites drained fluid from stomach
[2025-03-18 09:57] VITALS: BMI 19.4
--- NOTE | 2025-03-18 10:39 | HO.ANESPROP2 ---
HPI - Anesthesia Eval Consult details Narrative: 59yo M for Upper Endoscopy and Colonoscopy ETOH cirrhosis with ascites. Last paracentesis 12/2024 with 3.25L removed PMFSH Active Problems Active Problems: All Active Problems Positive JESSICA (antinuclear antibody) (Acute) Cirrhosis of liver (Acute) Abdominal ascites (Acute) Adult failure to thrive (Acute) Peripheral neuropathy (Acute) Past Medical History Medical History (Updated 03/18/25 @ 10:09 by Sandra Sorensen RN) Alcohol dependence in remission History of abdominal paracentesis Liver cirrhosis Peripheral neuropathy Family History Family History (Updated 02/24/25 @ 13:31 by Keturah Fang CNP) Father Bladder cancer Non-Hodgkin lymphoma Mother Bladder cancer Diabetes Lung cancer Surgical History Surgical History (Updated 03/18/25 @ 10:07 by Sandra Sorensen RN) No pertinent past surgical history Social History Social History (Updated 03/18/25 @ 10:08 by Sandra Sorensen RN) Household Members: Spouse Housing: House Do you presently have visiting nurse or other home services: No Alcohol intake: former Patient Tobacco Use Status: Never used Tobacco service: No Meds Allergies Allergy/AdvReac Type Severity Reaction Status Date / Time No Known Allergies Allergy Verified 02/24/25 13:29 Home Medications ?Medication ?Instructions ?Recorded ?Confirmed ?Last Taken ?Type cyanocobalamin (vitamin B-12) 500 500 mcg PO DAILY 01/21/25 02/24/25 01/20/25 History mcg tablet (Vitamin B-12) multivitamin 1 tab PO DAILY 01/21/25 03/18/25 01/20/25 History trazodone 50 mg tablet 50 mg PO BEDTIME PRN insomnia 01/21/25 03/18/25 Unknown History Exam Height,Weight and Vital Signs: Height 6 ft 1 in Weight 66.587 kg Assessment and Plan Assessment Anesthesia Assessment: Chart Reviewed
[2025-03-20] VITALS (9 sets, daily range): BP systolic 98–137; BP diastolic 71–99; PULSE 81–105; RESP 16–20; TEMP 36.6–37.1; O2SAT 97–100; BMI 21.4
--- NOTE | ~2025-03-20 | US_ITS ---
EXAMINATION: US GUIDED PARACENTESIS CLINICAL INFORMATION: Ascites. COMPARISON: Ultrasound-guided paracentesis 01/21/2025. TECHNIQUE: Only explaining ultrasound-guided paracentesis procedure, benefits and risk, a written consent was obtained. Patient was placed supine on ultrasound stretcher and preliminary ultrasound imaging was obtained through the 4 quadrants of the abdomen. An optimal site was selected along the right lower quadrant and marked. The marked site was cleaned and draped in usual sterile manner. 1% lidocaine was injected at the puncture site. Through a small skin incision a 5 German short Yueh catheter was advanced from the skin incision into the peritoneal cavity. After observing fluid return, stylet was withdrawn and catheter connected to vacuum bottle via connecting cannula. After obtaining all fluid and observing no more fluid remaining, catheter was removed and complete hemostasis achieved at puncture site. Sterile dressing applied post procedure. Patient tolerated procedure extremely well. FINDINGS: On preliminary ultrasound imaging there is moderate to large ascites. Approximately 6.8 L of fluid was drained from right lower quadrant. None of this fluid was sent to lab. US/US paracentesis abd w/image IMPRESSION: Successful ultrasound-guided therapeutic paracentesis performed without immediate complications. Electronically signed by: Oli Ambriz MD 03/20/2025 12:45 PM EDT
[2025-03-20 07:00] LABS: Hematocrit 41.8 % (42.0-52.0); Hemoglobin 13.3 g/dl (14.0-18.0); INTERNATIONAL NORM RATIO 1.2 (0.9-1.1); Mean Corpuscular HGB Conc 31.8 g/dl (31.0-36.0); Mean Corpuscular Hemoglobin 27.8 pg (27.0-33.0); Mean Corpuscular Volume 87.4 fL (80.0-98.0); NRBC Abs Auto 0.000 X10*3/uL (0.0-0.012); NRBC Pct Auto 0.0 /100WBC (0.0-0.2); Platelet Count 446 X10*3/uL (160-400); Prothrombin Time 13.8 SEC (10.9-12.4); Red Blood Count 4.78 X10*6/uL (4.60-5.80); White Blood Count 10.0 X10*3/uL (4.8-10.8)
[2025-03-20 07:09] LABS: Anion Gap 18 (12-20); Blood Urea Nitrogen 16 mg/dL (9-16); Calcium 9.7 mg/dL (8.4-10.2); Carbon Dioxide 22 mmol/L (22-29); Chloride 95 mmol/L (96-108); Creatinine Clr Calc Pharmacy 80.4; Estimated Glomerular Filt Rate > 60; Potassium 3.7 mmol/L (3.3-5.1); Sodium 131 mmol/L (135-145)
--- NOTE | 2025-03-20 08:02 | PC.NURSE ---
dr. vega and dr. roberts updated that patient reports last paracentesis was 01/19 and in the last few days patient has been feeling full in his abdomen, which is noted and patient reports happened quickly. lcta. patient sob with ambulation with walker and stated this has been consistent since abdomen changes. both doctors aware of lab values drawn this a.m. and no interventions at this moment. dr. vega waiting for return call from radiology to see if patient can have paracentesis today or schedule one. no IV placed yet. patient agrees with plan. awaiting to hear for next step. patient comfortable
--- NOTE | 2025-03-20 08:34 | PC.NURSE ---
hiral sapp, updated via telephone regarding plan at this point.
--- NOTE | 2025-03-20 09:21 | PC.NURSE ---
hiral sapp, updated that patient will be having paracentesis this morning and reevaluated for scheduled egd/colonoscopy post paracentesis.
--- NOTE | 2025-03-20 09:38 | PC.NURSE ---
IV placed. patient awaiting paracentesis now per dr. vega. will re-evaluate post to see if today's scheduled procedures will be completed.
--- NOTE | 2025-03-20 10:11 | PC.NURSE ---
0950 patient to radiology for paracentesis.
[2025-03-20] MEDS: Albumin Human 25 % 50 ML 100 ML IV ×2 (11:04→11:30)
--- NOTE | 2025-03-20 11:15 | P.HPSUR_ITS ---
Pre-Procedural Eval Section A - 24 Hr Update-Section A only Date of Service: 03/20/25 Section B - Complete if H&P > 30 days Chief Complaint: screening,cirrhosis of livwer,liver disease Details of Present Illness: see H&P no changes Relevant Family History (Specify if Yes): No Relevant Social History: None Present Medications: see Short Stay Collaborative assessment Medical History: No relevant PMH History of Previous Operations: No relevant previous surgery Allergies: Allergies Allergy/AdvReac Type Severity Reaction Status Date / Time No Known Allergies Allergy Verified 03/20/25 07:12 Review of Systems Sugical H&P ROS: Negative: Constitution, Cardiovascular, Respiratory, Neurological, Psychiatric, Hem-Onc, Allergic/Immunologic, Gastrointestinal, Genitourinary, Musculoskeletal, Integumentary, Endocrine and Eyes/Ears/Nose/Thr oat Exam Surgical H&P Exam: Normal: HEENT, Normal: Heart, Normal: Lungs, Normal: Extremities, Normal: Skin and Normal: Neurological and Significant Findings: Abdomen (ascites, had paracentesis this am) Plan Diagnosis/Plan: Unchanged I have reviewed the history and physical and performed a pertinent physical examination on my patient. No changes have occurred unless specified. Time Spent With Patient Time: Total time managing care of this patient today ____ minutes.
[2025-03-20 11:23] LABS: Anion Gap 13 (12-20); Carbon Dioxide 24 mmol/L (22-29); Chloride 98 mmol/L (96-108); Potassium 3.7 mmol/L (3.3-5.1); Sodium 131 mmol/L (135-145)
[2025-03-20] MEDS: Lactated Ringers 1,000 ML 100 ML IVCONT (11:40)
--- NOTE | 2025-03-20 12:50 | OP_ITS ---
DATE OF SERVICE: 03/20/2025 SURGEON: Meir Quintanilla MD INDICATIONS: 1. Cirrhosis. 2. Colon cancer screening. PREOPERATIVE DIAGNOSIS: POSTOPERATIVE DIAGNOSIS: PROCEDURE PERFORMED: Upper endoscopy with biopsy, colonoscopy to the cecum with snare polypectomy and biopsy. ESTIMATED BLOOD LOSS: COMPLICATIONS: ANESTHESIA: Monitored anesthesia care. ASSISTANTS: SPECIMENS: DESCRIPTION OF PROCEDURE: A history and physical was performed. The risks and benefits of the procedure were explained to the patient. Informed consent was obtained. The patient was placed in the left lateral decubitus position. The Olympus video gastroscope was introduced into the esophagus, stomach, and duodenum. Examination was performed. The scope was removed. He was repositioned for colonoscopy. A digital rectal exam was performed and was found to be normal. The Olympus pediatric video colonoscope was introduced into the rectum and advanced to the cecum. The cecum was identified by transillumination, palpation, and identification of ileocecal valve. Examination was performed. The scope was removed. He tolerated both procedures well and was returned to the recovery area in stable condition. FINDINGS: Upper endoscopy: 1. Esophagus: The esophagus was remarkable for 2 chains of grade 1 varices extending from the EG junction at 40 cm to about 30 cm. There were no stigmata of recent hemorrhage. 2. Stomach: The stomach showed mild changes of portal hypertensive gastropathy. No gastric varices were identified. Antral biopsies were obtained. 3. Duodenum: The bulb and 2nd portion were normal. Colonoscopy: The terminal ileum was not examined. The visualized colonic mucosa was within normal limits. The quality of the prep was good. Three polyps were identified, all measured less than 10 mm and removed with a combination of forceps and cold snare. These were located in the cecum at 75 cm and at 50 cm. There was some diverticulosis present in the sigmoid. Retroflexed examination showed moderate-sized internal hemorrhoids. IMPRESSION: 1. Esophageal varices. 2. Portal hypertensive gastropathy. 3. Colon polyps. RECOMMENDATION: Follow up the biopsy results. MD ROSALEE Flannery/GETACHEW / [id number] MTDD
[2025-03-20 12:52] LABS: Alanine Aminotransferase 16 U/L (0-40); Albumin Level 4.2 g/dL (3.5-5.0); Alkaline Phosphatase 462 U/L (39-117); Aspartate Amino Transferase 41 U/L (5-37); Total Protein 8.2 g/dL (6.5-8.0)
== END 2025-03-20 13:15 | disposition home or self-care (01) ==
PROVIDERS: Anesthesiology; Nurse Practitioner; Radiology Diagnostic Radiology; PCP Registered Nurse; Visit Provider Internal Medicine Gastroenterology
PROC: (CPT 45385; principal; 2025-03-20 08:20)
DX: Z12.11 Encounter for screening for malignant neoplasm of colon (principal); K70.31 Alcoholic cirrhosis of liver with ascites; K76.89 Other specified diseases of liver; I85.10 Secondary esophageal varices without bleeding; K76.6 Portal hypertension; K31.89 Other diseases of stomach and duodenum; K64.8 Other hemorrhoids; K57.30 Diverticulosis of large intestine without perforation or abscess without bleeding; D12.5 Benign neoplasm of sigmoid colon; K63.5 Polyp of colon
CPT/HCPCS: 45385; 36415; 49083; 80048; 80051; 80076; 85027; 85610; 88305; 88342; J2003; J2704; P9047

== ENCOUNTER → 2025-03-20 09:34 | Outpatient (BNV) | payer OTHER, SELFPAY | PROVIDERS: PCP Registered Nurse; Visit Provider Radiology Diagnostic Radiology | DX: R18.8 Other ascites (principal) | CPT/HCPCS: 49083 ==

== ENCOUNTER 2025-04-02 10:51 | Outpatient (AMB) | payer OTHER, SELFPAY ==
--- NOTE | 2025-04-02 11:30 | MHC.OFFVIS ---
Intake Visit Reasons: RESULTS Accompanied by: Brother Allergies No Known Allergies Allergy (Verified 04/02/25 11:31) Medication List - Last Reconciled 04/02/25 by Keturah Fang CNP cyanocobalamin (vitamin B-12) (Vitamin B-12) 500 mcg PO DAILY folic acid 1 mg PO DAILY furosemide 80 mg PO DAILY gabapentin 300 mg PO BEDTIME 30 days multivitamin 1 tab PO DAILY spironolactone 100 mg PO DAILY trazodone 50 mg PO BEDTIME PRN HPI Comments Details: 59-year-old man with history of alcohol use disorder in the past, who stopped drinking around 09/2024, and cirrhosis of the liver here for symptoms of numbness, tingling, and pain in legs that started around 10/2024. Numbness, tingling, and pain, usually burning-type, extend from feet to knees. He occasionally gets some sharp pains. He was doing okay. Pain was better with gabapentin at bedtime, no medication side effects and able to sleep through night. Numbness and tingling also seemed to be less. He was walking with walker, no falls. He was leaving for [place] at the end of next week for vacation with family. [facility] Medical History (Updated 04/02/25 @ 11:40 by Keturah Fang CNP) Alcohol dependence in remission History of abdominal paracentesis Liver cirrhosis Peripheral neuropathy Surgical History No pertinent past surgical history Family History (Updated 02/24/25 @ 13:31 by Keturah Fang CNP) Father Bladder cancer Non-Hodgkin lymphoma Mother Bladder cancer Diabetes Lung cancer Social History (Updated 03/18/25 @ 10:08 by Sandra Sorensen RN) Household Members: Spouse Housing: House Are you a primary career coordinator to a significant other at home: No Do you presently have visiting nurse or other home services: No Alcohol intake: former Patient Tobacco Use Status: Never used Tobacco service: No Review of Systems Const Denies chills, Denies daytime sleepiness, Reports difficulty sleeping, Reports fatigue, Denies fever(s), Denies frequent falls, Denies headache(s), Denies increased appetite, Denies poor appetite, Denies snoring, Reports weakness, Denies weight gain and Reports weight loss Eyes Denies loss of vision ENT Denies vertigo, Denies dizziness and Denies headache(s) Card Denies chest pain at rest, Denies chest pain with activity, Denies syncope, Denies leg edema, Denies palpitations, Denies dyspnea and Denies dyspnea on exertion Resp Reports cough, Denies dyspnea, Denies dyspnea on exertion and Denies snoring GI Reports abdominal pain, Denies constipation, Denies heartburn, Denies diarrhea, Denies nausea and Denies vomiting Reports urinary frequency, Denies urinary incontinence and Denies urinary urgency Musc Reports abnormal gait, Reports numbness and Reports tingling Skin/Breast Denies breast mass, Reports pruritus, Denies nipple discharge and Denies rash Neuro Reports abnormal gait, Denies vertigo, Denies dizziness, Denies syncope, Denies frequent falls, Denies headache(s), Denies lack of coordination, Denies loss of vision, Denies memory loss, Reports numbness, Denies Other visual disturbances, Denies restless legs, Denies seizure-like activity, Reports tingling, Denies paresthesias, Denies tremor(s) and Reports weakness Psych Denies anxiety, Denies depression, Denies memory loss, Denies visual hallucinations and Denies hallucinations Endo Denies cold intolerance, Reports fatigue, Denies heat intolerance, Denies polydipsia, Denies polyuria and Denies palpitations Physical Exam Const Other: General Appearance:? normal, in no acute distress. Skin:? no rashes, no significant birthmarks. Heart:? S1, S2 normal, no murmurs. Lungs:? clear anteriorly and posteriorly. Extremities:? no edema. Psych:? alert, oriented, cognitive function intact, cooperative with exam. Neuro Other: Mental Status:?Normal attention, orientation, memory and affect.? Cranial Nerves:?Pupils are equal, round and reactive to light. External occular muscles are intact. Visual chiang are full. Face is symmetrical. Facial sensations are normal. Tongue is midline. Palate elevates symmetrically. Shoulder shrugging is normal. Hearing to bedside conversation is normal. Motor Examination:?DTRs trace to absent. Sensory Exam:?Impaired joint sensation. Coordination:?No ataxia,?no titubation.? Gait Exam: With walker. Cerebellar Signs:?[id number]-hc-[id number] is okay. Extrapyramidal System:?No tremor, rigidity with normal facial expressions.? Pronator Drift:?Not present.? Involuntary Movements:?No tremors seen.? Speech:?Normal.? Results Reviewed Results Reviewed: [address] [address] EMG / Nerve Conduction Report Signed Patient: Mickey Jacobo MR#: [id number] : 1965 Acct:[id number] Age/Sex: 59 / M ADM Date: 03/04/25 Loc: HO.NEURO Attending Dr: Keturah Fang CNP Ordering Physician: Keturah Fang CNP Date of Service: 03/04/25 Procedure(s): NE electromyogram (EMG); NE nerve conduction velocity Accession Number(s): [id number]; [id number] cc: Keturah Fang CNP~ Reason for Exam: G62.1 - Alcoholic polyneuropathy Chief complaint: Balance and pain Reason for referral: Alcoholic polyneuropathy Referred by:?Keturah Fang CNP Procedure done: Bilateral lower extremities NCS/EMG Description: Bilateral tibial and peroneal motor studies were performed with F responses and with tibial H reflexes. Bilateral superficial peroneal and sural sensory studies were performed and EMG needle examination was performed. There was mild delay of distal latency of peroneal stimulation while moderate of tibial stimulation with moderate reduction of amplitude seen both tibial and peroneal responses with conduction velocities falling in mid to high 20s me to per sec. Superficial peroneal and sural responses were absent. F responses were delayed an H reflexes were absent. Impression: Moderately severe sensory and motor peripheral neuropathy with features of demyelination and axonal loss. Further evaluation for chronic inflammatory demyelinating polyneuropathy might be in order. Dictated By: Misa Woody MD Signed By: <Electronically signed by Misa Woody MD> 03/04/25 1528 Laboratory Tests 02/24/25 02/24/25 03/20/25 14:35 Unknown 06:48 ESR 74 H Sodium 131 L Potassium 3.7 Chloride 95 L Carbon Dioxide 22 Anion Gap 18 BUN 16 Creatinine 1.04 Estim Creat Clear Calc 80.4 Estimated GFR > 60 Fasting Glucose 165 H Calcium 9.7 Total Bilirubin 1.0 Direct Bilirubin 0.6 H AST 41 H ALT 16 Alkaline Phosphatase 462 H C-Reactive Protein 5.90 H Total Protein 8.2 H Albumin 4.2 Vitamin B12 1233 H Folate 15.6 Anti-ds DNA Titer (Crith) TNP Anti-ds DNA (Crithidia) Negative Labs 10/2024: JESSICA positive, 1:320, nuclear speckled Assessment & Plan Assessment & Plan (1) Peripheral neuropathy: Code(s): G62.9 - Polyneuropathy, unspecified Category: Medical Qualifiers: Peripheral neuropathy type: polyneuropathy, alcohol-induced Qualified Code(s): G62.1 - Alcoholic polyneuropathy Plan: Lab results reviewed, positive JESSICA, elevated ESR and CRP - rheumatology referral placed. Continue gabapentin 300mg 1 capsule at bedtime. Continue to use walker for additional support. (2) CIDP (chronic inflammatory demyelinating polyneuropathy): Code(s): G61.81 - Chronic inflammatory demyelinating polyneuritis Category: Medical Plan: NCV/EMG results reviewed - Lyme, serum immunofixation, and LP ordered. 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
--- OUTSIDE RECORDS SUMMARY | 2025-04-02 13:11 | XMS_ITS | Clinical Summary ---
Author Organization [facility] Address [address] [address] Phone Care Team Providers Care Wooden Furniture Polisher Name Role Phone Unavailable Primary Care Provider Unavailabl e Encounters Date Type Department Care Team Description 01/22/2025 Orders Only [facility] [address] [place] [id number] Homehealth, Interface ProviderMD from Last 3 Months [...] file Medical Devices Not on file Insurance [facility] [employer] [facility] ACO Additional Source Comments The information contained in this document represents components of the legal health record. It is not the complete legal health record.[facility]
== END 2025-04-02 11:59 | disposition home or self-care (01) ==
LOC: HO.HSM 10:52
PROVIDERS: PCP Internal Medicine; Visit Provider Registered Nurse
DX: G62.1 Alcoholic polyneuropathy (principal); G61.81 Chronic inflammatory demyelinating polyneuritis
CPT/HCPCS: 99214

== ENCOUNTER 2025-04-02 10:51 | Outpatient (REF) | payer OTHER, SELFPAY ==
[2025-04-03 06:28] LABS: Lyme Abs Screen <0.90 index
== END 2025-04-02 10:52 | disposition home or self-care (01) ==
LOC: HO.LAB 10:51
PROVIDERS: PCP Internal Medicine; Visit Provider Registered Nurse
DX: G62.1 Alcoholic polyneuropathy (principal); G61.81 Chronic inflammatory demyelinating polyneuritis; Z01.84 Encounter for antibody response examination; Z79.899 Other long term (current) drug therapy
CPT/HCPCS: 36415; 82784; 86334; 86617; 86618; 99212

== ENCOUNTER 2025-04-20 11:15 | Outpatient (REF) | payer OTHER, SELFPAY ==
[2025-04-20 13:19] LABS: MANUAL DIFF FLAG NO
[2025-04-20 13:22] LABS: Hematocrit 44.1 % (42.0-52.0); Hemoglobin 14.2 g/dl (14.0-18.0); Imm Gran Abs Auto 0.05 X10*3/uL (0.00-0.03); Imm Gran Pct Auto 0.6 % (0.0-0.4); Lymphocytes Absolute Auto 0.8 X10*3/uL (1.2-4.9); Mean Corpuscular HGB Conc 32.2 g/dl (31.0-36.0); Mean Corpuscular Hemoglobin 28.2 pg (27.0-33.0); Mean Corpuscular Volume 87.7 fL (80.0-98.0); NRBC Abs Auto 0.000 X10*3/uL (0.0-0.012); NRBC Pct Auto 0.0 /100WBC (0.0-0.2); Platelet Count 390 X10*3/uL (160-400); Red Blood Count 5.03 X10*6/uL (4.60-5.80); White Blood Count 8.0 X10*3/uL (4.8-10.8)
--- OUTSIDE RECORDS SUMMARY | 2025-04-20 14:37 | XMS_ITS | Clinical Summary ---
Author Organization [facility] Address [address] [address] Phone Care Team Providers Care Assembler Crimper Name Role Phone Unavailable Primary Care Provider Unavailabl e Encounters Date Type Department Care Team Description 01/22/2025 Orders Only [facility] [address] [place] [phone] Homehealth, Interface ProviderMD from Last 3 Months [...] file Medical Devices Not on file Insurance [facility] [employer]NERSH[employer] ACO [facility] ACO [facility] A[facility]CO [facility] PARTNERSHIP ACO [facility] [employer]NER[employer] ACO Additional Source Comments The information contained in this document represents components of the legal health record. It is not the complete legal health record.[facility]
[2025-04-20 16:12] LABS: Alanine Aminotransferase 17 U/L (0-40); Albumin Level 4.2 g/dL (3.5-5.0); Alkaline Phosphatase 422 U/L (39-117); Anion Gap 15 (12-20); Aspartate Amino Transferase 37 U/L (5-37); Blood Urea Nitrogen 18 mg/dL (9-16); Calcium 10.1 mg/dL (8.4-10.2); Carbon Dioxide 24 mmol/L (22-29); Chloride 103 mmol/L (96-108); Estimated Glomerular Filt Rate > 60; Potassium 4.5 mmol/L (3.3-5.1); Sodium 137 mmol/L (135-145); Total Protein 7.7 g/dL (6.5-8.0)
[2025-04-29 00:24] LABS: FIB-ALT 16 U/L (9-46); FIB-Alpha-2-Macroglobulin 198 mg/dL (106-279); FIB-Apolipoprotein A1 166 mg/dL (94-176); FIB-GGT 658 U/L (3-85); FIB-Haptoglobin 261 mg/dL (43-212); FIB-Total Bilirubin 0.9 mg/dL (0.2-1.2); Liver Fibrosis Score 0.53; Liver Fibrosis Stage F2; Nec Inflam Act Grade A0; Nec Inflam Act Score 0.08
== END 2025-04-20 11:16 | disposition home or self-care (01) ==
LOC: HO.10HDL 11:15
PROVIDERS: Visit Provider Internal Medicine Gastroenterology
DX: K70.31 Alcoholic cirrhosis of liver with ascites (principal); K76.89 Other specified diseases of liver
CPT/HCPCS: 36415; 80053; 81596; 82248; 85025

== ENCOUNTER 2025-04-22 06:38 | Day surgery (SDC) | payer OTHER, SELFPAY ==
--- OUTSIDE RECORDS SUMMARY | 2025-03-20 03:20 | XMS_ITS ---
Author Organization [facility] Address [address] [facility] [address] [place] [phone] Care Team Providers Care Senior Accounts Payable Clerk Name Role Phone Lenka YOST, Jose De Jesus Primary Care Provider Meir Vázquez Jr Unavailable [phone] Ronak YOST, Zuri Unavailable Unavailable REASON FOR VISIT ascites due to alcoholic cirrhosis,scxreening, hepatic cyst Encounters Encounter Location Date Provider Diagnosis [facility] [address] [place] [phone] 03/20/2025 Meir Quintanilla Jr Plan Of Treatment Next Appt Details Provider Name:Meir fleming Jr, 10/21/2025 10:20:00 AM, [address] [facility], [address], [place], [phone], Progress Notes * TRACEY CARDOZAOB: 7 (59 yo M)Acc No.[id number]:03/20/2025 EGD and COL/MAC Patient: MERCEDES JACOBS Provider: Katie Quintanilla MD :1965 A ge:59 Y S ex:Male Date:03/20/2025 [address] [place] [place], [place] Pcp:Jose De Jesus Og MD Subjective: * Chief Complaints: * A scites due to alcoholic cirrhosis,scxreening, hepatic cyst Billing Information: * Procedure Codes: * The named appointment provid er may or may not be the originator of this progress note, and it is not deemed complete until electronically signed by the appointment provider. Sign off status: Pending * Provider: Katie Quintanilla MD Date: Generated for Sha perera/Anthony/Zenobiaitting on: 06/21/2024 02:33 PM EST
--- OUTSIDE RECORDS SUMMARY | 2025-04-20 05:40 | XMS_ITS ---
Author Organization [facility] Address [address] [place] [address] Care Team Providers Care Seafood Harvester Name Role Phone Jose De Jesus Og MD Primary Care Provider Meir Vázquez Jr [phone] Ronak YOST, Zuri Unavailable Unavailable REASON FOR VISIT PATIENT PRESENTS TODAY FOR cirrhosis Medications Medication SIG (Take, Route, Frequency, Duration) Notes Start Date End Date Status Gabapentin 300 MG Capsule 1 capsule Oral ly Once a day Active Multi Vitamin - Tablet 1 tablet Orally O nce a day Active Furosemide 40 MG Tablet 1 tablet Orally Once a day Active Folic Acid 1 MG Tablet 1 tablet Orally O nce a day Active Spironolactone 100 MG Tablet 1 tablet Or ally Once a day Active traZODone HCl 50 MG Tablet 1 tablet at b edtime as needed Orally Once a day; Duration: 30 day(s) 02/23/2025 Active Social History Tobacco Use: Social History Observation Description Date Details (start date - stop date) Never Smoker NA - NA Social History Tobacco Use: Social Info Question Answer Notes Tobacco Control (Standard) Tobacco use: Nonsmoker Additional Details Category Social Info Options Details Miscellaneous: Marital status: Occupation: unemployed Vital Signs Temperature 97.9 degrees Fahrenheit 04/20/20 25 Blood pressure systolic 001 mm Hg 04/20/20 25 Blood pressure diastolic 01 mm Hg 025 Height 73 in 04/20/2025 Weight 168.6 lbs 04/20/2025 BMI 22.24 kg/m2 04/20/2025 Encounters Encounter Location Date Provider Diagnosis [facility] [address] [place] [address] 04/20/2025 Meir Quintanilla Jr Ascites due to alcoholic cirrhosis K70.31 and Hepatic cyst K76.89 Assessments Encounter Date Diagnosis (ICD Code) Assessment Notes Treatment Notes Treatment Clinical Notes Section Notes 04/20/2025 Ascites due to alcoholic cirrhosis (ICD-10 - K70.31) We discussed his symptoms today. He will have large-volume paracentesis with albumin replacement. Laboratory studies will be obtained today and diuretic adjustment will be made based on this. Follow-up will be in 6 months. Sooner if necessary. He will be referred for transplant evaluation as he remains abstinent for alcohol for more than 6 months. 04/20/2025 Hepatic cyst (ICD-10 - K76.89) We discussed his symptoms today. He will have large-volume paracentesis with albumin replacement. Laboratory studies will be obtained today and diuretic adjustment will be made based on this. Follow-up will be in 6 months. Sooner if necessary. He will be referred for transplant evaluation as he remains abstinent for alcohol for more than 6 months. Plan Of Treatment Pending Test Test Name Order Date CHEM 7 PROFILE 04/20/2025 LIVER PROFILE 04/20/2025 CBC w/o DIFF 04/20/2025 PARACENTESIS W GUIDANCE 04/20/2025 Liver Fibrosis Pnl 04/20/2025 Next Appt Details Follow Up: 6 Months, Reason: Provider Name:Meir fleming Jr, 10/21/2025 10:20:00 AM, [address] [place] [address], [address], [place], [address], History and Physical Notes * HPI (History of Present Illness) Category Sub-Category Detail Notes Category Not es New symptom(s) The patient is a pleasant 59-year-old man seen today in follow-up of cirrhosis with ascites. He underwent upper endoscopy in February which showed grade 1 varices and portal hypertensive gastropathy. Colonoscopy showed 3 polyps that were removed. He will need follow-up colonoscopy in approximately 3 years. He continues on spironolactone and furosemide. He has had reaccumulation of his ascites and fluid and will need large-volume paracentesis. He noted the recurrence of his fluid of over about 1 week. He may need diuretic adjustment pending laboratory studies. Examination Category Sub-Category Detail Notes Category Not es General Examination On exami nation today, he appears pale. Skin is anicteric there is temporal wasting. Lungs are clear. Heart shows a regular rate and rhythm. Abdomen is distended with obvious ascites. There is no tenderness. Extremities are without edema. Progress Notes * TRACEY CARDOZAOB: 7 (59 yo M)Acc No.[id number]:04/20/2025 Progress Notes Patient: MERCEDES JACOBS Provider: Katie Quintanilla MD :1965 A ge:59 Y S ex:Male Date:04/20/2025 Address:[address] [place], [id number] Pcp:Jose De Jesus Og MD Subjective: * Chief Complaints: * 1 . PATIENT PRESENTS TODAY FOR cirrhosis. * HPI: N ew symptom(s): The patient is a pleasant 59-year-old man seen today in follow-up of cirrhosis with ascites. He underwent upper endoscopy in February which showed grade 1 varices and portal hypertensive gastropathy. Colonoscopy showed 3 polyps that were removed. He will need follow-up colonoscopy in approximately 3 years. He continues on spironolactone and furosemide. He has had reaccumulation of his ascites and fluid and will need large-volume paracentesis. He noted the recurrence of his fluid of over about 1 week. He may need diuretic adjustment pending laboratory studies. * Medical History: * Surgical History: * Hospitalization/Major Diagno stic Procedure: * Family History: F ather: alive. M other: , diagnosed with Diabetes. F amily History Verified..? No family history of colon cancer or liver cancer. * Social History: T obacco Use: T obacco Control (Standard) T obacco use: N onsmoker. M iscellaneous: M arital status: . Occupation: unemployed. Social History Verified. * Medications: T aking Gabapentin 300 MG Capsule 1 capsule Orally Once a day , Taking Multi Vitamin - Tablet 1 tablet Orally [...] and reconciled with the patient * Allergies: Allergies Verified. Objective: * Vitals: W t:168.6lbs, Ht: 73 in, BMI:22.24Index, BP:001/01mm Hg, Temp:97.9F, Ht-cm: 185.42 cm, Wt-k.48 kg. * Examination: G eneral Examination: O n examination today, he appears pale. Skin is anicteric there is temporal wasting. Lungs are clear. Heart shows a regular rate and rhythm. Abdomen is distended with obvious ascites. There is no tenderness. Extremities are without edema. Assessment: * Assessment: 1. A scites due to alcoholic cirrhosis - K70.31 (Primary) 2 . H epatic cyst - K76.89 We discussed his symptoms to day. He will have large-volume paracentesis with albumin replacement. Laboratory studies will be obtained today and diuretic adjustment will be made based on this. Follow-up will be in 6 months. Sooner if necessary. He will be referred for transplant evaluation as he remains abstinent for alcohol for more than 6 months. Plan: * Treatment: * 2.?Hepatic cyst?LAB: CHEM 7 PROFILE ?LAB: LIVER PROFILE ?LAB: CBC w/o DIFF ?LAB: Liver Fibrosis Pnl ?Imaging: PARACENTESIS W GUIDANCE* MathieuSyn 04/20/2025 11: 49:51 AM EST > waiting on H & P to fax for [id number] g albumin IV to be given at time of paracentesis. * * Procedure Codes: 3 017F COLORECTAL CA SCREEN DOC REV, 1036F TOBACCO NON-USER, G8785 BP SCR NOT PRFRM REC REASON NOS * Follow Up: 6 Months Billing Information: * Procedure Codes: 3017F COLORECTAL CA SCREEN DOC REV. 1036F TOBACCO NON-USER. G8785 BP SCR NOT PRFRM REC REASON NOS. * Sign off status: Completed true * Provider: Katie Quintanilla MD Date: 06/20/2024 Generated for Printi ng/Favsaileg/eTransmitting on: 06/21/2024 02:34 PM EST
--- OUTSIDE RECORDS SUMMARY | 2025-04-20 10:28 | XMS_ITS ---
Author Organization [facility] Address [address] [place] [phone] Care Team Providers Care Manager Staffing Name Role Phone Lenka YOST, Jose De Jesus Primary Care Provider Meir Vázquez Jr Unavailable Ronak YOST, Zuri Unavailable Unavailable REASON FOR VISIT ov note Medications Medication SIG (Take, Route, Frequency, Duration) Notes Start Date End Date Status Albumin Human 25 % Solution 50 g Intravenous once; Duration: 1 days 04/20/2025 Active Encounters Encounter Location Date Provider Diagnosis [facility] [address] [place] [phone] 04/20/2025 Meir Quintanilla Jr Ascites due to alcoholic cirrhosis K70.31 Assessments Encounter Date Diagnosis (ICD Code) Assessment Notes Treatment Notes Treatment Clinical Notes Section Notes 04/20/2025 Ascites due to alcoholic cirrhosis (ICD-10 - K70.31) Plan Of Treatment Medication Medication Name Sig Start Date Stop Date Notes Albumin Human 25 % Solution 50 g Intrave nous once; Duration: 1 days 04/20/2025 Next Appt Details Provider Name:Meir fleming Jr, 10/21/2025 10:20:00 AM, [address], [address], [place], [address], Progress Notes * NANI NIKOLAYCHETANOB: 7 (59 yo M)Acc No.[id number]:04/20/2025 Patient: MERCEDES JACOBS :1965 A ge:59 Y S ex:Male Address:[address] [place], [address] * Refills Start Albumin Human Solution, 25 %, Intravenous, 50 g, once, 1 days, Refills=0 Subjective: * Chief Complaints: * O v note Assessment: * Assessment: 1. A scites due to alcoholic cirrhosis - K70.31 (Primary) Plan: * Treatment: * true * Date: Generated for Sha perera/Anthony/William on: 06/21/2024 02:34 PM EST
--- OUTSIDE RECORDS SUMMARY | 2025-04-21 14:34 | XMS_ITS | Patient Health Record ---
Author Organization [facility] Address [address] [place] [address] Care Team Providers Care Elementary Secretary Name Role Phone Lenka YOST, Jose De Jesus Primary Care Provider Meir Vázquez Jr Unavailable [phone] Zuri Simons MD Unavailable Unavailable Allergies No Known Allergies Results Component Value Reference Range Flag Notes Liver Fibrosis Pnl Reviewed date:03/03/2025 02:20:33 PM Interpretation: Performing Lab:[facility], [address] [place] [phone] Notes/Report: Liver Fibrosis Score 0.60 Liver Fibrosis Stage F3 Liver Fibrosis Interpretation SEE NOTE advanced fibrosis Fibro Test Score (f) Metavir Score [...] F4 (severe fibrosis) Nec Inflam Act Score 0.11 Nec Inflam Act Grade A0 Nec Inflam [...] a>0.62 and a<=1.00 : A3 (severe activity) FBV-Nlbps-0-Macroglobuli n 190 106-279 mg/dL FIB-Haptoglobin 372 43-212 mg/dL A This value is highly elevated over the 99 percentile. Check the value and the absence of sepsis. Usual maximum value is 320.0 mg/dl. FIB-Apolipoprotein A1 153 94-176 mg/dL FIB-Total Bilirubin 1.4 0.2-1.2 mg/dL A FIB-GGT 794 3-85 U/L A Unusual deviat ion with median value. FIB-ALT 19 9-46 U/L Reference ID [id number] Footnote SEE NOTE The reliability of results is dependent on compliance with the preanalytical and analytical conditions recommended by [employer]. The tests have to be deferred for: [...] The performance characteristics have been determined by [facility]. It has not been cleared or approved by the U.S. Food and Drug Administration. Performance characteristics refer to the analytical performance of the test. [facility], the associated logo, [employer] and all associated [employer] villa are the registered trademarks of [employer]. All third libertarian villa - (R) and (TM) - are the property of their respective owners. (C) [id number] [employer]. All rights reserved. THIS TEST WAS PERFORMED AT: [facility] [address] [place] [address] LASHANDA DUMAS MD,PHD,RUSSEL Liver Fibrosis Pnl Reviewed date:11/26/2024 07:25:25 AM Interpretation: Performing Lab:[facility], [address] [place] [phone] Notes/Report: Liver Fibrosis Score 0.86 Liver Fibrosis [...] a>0.62 and a<=1.00 : A3 (severe activity) DCX-Yljno-3-Macroglobuli n 195 106-279 mg/dL FIB-Haptoglobin 155 43-212 mg/dL FIB-Apolipoprotein A1 74 94-176 mg/dL A FIB-Total Bilirubin 2.3 0.2-1.2 mg/dL A FIB-GGT 303 3-85 U/L A FIB-ALT 14 9-46 U/L Reference ID [id number] Footnote SEE NOTE The reliability of results is dependent on compliance with the preanalytical and analytical conditions recommended by [employer]. The tests have to be deferred for: [...] The performance characteristics have been determined by [facility]. It has not been cleared or approved by the U.S. Food and Drug Administration. Performance characteristics refer to the analytical performance of the test. [facility], the associated logo, [employer] and all associated [employer] villa are the registered trademarks of [employer]. All third libertarian villa - (R) and (TM) - are the property of their respective owners. (C) [id number] [employer]. All rights reserved. THIS TEST WAS PERFORMED AT: [facility] [address] [place] [address] LASHANDA DUMAS MD,PHD,RUSSEL JESSICA Reflex Titer and Pattern Reviewed date:11/25/2024 02:06:52 PM Interpretation: Performing Lab:[facility], [address] [place] [phone] Notes/Report: Anti Nuclear Antibody Screen POSITIVE NEGATIVE A JESSICA IFA is a first line screen for detecting the presence of up to approximately 150 autoantibodies in various autoimmune diseases. A positive JESSICA IFA result is suggestive of autoimmune disease and reflexes to titer and pattern. Further laboratory testing may be considered if clinically indicated. For additional information, please refer to http://education.[employer]/faq/FAQ1 77 (This link is being provided for informational/ educational purposes only.) Anti Nuclear Antibody Titer 1:320 A Reference Range <1:40 Negative 1:40-1:80 Low Antibody Level >1:80 Elevated Antibody Level Anti Nuclear Antibody Pattern Nuclear, Speckled A Speckled pattern is associated with mixed connective tissue disease (MCTD), systemic lupus erythematosus (SLE), Sjogren's syndrome, dermatomyositis, and systemic sclerosis/polymyositis overlap. AC-2,4,5,29: Speckled International Consensus on JESSICA Patterns (https://doi.org/10.151 5/txes-5960-6705) THIS TEST WAS PERFORMED AT: [facility] [address] [place] [phone] GWENDOLYN VILLATORO MD JESSICA Titer 2 TNP JESSICA Pattern 2 TNP JESSICA Titer 3 TNP JESSICA Pattern 3 TNP Mitochondrial Antibody Reviewed date:11/25/2024 02:07:24 PM Interpretation: Performing Lab:[facility], [address] [place] [phone] Notes/Report: Mitochondrial Antibodies NEGATIVE NEGATIVE N THIS TEST WAS PERFORMED AT: [facility] [address] [place] [phone] GWENDOLYN VILLATORO MD Mitochondrial Ab Titer TNP Smooth Muscle Antibody Reviewed date:11/25/2024 02:07:08 PM Interpretation: Performing Lab:[facility], [address] [place] [phone] Notes/Report: Smooth Muscle Antibody <20 <20 U [...] type 1. THIS TEST WAS PERFORMED AT: [facility]/[address] TALISHA MARTEL MD,PHD Alkaline Phosphatase Isoenzy me Reviewed date:01/28/2025 08:45:50 AM Interpretation: Performing Lab:[facility], [address] [place] [phone] Notes/Report: Alk.Phos Isoenzymes Total 277 35-144 U/L A Alk.Phos Isoenzymes Intest 0 1-24 % A Alk.Phos Isoenzymes Bone 22 28-66 % A Alk.Phos Isoenzymes Liver 59 25-69 % Alk.Phos Isoenzymes Placental 0 <=0 % Alk.Phos Iso. Macrohepatic 19 <=0 % A Macrohepatic ALP(1) has been isolated in cases [...] patients free of any disease state. 1. Von Schwartz. et al., Biomedicine, 31:74-77, 1978. THIS TEST WAS PERFORMED AT: [facility]/[address] [address] TALISHA MARTEL MD,PHD Alk.Phos Isoenzymes Interp TNP Complete Blood Count no Diff Reviewed date:02/25/2025 08:13:04 AM Interpretation: Performing Lab:[facility], [address] [place] [phone] Notes/Report: White Blood Count 9.9 4.8-10.8 X10*3/uL N Red Blood Count 4.42 4.60-5.80 X10*6/uL L Hemoglobin 13.3 14.0-18.0 g/dl L Hematocrit 37.9 42.0-52.0 % L Mean Corpuscular Volume 85.7 80.0-98.0 fL N Mean Corpuscular Hemoglobin 30.1 27.0-33.0 pg N Mean Corpuscular HGB Conc 35.1 31.0-36.0 g/dl N Red Cell Distribution Width 13.7 11.0-16.0 % N Platelet Count 482 160-400 X10*3/uL H Mean Platelet Volume 9.3 9.4-12.4 fL L NRBC Pct Auto 0.0 0.0-0.2 /100WBC N NRBC Abs Auto 0.000 0.0-0.012 X10*3/uL N Prothrombin Time INR Reviewed date:02/25/2025 08:12:56 AM Interpretation: Performing Lab:[facility], [address] [place] [phone] Notes/Report: Prothrombin Time 13.8 10.9-12.4 SEC H INTERNATIONAL NORM RATIO 1.2 0.9-1.1 H INTERNATIONAL NORMALIZED RATIO (INR) REFERENCE RANGES Reference Range For patients not on anticoagulant therapy: 0.9 - 1.1 INR ranges for oral anticoagulant therapy: For prevention and treatment of venous thrombosis and pulmonary embolism: 2.0 - 3.0 For acute myocardial infarction with aspirin therapy: 2.0 - 3.0 For acute myocardial infarction without aspirin therapy: 3.0 - 4.0 For patients with mechanical prosthetic heart valves: 2.5 - 3.5 Liver Panel Reviewed date:02/25/2025 08:12:49 AM Interpretation: Performing Lab:[facility], [address] [place] [phone] Notes/Report: Bilirubin Total 1.4 0.0-1.0 mg/dL H Bilirubin Direct 0.8 0.0-0.5 mg/dL H Aspartate Amino Transferase 33 5-37 U/L N Alanine Aminotransferase 24 0-40 U/L N Total Protein 8.3 6.5-8.0 g/dL H Albumin Level 4.4 3.5-5.0 g/dL N Alkaline Phosphatase 565 39-117 U/L H C Reactive Protein Reviewed date:02/25/2025 08:12:39 AM Interpretation: Performing Lab:[facility], [address] [place] [phone] Notes/Report: C Reactive Protein 5.90 < or = 0.50 mg/dL H Liver Panel Reviewed date:03/20/2025 02:30:16 PM Interpretation: Performing Lab:[facility], [address] [place] [phone] Notes/Report: Bilirubin Total 1.0 0.0-1.0 mg/dL N Bilirubin Direct 0.6 0.0-0.5 mg/dL H Aspartate Amino Transferase 41 5-37 U/L H Alanine Aminotransferase 16 0-40 U/L N Total Protein 8.2 6.5-8.0 g/dL H Albumin Level 4.2 3.5-5.0 g/dL N Alkaline Phosphatase 462 39-117 U/L H Basic Metabolic Panel Fastin g Reviewed date:03/20/2025 02:31:46 PM Interpretation: Performing Lab:[facility], [address] [place] [phone] Notes/Report: Sodium 131 135-145 mmol/L L Potassium 3.7 3.3-5.1 mmol/L N Chloride 95 96-108 mmol/L L Carbon Dioxide 22 22-29 mmol/L N Anion Gap 18 12-20 N Blood Urea Nitrogen 16 9-16 mg/dL N Creatinine 1.04 0.5-1.4 mg/dL N Creatinine Clr Calc Pharmacy 80.4 eGFR (calculated from the MDRD study equation) and eCrCl (calculated from the Cockcroft-Gault equation) are based on different parameters and may not yield comparable results. If eCrCl result is absurd, please check patient's height/weight. Estimated Glomerular Filt Rate > 60 Chronic Kidney Disease: Estimated GFR < 60 mL/min/1.73m2 Severe Kidney Disease: Estimated GFR < 15 mL/min/1.73m2 Glucose Fasting 165 60-99 mg/dL H A fasting glucose of 126 mg/dl or greater on more than one occasion is considered diagnostic of diabetes. Calcium 9.7 8.4-10.2 mg/dL N Electrolytes Reviewed date:03/20/2025 02:31:22 PM Interpretation: Performing Lab:[facility], [address] [place] [phone] Notes/Report: Sodium 131 135-145 mmol/L L Potassium 3.7 3.3-5.1 mmol/L N Chloride 98 96-108 mmol/L N Carbon Dioxide 24 22-29 mmol/L N Anion Gap 13 12-20 N Pathology Reviewed date:03/25/2025 03:25:10 PM Interpretation: Performing Lab:[facility], [address] [place] [phone] Notes/Report: US paracentesis abd w/image Reviewed date:03/20/2025 02:31:18 PM Interpretation: Performing Lab: Notes/Report: [address] [address] Ultrasound Report Signed Patient: Mickey Cardoza MR#: [id number] : 1965 Acct:[id number] Age/Sex: 59 / M ADM Date: 03/20/25 Loc: [facility] Attending Dr: Meir Quintanilla MD Ordering Physician: Meir Quintanilla MD Date of Service: 03/20/25 Procedure(s): US paracentesis abd w/image Accession Number(s): [id number] cc: Jaycee Montoya; Meir Quintanilla MD Reason for Exam: ascites EXAMINATION: US GUIDED PARACENTESIS CLINICAL INFORMATION: Ascites. COMPARISON: Ultrasound-guided paracentesis 01/21/2025. TECHNIQUE: Only explaining ultrasound-guided paracentesis procedure, benefits and risk, a written consent was obtained. Patient was placed supine on ultrasound stretcher and preliminary ultrasound imaging was obtained through the 4 quadrants of the abdomen. An optimal site was selected along the right lower quadrant and marked. The marked site was cleaned and draped in usual sterile manner. 1% lidocaine was injected at the puncture site. Through a small skin incision a 5 Turkmen short Yueh catheter was advanced from the skin incision into the peritoneal cavity. After observing fluid return, stylet was withdrawn and catheter connected to vacuum bottle via connecting cannula. After obtaining all fluid and observing no more fluid remaining, catheter was removed and complete hemostasis achieved at puncture site. Sterile dressing applied post procedure. Patient tolerated procedure extremely well. FINDINGS: On preliminary ultrasound imaging there is moderate to large ascites. Approximately 6.8 L of fluid was drained from right lower quadrant. None of this fluid was sent to lab. US/US paracentesis abd w/image IMPRESSION: Successful ultrasound-guided therapeutic paracentesis performed without immediate complications. Electronically signed by: Oli Ambriz MD 03/20/2025 12:45 PM EDT Dictated By: Oli Ambriz MD Signed By: <Electronically signed by Oli Ambriz MD in OV> 03/20/25 1245 DD/ 0934 TD/TT: 03/20/25 1030 Eggs Inspector: DEBBIE Complete Blood Count Auto Di ff (Not yet reviewed by provider) Interpretation: Performing Lab:[facility], [address] [place] [phone] Notes/Report: White Blood Count 8.0 4.8-10.8 X10*3/uL N Red Blood Count 5.03 4.60-5.80 X10*6/uL N Hemoglobin 14.2 14.0-18.0 g/dl N Hematocrit 44.1 42.0-52.0 % N Mean Corpuscular Volume 87.7 80.0-98.0 fL N Mean Corpuscular Hemoglobin 28.2 27.0-33.0 pg N Mean Corpuscular HGB Conc 32.2 31.0-36.0 g/dl N Red Cell Distribution Width 15.3 11.0-16.0 % N Platelet Count 390 160-400 X10*3/uL N Mean Platelet Volume 9.4 9.4-12.4 fL N Neutrophils Percent Auto 78.1 45-73 % H Imm Gran Pct Auto 0.6 0.0-0.4 % H Lymphocytes Percent Auto 9.8 20-40 % L Monocytes Percent Auto 7.0 2-11 % N Eosinophils Percent Auto 3.5 0-4 % N Basophils Percent Auto 1.0 0-2 % N NRBC Pct Auto 0.0 0.0-0.2 /100WBC N Neutrophils Absolute Auto 6.2 2.0-8.3 x10*3/uL N Imm Gran Abs Auto 0.05 0.00-0.03 X10*3/uL H Lymphocytes Absolute Auto 0.8 1.2-4.9 X10*3/uL L Monocytes Absolute Auto 0.6 0.1-1.2 X10*3/uL N Eosinophils Absolute Auto 0.3 0.0-0.4 X10*3/uL N Basophils Absolute Auto 0.1 0.0-0.2 X10*3/uL N NRBC Abs Auto 0.000 0.0-0.012 X10*3/uL N Comprehensive Met. Panel (No t yet reviewed by provider) Interpretation: Performing Lab:[facility] [phone] Notes/Report: Sodium 137 135-145 mmol/L N Potassium 4.5 3.3-5.1 mmol/L Chloride 103 96-108 mmol/L N Carbon Dioxide 24 22-29 mmol/L N Anion Gap 15 12-20 N Blood Urea Nitrogen 18 9-16 mg/dL H Creatinine 1.02 0.5-1.4 mg/dL N Estimated Glomerular Filt Rate > 60 Chronic Kidney Disease: Estimated GFR < 60 mL/min/1.73m2 Severe Kidney Disease: Estimated GFR < 15 mL/min/1.73m2 Glucose Random 121 60-115 mg/dL H Calcium 10.1 8.4-10.2 mg/dL N Bilirubin Total 1.2 0.0-1.0 mg/dL H Aspartate Amino Transferase 37 5-37 U/L N Alanine Aminotransferase 17 0-40 U/L N Total Protein 7.7 6.5-8.0 g/dL N Albumin Level 4.2 3.5-5.0 g/dL N Alkaline Phosphatase 422 39-117 U/L H Liver Panel (Not yet review ed by provider) Interpretation: Performing Lab:[address] [address] Notes/Report: Bilirubin Direct 0.6 0.0-0.5 mg/dL H Prothrombin Time INR Reviewed date:03/20/2025 02:32:03 PM Interpretation: Performing Lab:[address] [address] Notes/Report: Prothrombin Time 13.8 10.9-12.4 SEC H INTERNATIONAL NORM RATIO 1.2 0.9-1.1 H INTERNATIONAL NORMALIZED RATIO (INR) REFERENCE RANGES Reference Range For patients not on anticoagulant therapy: 0.9 - 1.1 INR ranges for oral anticoagulant therapy: For prevention and treatment of venous thrombosis and pulmonary embolism: 2.0 - 3.0 For acute myocardial infarction with aspirin therapy: 2.0 - 3.0 For acute myocardial infarction without aspirin therapy: 3.0 - 4.0 For patients with mechanical prosthetic heart valves: 2.5 - 3.5 Complete Blood Count no Diff Reviewed date:03/20/2025 02:31:59 PM Interpretation: Performing Lab:[address] [place] [address] Notes/Report: White Blood Count 10.0 4.8-10.8 X10*3/uL N Red Blood Count 4.78 4.60-5.80 X10*6/uL N Hemoglobin 13.3 14.0-18.0 g/dl L Hematocrit 41.8 42.0-52.0 % L Mean Corpuscular Volume 87.4 80.0-98.0 fL N Mean Corpuscular Hemoglobin 27.8 27.0-33.0 pg N Mean Corpuscular HGB Conc 31.8 31.0-36.0 g/dl N Red Cell Distribution Width 13.6 11.0-16.0 % N Platelet Count 446 160-400 X10*3/uL H Mean Platelet Volume 9.3 9.4-12.4 fL L NRBC Pct Auto 0.0 0.0-0.2 /100WBC N NRBC Abs Auto 0.000 0.0-0.012 X10*3/uL N US abdomen limited Reviewed date:11/14/2024 03:37:41 PM Interpretation: Performing Lab: Notes/Report: [address] [address] Ultrasound Report Signed Patient: Mickey Cardoza MR#: [id number] : 1965 Acct:[id number] Age/Sex: 59 / M ADM Date: 11/12/24 Loc: [facility] 460-[address]: Bradley BOWLING Ordering Physician: Meir Quintanilla MD Date of Service: 11/14/24 Procedure(s): US abdomen limited Accession Number(s): [id number] cc: Meir Quintanilla MD; Physician,None EXAMINATION: US [...] Oli Ambriz MD 11/14/2024 11:46 AM EDT RP Dictated By: Oli Ambriz MD Signed By: <Electronically signed by Oli Ambriz MD in OV> 11/14/24 1146 DD/ 1012 TD/TT: 11/14/24 1014 Eggs Inspector: DEBBIE Ferritin Reviewed date:11/14/2024 03:38:06 PM Interpretation: Performing Lab:[facility], [address] [place] [phone] Notes/Report: Ferritin 506 20-250 ng/mL H IRON PROFILE Reviewed date:11/14/2024 03:38:11 PM Interpretation: Performing Lab:[facility], [address] [place] [phone] Notes/Report: Iron 50 45-160 mcg/dL N Total Iron Binding Capacity 141 228-428 mcg/dL L Percent Iron Saturation 35 15-50 % N Unsaturated Iron Binding 91 Magnesium Reviewed date:11/14/2024 03:38:31 PM Interpretation: Performing Lab:[facility], [address] [place] [phone] Notes/Report: Magnesium 1.6 1.6-2.6 mg/dL N Basic Metabolic Panel Reviewed date:11/14/2024 03:38:37 PM Interpretation: Performing Lab:[facility], [address] [place] [phone] Notes/Report: Sodium 133 135-145 mmol/L L Potassium 4.2 3.3-5.1 mmol/L N Chloride 100 96-108 mmol/L N Carbon Dioxide 26 22-29 mmol/L N Anion Gap 11 12-20 L Blood Urea Nitrogen 5 9-16 mg/dL L Creatinine 0.63 0.5-1.4 mg/dL N Creatinine Clr Calc Pharmacy 140.2 eGFR (calculated [...] 15 mL/min/1.73m2 Glucose Random 122 60-115 mg/dL H Calcium 8.5 8.4-10.2 mg/dL Liver Panel Reviewed date:11/14/2024 03:38:45 PM Interpretation: Performing Lab:[facility], [address] [place] [phone] Notes/Report: Bilirubin Total 2.3 0.0-1.0 mg/dL H Bilirubin Direct 1.6 0.0-0.5 mg/dL H Aspartate Amino Transferase 68 5-37 U/L H Alanine Aminotransferase 13 0-40 U/L N Total Protein 6.7 6.5-8.0 g/dL N Albumin Level 2.7 3.5-5.0 g/dL L Alkaline Phosphatase 218 39-117 U/L H Hold Lav - Possible Hematolo gy Reviewed date:11/14/2024 08:10:12 AM Interpretation: Performing Lab:[facility], [address] [place] [phone] Notes/Report: Hold Lav - Possible Hematology SEE NOTE Specimen will be held untested for 8 hours. Call Hematology if testing is desired. Complete Blood Count Auto Di ff Reviewed date:11/14/2024 03:37:46 PM Interpretation: Performing Lab:[facility], [address] [place] [phone] Notes/Report: White Blood Count 9.9 4.8-10.8 X10*3/uL N Red Blood Count 3.71 4.60-5.80 X10*6/uL L Hemoglobin 12.5 14.0-18.0 g/dl L Hematocrit 37.0 42.0-52.0 % L Mean Corpuscular Volume 99.7 80.0-98.0 fL H Mean Corpuscular Hemoglobin 33.7 27.0-33.0 pg H Mean Corpuscular HGB Conc 33.8 31.0-36.0 g/dl N Red Cell Distribution Width 14.4 11.0-16.0 % N Platelet Count 388 160-400 X10*3/uL N Mean Platelet Volume 10.3 9.4-12.4 fL N Neutrophils Percent Auto 74.4 45-73 % H Imm Gran Pct Auto 0.3 0.0-0.4 % N Lymphocytes Percent Auto 14.5 20-40 % L Monocytes Percent Auto 8.5 2-11 % N Eosinophils Percent Auto 1.7 0-4 % N Basophils Percent Auto 0.6 0-2 % N NRBC Pct Auto 0.0 0.0-0.2 /100WBC N Neutrophils Absolute Auto 7.4 2.0-8.3 x10*3/uL N Imm Gran Abs Auto 0.03 0.00-0.03 X10*3/uL N Lymphocytes Absolute Auto 1.4 1.2-4.9 X10*3/uL N Monocytes Absolute Auto 0.8 0.1-1.2 X10*3/uL N Eosinophils Absolute Auto 0.2 0.0-0.4 X10*3/uL N Basophils Absolute Auto 0.1 0.0-0.2 X10*3/uL N NRBC Abs Auto 0.000 0.0-0.012 X10*3/uL N Reason For Referral No Information Medications Medication SIG (Take, Route, Frequency, Duration) Notes Start Date End Date Status Gabapentin 300 MG Capsule 1 capsule Oral ly Once a day Active Multi Vitamin - Tablet 1 tablet Orally O nce a day Active traZODone HCl 50 MG Tablet 1 tablet at b edtime as needed Orally Once a day; Duration: 30 day(s) 02/23/2025 Active Furosemide 40 MG Tablet 1 tablet Orally Once a day Active Folic Acid 1 MG Tablet 1 tablet Orally O nce a day Active Albumin Human 25 % Solution 50 g Intrave nous once; Duration: 1 days 04/20/2025 Active Spironolactone 100 MG Tablet 1 tablet Or ally Once a day Active Immunizations Vaccine Route Administration Date Status Comme nts Influenza Unknown 02/12/2024 Administered Social History Tobacco Use: Social History Observation Description Date Details (start date - stop date) Never Smoker NA - NA Social History Drug/Alcohol: Social Info Question Answer Notes AUDIT-C (Standard) Did you have a drink containing alcohol in the past year? No Points 0 Interpretation Negative Tobacco Use: Social Info Question Answer Notes Tobacco Control (Standard) Tobacco use: Nonsmoker Additional Details Category Social Info Options Details Miscellaneous: Marital status: Occupation: unemployed Problems Problem Type SNOMED Code ICD Code Onset Dates Problem Status W/U Status Risk Notes Problem Information temporarily unavailable Ascites due to alcoholic cirrhosis (K70.31) Active confirmed Problem Information temporarily unavailable Hepatic cyst (K76.89) Active confirmed Vital Signs Temperature 97.9 degrees Fahrenheit 04/20/2025 Blood pressure diastolic 01 mm Hg 04/20/2025 Height 73 in 04/20/2025 Blood pressure systolic 001 mm Hg 04/20/2025 Weight 168.6 lbs 04/20/2025 BMI 22.24 kg/m2 04/20/2025 Encounters Encounter Location Date Provider Diagnosis [facility] [address] [place] [phone] 03/20/2025 Meir Quintanilla Jr [facility] [address] [place] [phone] 02/23/2025 Meir Quintanilla Jr Hepatic cyst K76.89 ; Ascites due to alcoholic cirrhosis K70.31 and Encounter for screening colonoscopy Z12.11 [facility] [address] [place] [phone] 04/20/2025 Meir Quintanilla Jr Ascites due to alcoholic cirrhosis K70.31 and Hepatic cyst K76.89 [facility] [address] [place] [phone] 11/25/2024 Meir Quintanilla Jr [facility] [address] [place] [phone] 01/23/2025 Meir Quintanilla Jr [facility] [address] [place] [phone] 03/03/2025 Meir Quintanilla Jr [facility] [address] [place] [phone] 03/25/2025 Meir Quintanilla Jr [facility] [address] [place] [phone] 04/20/2025 Meir Quintanilla Jr Ascites due to alcoholic cirrhosis K70.31 Assessments Encounter Date Diagnosis (ICD Code) Assessment Notes Treatment Notes Treatment Clinical Notes Section Notes 02/23/2025 Ascites due to alcoholic cirrhosis (ICD-10 - K70.31) We discussed EGD and colonoscopy today. He agrees to proceed. 02/23/2025 Hepatic cyst (ICD-10 - K76.89) We discussed EGD and colonoscopy today. He agrees to proceed. 04/20/2025 Ascites due to alcoholic cirrhosis (ICD-10 [...] alcohol for more than 6 months. 04/20/2025 Ascites due to alcoholic cirrhosis (ICD-10 - K70.31) 02/23/2025 Encounter for screening colonoscopy (ICD-10 - Z12.11) We discussed EGD and colonoscopy today. He agrees to proceed. Plan Of Treatment Pending Test Test Name Order Date CHEM 7 PROFILE 04/20/2025 LIVER PROFILE 04/20/2025 LIVER PROFILE 02/23/2025 CBC w/o DIFF 04/20/2025 CBC w/o DIFF 02/23/2025 PROTHROMBIN TIME (PT, INR) 02/23/2025 PARACENTESIS W GUIDANCE 04/20/2025 Complete Blood Count Auto Diff Comprehensive Met. Panel 04/20/2025 Liver Panel 04/20/2025 Liver Fibrosis Pnl 04/20/2025 Future Test Test Name Order Date UPPER GI ENDOSCOPY 02/23/2025 COLONOSCOPY 02/23/2025 Next Appt Details Provider Name:Meir fleming , 10/21/2025 10:20:00 AM, [address], [address], [place], [address], Insurance Providers Payer Name Payer Address Payer Phone Subscriber Number Group Number Insured Name Patient Relationship to Insured Coverage Start Date Coverage End Date [facility] [address] [facility] [place] [phone] [id number] MICKEY CARDOZA Self - patient is the insured MEDICA[employer] OF [facility] [address] [place] [address] [id number] NANI MICKEY Self - patient is the insured Medical (General) History Medical History History ICD Code Alcoholic hepatitis with ascites Hepatic cyst Endoscopy 03/21, grade 1 varices, portal hypertensive gastropathy Colonoscopy 03/21, 3 polyps, follow-up c olonoscopy 3 years. Hospitalization History Reason Date(Month/Year) ascites, alcoholic hepatitis
--- OUTSIDE RECORDS SUMMARY | 2025-04-21 14:34 | XMS_ITS | Clinical Summary ---
Author Organization [facility] Address [address] [address] Phone Care Team Providers Care Writing Center Director Name Role Phone Unavailable Primary Care Provider Unavailabl e Encounters Date Type Department Care Team Description 01/22/2025 Orders Only [facility] [address] [place] [id number] Homehealth, Interface ProviderMD from Last 3 Months [...] file Medical Devices Not on file Insurance [facility] [employer] [facility] Additional Source Comments The information contained in this document represents components of the legal health record. It is not the complete legal health record.[facility]
--- NOTE | ~2025-04-22 | US_ITS ---
EXAMINATION: US GUIDED PARACENTESIS CLINICAL INFORMATION: Ascites. Therapeutic drainage. COMPARISON: 01/21/2025. TECHNIQUE: Risks and benefits and possible complications were discussed with the patient and consent form was signed. A safe pocket of ascitic fluid in the left lower quadrant was identified using ultrasound guidance, and the overlying skin was marked. The area was then prepped and draped in sterile fashion. 1% lidocaine was used as a local anesthetic. Using ultrasound guidance, a 5 Ethiop[place] Yueh catheter was placed into the ascitic pocket. 9.7 liters of cloudy, yellowish fluid was removed passively via vacuum bottle. The catheter was then removed. The patient tolerated the procedure well. There were no immediate complications. A few senior patient account representative images from before and after the examination were obtained. US/US paracentesis abd w/image IMPRESSION: Ultrasound-guided therapeutic paracentesis as described above. Removal of 9.7 L of cloudy, yellowish ascites. No immediate complications. Electronically signed by: Sam Chand MD 04/22/2025 01:06 PM JARRETT HICKS
[2025-04-22 07:04] VITALS: BMI 22.3
[2025-04-22 07:14] VITALS: BP 126/101; PULSE 97; RESP 16; TEMP 36.2; O2SAT 96
[2025-04-22 07:17] LABS: INTERNATIONAL NORM RATIO 1.1 (0.9-1.1); Prothrombin Time 14.0 SEC (11.2-13.5)
--- NOTE | 2025-04-22 08:45 | PC.NURSE ---
tech to speak with the radiologists to see of albumin can be given after the procedure.
[2025-04-22 10:00] VITALS: BP 114/85; PULSE 84; RESP 16; TEMP 36.3; O2SAT 98
[2025-04-22] MEDS: Albumin Human 25 % 100 ML 200 ML IV ×2 (10:08→10:25)
[2025-04-22] MEDS: Lidocaine HCl 1 % MPF 5 ML VIAL SUBCUT (10:12)
[2025-04-22 10:15] VITALS: BP 122/63; PULSE 79; RESP 17; O2SAT 96
[2025-04-22 10:30] VITALS: BP 114/79; PULSE 73; RESP 16; O2SAT 99
[2025-04-22 10:45] VITALS: BP 119/80; PULSE 80; RESP 16; TEMP 36.1; O2SAT 99
== END 2025-04-22 10:49 | disposition home or self-care (01) ==
PROVIDERS: Radiology Diagnostic Radiology; PCP Internal Medicine; Visit Provider Internal Medicine Gastroenterology
DX: K70.31 Alcoholic cirrhosis of liver with ascites (principal); K76.89 Other specified diseases of liver; Z79.899 Other long term (current) drug therapy
CPT/HCPCS: 36415; 49083; 85610; J2003; P9047

== ENCOUNTER → 2025-04-22 09:57 | Outpatient (BNV) | payer OTHER, SELFPAY | PROVIDERS: PCP Internal Medicine; Visit Provider Radiology Diagnostic Radiology | DX: R18.8 Other ascites (principal) | CPT/HCPCS: 49083 ==

== ENCOUNTER 2025-05-06 09:02 | Day surgery (SDC) | payer OTHER, SELFPAY ==
--- NOTE | ~2025-05-06 | FL_ITS ---
EXAMINATION: XR LUMBAR PUNCTURE CLINICAL INFORMATION: G61.81 - Chronic inflammatory demyelinating polyneuritis COMPARISON: None available. TECHNIQUE: Informed consent was obtained from the patient. History and allergies were reviewed. Timeout was performed. Using fluoroscopic guidance, the L2-3 right interlaminar space was identified, marked, and the overlying skin prepped and draped in sterile fashion. Skin and subcutaneous tissues were anesthetized with 1% lidocaine. Subsequently, a 20-gauge Quincke spinal needle was advanced into the thecal sac, and clear CSF was noted at the needle hub. Approximately 13 mL of clear CSF was obtained passively, and sent for laboratory analysis. The patient tolerated the procedure well. There were no immediate complications. 1 fluoroscopic spot image obtained. FLUOROSCOPY TIME: 17 seconds DOSE AREA PRODUCT: 237.2 uGy-m2 (microgray-meter squared) FL/FL guided lumbar puncture LP IMPRESSION: Successful fluoroscopic guided L2-3 interlaminar lumbar puncture with collection of 13 mL of clear CSF. No immediate complication. Electronically signed by: Sam Chand MD 05/06/2025 12:10 PM JARRETT
[2025-05-06 09:33] LABS: MANUAL DIFF FLAG NO
[2025-05-06 09:36] LABS: Hematocrit 48.1 % (42.0-52.0); Hemoglobin 15.8 g/dl (14.0-18.0); Imm Gran Abs Auto 0.14 X10*3/uL (0.00-0.03); Imm Gran Pct Auto 1.5 % (0.0-0.4); Lymphocytes Absolute Auto 0.9 X10*3/uL (1.2-4.9); Mean Corpuscular HGB Conc 32.8 g/dl (31.0-36.0); Mean Corpuscular Hemoglobin 27.6 pg (27.0-33.0); Mean Corpuscular Volume 83.9 fL (80.0-98.0); NRBC Abs Auto 0.000 X10*3/uL (0.0-0.012); NRBC Pct Auto 0.0 /100WBC (0.0-0.2); Platelet Count 417 X10*3/uL (160-400); Red Blood Count 5.73 X10*6/uL (4.60-5.80); White Blood Count 9.2 X10*3/uL (4.8-10.8)
[2025-05-06 09:39] VITALS: BMI 19.5
[2025-05-06 09:41] LABS: INTERNATIONAL NORM RATIO 1.1 (0.9-1.1); Prothrombin Time 13.8 SEC (11.2-13.5)
[2025-05-06 09:51] LABS: Anion Gap 15 (12-20); Blood Urea Nitrogen 27 mg/dL (9-16); Calcium 10.5 mg/dL (8.4-10.2); Carbon Dioxide 25 mmol/L (22-29); Chloride 97 mmol/L (96-108); Creatinine Clr Calc Pharmacy 64.6; Estimated Glomerular Filt Rate > 60; Potassium 4.5 mmol/L (3.3-5.1); Sodium 132 mmol/L (135-145)
[2025-05-06 10:06] VITALS: BP 111/92; PULSE 92; RESP 16; TEMP 36.1; O2SAT 97
[2025-05-06 11:25] VITALS: BP 113/91; PULSE 80; RESP 16; TEMP 36.1; O2SAT 99
[2025-05-06 11:40] VITALS: BP 122/85; PULSE 78; RESP 16; O2SAT 97
[2025-05-06 11:55] VITALS: BP 124/88; PULSE 79; RESP 16; O2SAT 100
[2025-05-06 12:10] VITALS: BP 118/87; PULSE 78; RESP 16; O2SAT 100
[2025-05-06 12:15] VITALS: BP 113/81; PULSE 79; RESP 16; TEMP 36.1; O2SAT 97
[2025-05-06 12:43] LABS: White Blood Cell CSF 1 MM*3
[2025-05-06 12:44] LABS: Lymphocytes CSF 3 %; Red Blood Cell CSF 6 MM*3
[2025-05-06 12:45] LABS: CSF Other Cells % 1 %
== END 2025-05-06 12:31 | disposition home or self-care (01) ==
PROVIDERS: Radiology Diagnostic Radiology; PCP Internal Medicine; Visit Provider Registered Nurse
PROC: 009U3ZZ Drainage of Spinal Canal, Percutaneous Approach (ICD-10-PCS; CPT 62270; principal; 2025-05-06 11:00)
DX: G61.81 Chronic inflammatory demyelinating polyneuritis (principal); K74.60 Unspecified cirrhosis of liver; Z79.899 Other long term (current) drug therapy; F10.21 Alcohol dependence, in remission
CPT/HCPCS: 36415; 62328; 80048; 82945; 84157; 85025; 85610; 87015; 87070; 87205; 89051; J2003

== ENCOUNTER → 2025-05-06 11:00 | Outpatient (BNV) | payer OTHER, SELFPAY | PROVIDERS: PCP Internal Medicine; Visit Provider Radiology Diagnostic Radiology | DX: G61.81 Chronic inflammatory demyelinating polyneuritis (principal) | CPT/HCPCS: 62328 ==